=== PATIENT | female | born 1950 | race Caucasian/White ===

== ENCOUNTER 2018-01-17 11:36 | Inpatient (IN) | payer MEDICARE ==
[2018-01-17] MEDS ORDERED: PIPERACILLIN-TAZOBACTAM 3.375 GM in DEXTROSE/WATER 1 50ML.BAG IVPB STA (12:05)
[2018-01-17] MEDS ORDERED: VANCOMYCIN 1,500 MG in SODIUM CHLORIDE 0.9% 250 ML IVPB STA (12:11)
--- NOTE | 2018-01-17 12:19 | ED ---
Wound/Laceration HPI - General Chief Complaint: Wound/Laceration Stated Complaint: wound left foot and toe, sent by dr mattson Time Seen by Provider: 01/17/18 11:48 Source: patient, RN notes reviewed Mode of arrival: wheelchair Limitations: no limitations - History of Present Illness Initial Comments: Physical 59-year-old female history of diabetes who is had a wound to her left great toe for over a week she states she has been on antibiotics for this for about 9 days and has gotten worse she was seen in clinic today and found have a deep wound to the plantar aspect of the toe and sent here for evaluation. She denies much pain she does have neuropathy. She does not recall a particular trauma. No overt fevers or chills sometimes sweats. No chest pain cough abdominal pain she does state that her hemoglobin A1c hours runs high sometimes in the 12 range - Related Data Home Medications Medication Instructions Recorded Confirmed Atenolol 25 mg PO HS 08/22/16 01/17/18 Atorvastatin [Lipitor] 10 mg PO HS 08/22/16 01/17/18 Insulin Detemir [Levemir] 40 unit SQ HS 08/22/16 01/17/18 Omeprazole 20 mg PO DAILY PRN 08/22/16 01/17/18 Cephalexin [Keflex] 500 mg PO TID 01/16/18 01/17/18 Cholecalciferol [Vitamin D3] 2,000 unit PO DAILY 01/16/18 01/17/18 INSULIN LISPRO (humaLOG) [humaLOG] See Protocol SQ AC-TID PRN 01/16/18 01/17/18 Sulfamethox-Tmp 800-160Mg [Bactrim 1 tab PO Q12HR 01/16/18 01/17/18 DS 800-160 mg] Allergies Allergy/AdvReac Type Severity Reaction Status Date / Time aspirin Allergy Anaphylaxis Verified 01/17/18 12:04 ibuprofen [From Motrin] Allergy Anaphylaxis Verified 01/17/18 12:04 NSAIDS (Non-Steroidal Allergy Anaphylaxis Verified 01/17/18 12:04 Anti-Inflamma flu vac Allergy Anaphylaxis Uncoded 01/17/18 12:04 Review of Systems ROS Statement: Those systems with pertinent positive or pertinent negative responses have been documented in the HPI. ROS Other: All systems not noted in ROS Statement are negative. Past Medical History Past Medical History: Asthma, Diabetes Mellitus, GERD/Reflux, Skin Disorder Additional Past Medical History / Comment(s): "gallbladder functioning 30%", hx gout, woung left great toe, frequent UTI's History of Any Multi-Drug Resistant Organisms: None Reported Past Surgical History: Back Surgery, Ear Surgery, Hysterectomy, Tonsillectomy Additional Past Surgical History / Comment(s): pilonidial cyst, spinal fusion, renée cataracts, Past Anesthesia/Blood Transfusion Reactions: Motion Sickness Past Psychological History: No Psychological Hx Reported Smoking Status: Former smoker Past Alcohol Use History: Occasional - Past Family History Mother Family Medical History: Cancer Father Additional Family Medical History / Comment(s): blood clot in arm Brother(s) Family Medical History: Cancer General Exam - General Exam Comments Initial Comments: This is a well-developed well-nourished awake alert oriented 3 female Limitations: no limitations General appearance: alert, in no apparent distress Head exam: Present: atraumatic, normocephalic, normal inspection Eye exam: Present: normal appearance, PERRL, EOMI. Absent: scleral icterus, conjunctival injection, periorbital swelling ENT exam: Present: normal exam, mucous membranes moist Neck exam: Present: normal inspection. Absent: tenderness, meningismus, lymphadenopathy Respiratory exam: Present: normal lung sounds bilaterally. Absent: respiratory distress, wheezes, rales, rhonchi, stridor Cardiovascular Exam: Present: regular rate, normal rhythm, normal heart sounds. Absent: systolic murmur, diastolic murmur, rubs, gallop, clicks GI/Abdominal exam: Present: soft, normal bowel sounds. Absent: distended, tenderness, guarding, rebound, rigid Extremities exam: Present: full ROM, other (Examination left foot reveals an ulceration to the plantar aspect of the great toe distal phalanx it appears be going down to tendon and bone. Also there is evidence of blistering around the toe with diminished capillary refill. No increased temperature. Commands foot appears be unremarkable no lymphangitis. Pulses are maintained no lymphadenopathy proximal to this decreased sensation on exam of the foot). Absent: tenderness, pedal edema, joint swelling, calf tenderness Back exam: Present: normal inspection Neurological exam: Present: alert, oriented X3, CN II-XII intact Psychiatric exam: Present: normal affect, normal mood Skin exam: Present: warm, dry, intact, normal color. Absent: rash Course Vital Signs 01/17/18 01/17/18 11:43 12:46 Temperature 97.5 F L Pulse Rate 57 L 51 L Respiratory 18 19 Rate Blood Pressure 209/82 177/67 O2 Sat by Pulse 98 98 Oximetry Medical Decision Making - Medical Decision Making I did discuss findings with the patient she does not recall any trauma. I did discuss case with Dr. Mcconnell the patient will be admitted with consultation as noted by Dr. Marte and Dr. Cadena. - Lab Data Result diagrams: 01/17/18 12:10 01/17/18 12:10 Lab Results 01/17/18 01/17/18 01/17/18 Range/Units 12:10 12:10 12:10 WBC 17.4 H (3.8-10.6) k/uL RBC 4.28 (3.80-5.40) m/uL Hgb 12.6 (11.4-16.0) gm/dL Hct 38.2 (34.0-46.0) % MCV 89.4 (80.0-100.0) fL MCH 29.4 (25.0-35.0) pg MCHC 32.9 (31.0-37.0) g/dL RDW 13.6 (11.5-15.5) % Plt Count 551 H (150-450) k/uL Neutrophils % 66 % Lymphocytes % 24 % Monocytes % 4 % Eosinophils % 3 % Basophils % 1 % Neutrophils # 11.5 H (1.3-7.7) k/uL Lymphocytes # 4.2 (1.0-4.8) k/uL Monocytes # 0.6 (0-1.0) k/uL Eosinophils # 0.5 (0-0.7) k/uL Basophils # 0.2 (0-0.2) k/uL Sodium 139 (137-145) mmol/L Potassium 6.3 H* (3.5-5.1) mmol/L Chloride 99 (98-107) mmol/L Carbon Dioxide 29 (22-30) mmol/L Anion Gap 11 mmol/L BUN 19 H (7-17) mg/dL Creatinine 1.20 H (0.52-1.04) mg/dL Est GFR (CKD-EPI)AfAm 54 (>60 ml/min/1.73 sqM) Est GFR (CKD-EPI)NonAf 47 (>60 ml/min/1.73 sqM) Glucose 123 H (74-99) mg/dL Plasma Lactic Acid Wallace 1.2 (0.7-2.0) mmol/L Calcium 10.0 (8.4-10.2) mg/dL Magnesium 1.7 (1.6-2.3) mg/dL Total Bilirubin 0.4 (0.2-1.3) mg/dL AST 27 (14-36) U/L ALT 51 (9-52) U/L Alkaline Phosphatase 328 H (38-126) U/L Total Protein 7.1 (6.3-8.2) g/dL Albumin 3.7 (3.5-5.0) g/dL Acetone, Qual Negative (Negative) - Radiology Data Radiology results: report reviewed (I did review the imaging there is evidence a fracture-dislocation of the distal pharynx of left great toe soft tissue ulceration as well but not ruled out), image reviewed Disposition Clinical Impression: Diabetic ulcer of toe, Cellulitis of great toe of left foot, Leukocytosis, Subluxation of metatarsophalangeal joint of great toe Disposition: ADMITTED IP TO THIS [facility] Condition: Stable Referrals: Norman Jewell MD [Primary Care Provider] - 1-2 days
[2018-01-17 12:30] LABS: Basophils # (A) 0.2 k/uL (0-0.2); Basophils % (A) 1 %; Eosinophils # (A) 0.5 k/uL (0-0.7); Eosinophils % (A) 3 %; HCT 38.2 % (34.0-46.0); HGB 12.6 gm/dL (11.4-16.0); Lymphocytes # (A) 4.2 k/uL (1.0-4.8); Lymphocytes % (A) 24 %; MCH 29.4 pg (25.0-35.0); MCHC 32.9 g/dL (31.0-37.0); MCV 89.4 fL (80.0-100.0); Mean Platelet Volume 6.8; Monocytes # (A) 0.6 k/uL (0-1.0); Monocytes % (A) 4 %; Neutrophils # (A) 11.5 k/uL (1.3-7.7); Neutrophils % (A) 66 %; Platelet Count 551 k/uL (150-450); RBC 4.28 m/uL (3.80-5.40); RDW 13.6 % (11.5-15.5); WBC 17.4 k/uL (3.8-10.6)
[2018-01-17 12:36] LABS: ALT 51 U/L (9-52); AST 27 U/L (14-36); Albumin 3.7 g/dL (3.5-5.0); Alkaline Phosphatase 328 U/L (38-126); Anion Gap 11 mmol/L; Blood Urea Nitrogen 19 mg/dL (7-17); Carbon Dioxide 29 mmol/L (22-30); Chloride 99 mmol/L (98-107); Glucose 123 mg/dL (74-99); Magnesium 1.7 mg/dL (1.6-2.3); Sodium 139 mmol/L (137-145); Total Bilirubin 0.4 mg/dL (0.2-1.3); Total Protein 7.1 g/dL (6.3-8.2)
[2018-01-17 12:37] LABS: Potassium 6.3 mmol/L (3.5-5.1)
--- NOTE | 2018-01-17 13:01 | XR ---
EXAMINATION TYPE: XR foot complete LT DATE OF EXAM: 01/17/2018 CLINICAL HISTORY: pain TECHNIQUE: Frontal, lateral and oblique images of the left foot are obtained. COMPARISON: None. FINDINGS: There is fracture or dislocation noted involving the distal phalanx at its base. Soft tissu e ulceration is noted. There is lucency at the base of the distal phalanx of the great toe underlying osteomyelitis is not excluded. IMPRESSION: 1. Fracture dislocation involving the distal phalanx of the left great toe. 2. Soft tissue ulceration as well as a lucency at the base of the distal phalanx. Underlying osteomye litis is difficult to exclude. Correlate clinically.
[2018-01-17] MEDS ORDERED: MORPHINE SULFATE/PF 10MG/10ML VL IV PRN (13:32)
[2018-01-17] MEDS ORDERED: NALOXONE 0.4 MG/ML 1 ML VIAL IV PRN ×2 (13:32→22:04)
[2018-01-17] MEDS ORDERED: PANTOPRAZOLE 40 MG TABLET PO PRN (13:35)
[2018-01-17] MEDS ORDERED: VANCOMYCIN IV PER PHARMACY 1 EACH MISC MISCELLANE PRN ×2 (13:39→21:56)
[2018-01-17] MEDS ORDERED: SODIUM POLYSTYRENE SULFONATE 15 GM/60 ML BOTTLE PO ONE (13:48)
[2018-01-17] MEDS ORDERED: METOPROLOL TARTRATE 5 MG/5 ML VIAL IVP STA (14:31)
[2018-01-17] MEDS: SODIUM CHLORIDE 0.9% 1,000 ML IV SCH (14:40)
[2018-01-17] MEDS ORDERED: SODIUM CHLORIDE 0.9% 500 ML IV STA (15:17)
[2018-01-17] MEDS ORDERED: HEPARIN SODIUM,PORCINE 5,000 UNIT/ML 1 ML VIAL SQ SCH (16:00)
[2018-01-17] MEDS ORDERED: hydrALAZINE HCL 20 MG/ML 1 ML VIAL IVP STA (16:09)
[2018-01-17 17:07] LABS: Glucose,Whole Blood 125 mg/dL (75-99)
[2018-01-17] MEDS: ACETAMINOPHEN TAB 325 MG TAB PO PRN (17:50)
[2018-01-17 20:37] LABS: Glucose,Whole Blood 269 mg/dL (75-99)
[2018-01-17] MEDS ORDERED: INSULIN DETEMIR 100 UNIT/ML 10 ML VIAL SQ SCH (21:00)
[2018-01-17] MEDS ORDERED: ATENOLOL 25 MG TAB PO SCH (21:00)
[2018-01-17] MEDS ORDERED: ONDANSETRON 4 MG/2 ML VIAL IVP PRN (22:04)
[2018-01-17] MEDS ORDERED: MAGNESIUM HYDROXIDE 2,400 MG/10 ML CUP PO PRN (22:04)
[2018-01-17] MEDS ORDERED: LORazepam 0.5 MG TAB PO PRN (22:04)
[2018-01-17] MEDS ORDERED: LACTULOSE 20 GM/30 ML CUP PO PRN (22:04)
[2018-01-17] MEDS ORDERED: MELATONIN 3 MG TABLET PO PRN (22:04)
[2018-01-17] MEDS ORDERED: CALCIUM CARBONATE 500 MG CHEWABLE PO PRN (22:04)
[2018-01-17] MEDS: PIPERACILLIN-TAZOBACTAM 3.375 GM in DEXTROSE/WATER 1 50ML.BAG IVPB SCH (22:05)
[2018-01-17] MEDS: ATORVASTATIN 10 MG TAB PO SCH (22:06)
--- NOTE | 2018-01-17 22:49 | HP ---
HISTORY AND PHYSICAL DATE OF ADMISSION: January 17, 2018. PRESENT COMPLAINT: Left big toe infection. HISTORY OF PRESENTING COMPLAINT: This is a 67-year-old patient of Dr. Jewell. Chronic stable medical conditions include asthma, GERD, peripheral neuropathy. The patient is insulin-requiring diabetic peripheral neuropathy. About 2 weeks ago she noticed some blue discoloration to the left toe and went down to see Dr. Jewell. The patient went through a course of antibiotics including Bactrim, then Keflex and also received IM ceftriaxone. The patient did have some fever, chills. Because of neuropathy, does not have much pain in the foot. She was sent down to the wound center and saw Dr. Tommy Scruggs where he sent the patient down to the ER. X-ray did show some lucency in the distal phalanx and evidence of fracture. The patient admitted to rule out possible osteomyelitis. The patient did receive Kayexalate in the ER for elevated potassium. The patient does not remember injuring her foot. REVIEW OF SYSTEMS: Constitutional: Fever, chills, sweating. HEENT none. Respiratory none. Cardiovascular none. Gastrointestinal: Occasional heartburn. Genitourinary: None. Musculoskeletal none. Dermatological as above. Lymphatics none. Psychiatry none. Neurological: Numbness and tingling peripherally. Decreased sensation. PAST MEDICAL HISTORY: Of asthma, diabetes, GERD, gout, peripheral neuropathy, frequent UTIs. PAST SURGICAL HISTORY: Back surgery, ear surgery, hysterectomy, tonsillectomy, , spinal fusion, back surgery, remove spurs, bilateral cataracts, shots in the eye for retinal detachment. SOCIAL HISTORY: The patient smoked for about 40 years 1 pack a day, stopped in 2005. . FAMILY HISTORY: Blood clot in the arm, cancer type unknown. HOME MEDICATIONS: 1. Bactrim DS 1 tab p.o. q.12. 2. Omeprazole 20 mg daily p.r.n. 3. Levemir 40 units subcu q.h.s. 4. Humalog per scale t.i.d. 5. Vitamin D3 2000 units p.o. daily. 6. Keflex 100 mg t.i.d. 7. Lipitor 10 mg q.h.s. 8. Zoloft 25 mg q.h.s. ALLERGIES: TO ASPIRIN, BACTRIM, FLU VAC. PHYSICAL EXAMINATION: Vital signs on presentation: Temperature 98.7, pulse 57, respiration 18, blood pressure 187/80, pulse ox 98% on room air. GENERAL APPEARANCE: General appearance well built, BMI 35, lying in bed comfortable. Eyes: Pupils equal. Conjunctivae normal. HEENT external appearance of nose and ears normal. Oral cavity normal. Neck JVD not raised. Mass not palpable. Respiratory effort lungs are clear. Cardiovascular 1st and second sounds normal. No edema. ABDOMEN: Soft, nontender. Liver and spleen not palpable. Lymphatics: No lymph nodes palpable in the neck and axilla. Psychiatry: Alert and oriented times three. Mood and affect normal. Neurological: Pupils equal. Cranial nerves grossly intact. Decreased sensation distally. Extremities not able to feel any dorsalis pedis on both the feet. The patient has got discoloration and swelling of the left big toe including on the distal aspect with a wound on the plantar aspect of the toe with some redness. ASSESSMENT: 1. Acute left big toe wound, especially on the plantar aspect with a history of fever and chills at home in a patient who has got neuropathy. X-ray showing some lucency. The patient may have underlying osteomyelitis, having failed outpatient treatment. 2. Hyperkalemia. The patient is on Bactrim for underlying possible renal failure. At this point cannot state this is acute on chronic. 3. Essential hypertension with urgency. 4. Sinus bradycardia from patient being on beta joselyn. 5. Intermittent asthma controlled. 6. Diabetes mellitus type 2, chronically on insulin. 7. Peripheral neuropathy secondary to diabetes. PLAN: At this point patient is started on IV vancomycin and Zosyn. Infectious Disease was consulted. The patient did receive Kayexalate. We will put the patient on a low- potassium diet. Workup the patient to telemetry. Repeat potassium has been ordered. We will also hydrate the patient and repeat potassium in the morning. Three-phase bone scan has been ordered. Pharmacy will adjust the vancomycin based on the renal function. Given the bradycardia we will stop patient Tenormin and start the patient on amlodipine 5 mg twice a day. Care was discussed with the patient. Questions were answered. Copy to Dr. Jewell. MMKAI / YENNIFERN: [id number] /
[2018-01-17] MEDS: amLODIPine 5 MG TAB PO SCH (22:50)
[2018-01-18] MEDS ORDERED: DIPH,PERTUS(ACELL)TETVAC-LF 0.5 ML VIAL IM ONE (00:22)
--- NOTE | 2018-01-18 00:33 | P.CONS ---
History of Present Illness - Reason for Consult Consult date: 01/17/18 - Chief Complaint Ulcer left foot - History of Present Illness 67-year-old female with a long-standing history of diabetes mellitus type 2 poorly controlled relates to a hemoglobin A1c and a somewhat recent past of 12 that has improved to the about 11 range recently. Best A1c in the last year was nine Patient relates that she noticed over the last several days that the left great toe had begun to swell and a white blistered material forming on the dorsum of the toe. It became swollen and erythematous. 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 She was unaware that there is an ulceration to the plantar surface of the first metatarsal head. Because of the change to the foot she was seen at the wound healing center today. With evidence of the active infection she was admitted to hospital in the infectious diseases consultation was requested. Patient believes that she's probably had a fever and chill but has not taken her temperature. Has not recently taken her blood sugars but expected them to be elevated. She is feeling poorly with fever symptomatically and chills. She however is denying significant headache or visual changes. No chest pains or pressures or shortness of breath. Denies abdominal pains. No nausea or emesis. Review of Systems HEENT:Denies headache or acute visual change. Denies sinus or mouth discomforts. Denies neck stiffness or pain. Denies significant oral cavity pain. Denies difficulty on swallowing. Known poor dentition Lungs: Denies significant shortness of breath, cough, sputum production, or hemoptysis. Cardiovascular: Denies significant shortness of breath, chest pain, chest wall pain, orthopnea, dyspnea on exertion, syncope Gastrointestinal:Denies nausea, vomiting, diarrhea, constipation, hematemesis, melena, hematochezia. No no significant change of bowel habit noticed. Musculoskeletal: denies significant myalgias or arthralgias. No new joint swelling. Denies new back pain. Skin: As per the HPI new-onset blister type lesion to the left great toe Neuro: Denies headache or visual change. Denies any new onset weakness or difficulty with ambulation. Denies falls or seizures. He has known peripheral neuropathy with lack of sensation to her feet Psychiatric:Denies anxiety or depression. Endocrine: Significant fatigue, poor control of her diabetes, weight gain Past Medical History Past Medical History: Asthma, Diabetes Mellitus, GERD/Reflux, Skin Disorder Additional Past Medical History / Comment(s): "gallbladder functioning 30%", hx gout, woung left great toe, frequent UTI's, pt stated she is on bp and cholesterol meds as a preventative d/t her dm. neuropthy. History of Any Multi-Drug Resistant Organisms: None Reported Past Surgical History: Back Surgery, Ear Surgery, Hysterectomy, Tonsillectomy Additional Past Surgical History / Comment(s): pilonidial cyst, spinal fusion, backsx to removed spurs.renée cataracts, shots in eyes from retinal dr. Past Anesthesia/Blood Transfusion Reactions: Motion Sickness Additional Psychological History / Comment(s): . 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 No international travel. No animal exposures. Stopped tobacco smoking several years ago and denies significant alcohol use Smoking Status: Former smoker - Past Family History Mother Family Medical History: Cancer Father Additional Family Medical History / Comment(s): blood clot in arm Brother(s) Family Medical History: Cancer Medications and Allergies Home Medications and Allergies Comment(s): Current Medications Acetaminophen (Tylenol Tab) 650 mg PO Q6HR PRN PRN Reason: Fever and/ or Mild Pain Last Admin: 01/17/18 17:50 Dose: 650 mg Amlodipine Besylate (Norvasc) 5 mg PO BID [facility] Last Admin: 01/17/18 22:50 Dose: 5 mg Atorvastatin Calcium (Lipitor) 10 mg PO HS [facility] Last Admin: 01/17/18 22:06 Dose: 10 mg Calcium Carbonate/Glycine (Tums) 1,000 mg PO Q4HR PRN PRN Reason: Dyspepsia Cholecalciferol (Vitamin D3) 2,000 unit PO DAILY@1200 PREET Enoxaparin Sodium (Lovenox) 40 mg SQ DAILY [facility] Piperacillin/Tazobactam/ (Dextrose 3.375 gm/ IV Solution) 50 mls @ 12.5 mls/hr IVPB Q8H [facility] Last Admin: 01/17/18 22:05 Dose: 12.5 mls/hr Sodium Chloride (Saline 0.9%) 1,000 mls @ 80 mls/hr IV .[id number] [facility] Last Admin: 01/17/18 14:40 Dose: 80 mls/hr Vancomycin HCl 1,500 mg/ (Sodium Chloride) 250 mls @ 125 mls/hr IVPB Q24HR@ 1200 [facility] Insulin Aspart (Novolog) 5 unit SQ AC-TID [facility] Insulin Detemir (Levemir) 40 unit SQ HS [facility] Last Admin: 01/17/18 22:06 Dose: 40 unit Lactulose (Cephulac) 20 gm PO DAILY PRN PRN Reason: Constipation Lorazepam (Ativan) 0.5 mg PO Q6HR PRN PRN Reason: Anxiety Magnesium Hydroxide (Milk Of Magnesia) 2,400 mg PO DAILY PRN PRN Reason: Constipation Melatonin (Melatonin) 3 mg PO HS PRN PRN Reason: Insomnia Morphine Sulfate (Morphine Sulfate) 4 mg IV Q4HR PRN PRN Reason: Severe Pain Naloxone HCl (Narcan) 0.2 mg IV Q2M PRN PRN Reason: Opioid Reversal Naloxone HCl (Narcan) 0.2 mg IV Q2M PRN PRN Reason: Opioid Reversal Ondansetron HCl (Zofran) 4 mg IVP Q8HR PRN PRN Reason: Nausea And Vomiting Pantoprazole Sodium (Protonix) 40 mg PO DAILY PRN PRN Reason: GERD Home Medications Medication Instructions Recorded Confirmed Type Atenolol 25 mg PO HS 08/22/16 01/17/18 History Atorvastatin [Lipitor] 10 mg PO HS 08/22/16 01/17/18 History Insulin Detemir [Levemir] 40 unit SQ HS 08/22/16 01/17/18 History Omeprazole 20 mg PO DAILY PRN 08/22/16 01/17/18 History Cephalexin [Keflex] 500 mg PO TID 01/16/18 01/17/18 History Cholecalciferol [Vitamin D3] 2,000 unit PO DAILY 01/16/18 01/17/18 History INSULIN LISPRO (humaLOG) [humaLOG] See Protocol SQ AC-TID PRN 01/16/18 01/17/18 History Sulfamethox-Tmp 800-160Mg [Bactrim 1 tab PO Q12HR 01/16/18 01/17/18 History DS 800-160 mg] Allergies Allergy/AdvReac Type Severity Reaction Status Date / Time aspirin Allergy Anaphylaxis Verified 01/17/18 12:04 ibuprofen [From Motrin] Allergy Anaphylaxis Verified 01/17/18 12:04 NSAIDS (Non-Steroidal Allergy Anaphylaxis Verified 01/17/18 12:04 Anti-Inflamma flu vac Allergy Anaphylaxis Uncoded 01/17/18 12:04 Physical Exam Vitals: Vital Signs Temp Pulse Pulse Resp BP BP Pulse Ox 01/17/18 23:00 97.6 F 61 16 141/65 96 01/17/18 16:24 56 L 19 165/72 01/17/18 16:07 55 L 16 188/77 96 01/17/18 16:00 19 01/17/18 15:53 55 L 16 195/80 99 01/17/18 15:00 191/74 01/17/18 14:37 52 L 16 187/80 98 01/17/18 14:25 98.0 F 54 L 19 220/83 98 01/17/18 12:46 51 L 19 177/67 98 01/17/18 11:43 97.5 F L 57 L 18 209/82 98 Intake and Output 01/17/18 01/17/18 01/18/18 14:59 22:59 06:59 Intake Total 280 Balance 280 Intake: Intake, IV Titration 280 Amount Sodium Chloride 0.9% 1, 280 000 ml @ 80 mls/hr IV . [id number] [facility] Rx#:[id number] Other: # Voids 1 Weight 83.915 kg 67-year-old female presents to Hospital from the [facility] where there is notation of the acute infectious process of the left great toe HEENT: Anicteric conjunctiva are pink and moist nasal mucosa grossly intact without significant lesions, there is no thrush. Neck: The neck is supple without significant lymphadenopathy or thyromegaly. Lungs: Good bilateral air entry without significant crackles or wheezing. There is no significant bronchial sounds. There is no egophony or dullness. Heart: Regular rate and rhythm with an audible S1-S2, no S3 no S4. There is no significant murmur click or rub, PMI was nondisplaced. Abdomen: Positive bowel sounds soft and nontender without palpable masses or organomegaly. There was no guarding or rebound. Extremities: The upper extremities have excellent pulses they are symmetric, no significant petechiae or telangiectasia. No splinter hemorrhages were noted. The right lower extremity has no difficulties in that there is no smoking edema , or lesions. The left lower extremity has evidence of some mild generalized swelling to the foot it is greatest at the great toe. Is evidence of a recent bulla that has drained. There is ulcerations the plantar surface of the great toe at the first metatarsal head measuring at 2 x 2 x 0.3 cm with some purulent drainage that has been sent for culture. There is surrounding erythema which distracts the lateral surface of the calf. It is not very tender. There is diminished peripheral pulses but they are palpable. Neuro: Awake alert oriented to person place and time. There are no acute new gross focal sensory motor deficits. However there is bilateral peripheral neuropathy to the feet. Results CBC & Chem 7: 01/17/18 12:10 01/17/18 22:10 Labs: Abnormal Lab Results - Last 24 Hours (Table) 01/17/18 01/17/18 01/17/18 Range/Units 12:10 12:10 17:05 WBC 17.4 H (3.8-10.6) k/uL Plt Count 551 H (150-450) k/uL Neutrophils # 11.5 H (1.3-7.7) k/uL Potassium 6.3 H* (3.5-5.1) mmol/L BUN 19 H (7-17) mg/dL Creatinine 1.20 H (0.52-1.04) mg/dL Glucose 123 H (74-99) mg/dL POC Glucose (mg/dL) 125 H (75-99) mg/dL Alkaline Phosphatase 328 H (38-126) U/L 01/17/18 01/17/18 Range/Units 20:33 22:10 WBC (3.8-10.6) k/uL Plt Count (150-450) k/uL Neutrophils # (1.3-7.7) k/uL Potassium 5.8 H (3.5-5.1) mmol/L BUN (7-17) mg/dL Creatinine (0.52-1.04) mg/dL Glucose (74-99) mg/dL POC Glucose (mg/dL) 269 H (75-99) mg/dL Alkaline Phosphatase (38-126) U/L Laboratory Results WBC 17.4 k/uL (3.8-10.6) H 01/17/18 12:10 RBC 4.28 m/uL (3.80-5.40) 01/17/18 12:10 Hgb 12.6 gm/dL (11.4-16.0) 01/17/18 12:10 Hct 38.2 % (34.0-46.0) 01/17/18 12:10 MCV 89.4 fL (80.0-100.0) 01/17/18 12:10 MCH 29.4 pg (25.0-35.0) 01/17/18 12:10 MCHC 32.9 g/dL (31.0-37.0) 01/17/18 12:10 RDW 13.6 % (11.5-15.5) 01/17/18 12:10 Plt Count 551 k/uL (150-450) H 01/17/18 12:10 Neutrophils % 66 % 01/17/18 12:10 Lymphocytes % 24 % 01/17/18 12:10 Monocytes % 4 % 01/17/18 12:10 Eosinophils % 3 % 01/17/18 12:10 Basophils % 1 % 01/17/18 12:10 Neutrophils # 11.5 k/uL (1.3-7.7) H 01/17/18 12:10 Lymphocytes # 4.2 k/uL (1.0-4.8) 01/17/18 12:10 Monocytes # 0.6 k/uL (0-1.0) 01/17/18 12:10 Eosinophils # 0.5 k/uL (0-0.7) 01/17/18 12:10 Basophils # 0.2 k/uL (0-0.2) 01/17/18 12:10 Sodium 139 mmol/L (137-145) 01/17/18 12:10 Potassium 5.8 mmol/L (3.5-5.1) H 01/17/18 22:10 Chloride 99 mmol/L (98-107) 01/17/18 12:10 Carbon Dioxide 29 mmol/L (22-30) 01/17/18 12:10 Anion Gap 11 mmol/L 01/17/18 12:10 BUN 19 mg/dL (7-17) H 01/17/18 12:10 Creatinine 1.20 mg/dL (0.52-1.04) H 01/17/18 12:10 Est GFR (CKD-EPI)AfAm 54 (>60 ml/min/1.73 sqM) 01/17/18 12:10 Est GFR (CKD-EPI)NonAf 47 (>60 ml/min/1.73 sqM) 01/17/18 12:10 Glucose 123 mg/dL (74-99) H 01/17/18 12:10 POC Glucose (mg/dL) 269 mg/dL (75-99) H 01/17/18 20:33 POC Glu Case Manager ID Yoana Starks 01/17/18 20:33 Plasma Lactic Acid Wallace 1.2 mmol/L (0.7-2.0) 01/17/18 12:10 Calcium 10.0 mg/dL (8.4-10.2) 01/17/18 12:10 Magnesium 1.7 mg/dL (1.6-2.3) 01/17/18 12:10 Total Bilirubin 0.4 mg/dL (0.2-1.3) 01/17/18 12:10 AST 27 U/L (14-36) 01/17/18 12:10 ALT 51 U/L (9-52) 01/17/18 12:10 Alkaline Phosphatase 328 U/L (38-126) H 01/17/18 12:10 Total Protein 7.1 g/dL (6.3-8.2) 01/17/18 12:10 Albumin 3.7 g/dL (3.5-5.0) 01/17/18 12:10 Acetone, Qual Negative (Negative) 01/17/18 12:10 Assessment and Plan (1) Leukocytosis Current Visit: Yes Status: Acute Code(s): D72.829 - ELEVATED WHITE BLOOD CELL COUNT, UNSPECIFIED SNOMED Code(s): 917939662 (2) Diabetic foot ulcer associated with type 2 diabetes mellitus, with fat layer exposed Narrative/Plan: 67-year-old female presents to the hospital from the wound healing Center with concerns to them extensive left diabetic foot ulceration involving the great toe. It is time information is given to the patient about the great importance of that toe and how it impacts balance and walking. It is crucial for ambulation and if the toe can be salvaged he can directly impact ambulation which then impacts quality of life. Bone scan is requested to evaluate for underlying bony infection which appears to be occurring. May need some surgical debridement. Antibiotics therapy with Zosyn and vancomycin has begun. Cultures obtained. We'll update her tetanus vaccine, ensure she has adequate protein intake, and a multivitamin. Elevate the foot at rest. Current Visit: Yes Status: Acute Code(s): E11.621 - TYPE 2 DIABETES MELLITUS WITH FOOT ULCER; L97.502 - NON-PRS CHRONIC ULCER OTH PRT UNSP FOOT W FAT LAYER EXPOSED SNOMED Code(s): 0281735753191
[2018-01-18] MEDS: PIPERACILLIN-TAZOBACTAM 3.375 GM in DEXTROSE/WATER 1 50ML.BAG IVPB SCH ×3 (05:17→21:33)
[2018-01-18 07:18] LABS: Glucose,Whole Blood 243 mg/dL (75-99)
[2018-01-18 07:42] LABS: Basophils # (A) 0.1 k/uL (0-0.2); Basophils % (A) 1 %; Eosinophils # (A) 0.4 k/uL (0-0.7); Eosinophils % (A) 3 %; HCT 33.6 % (34.0-46.0); HGB 10.4 gm/dL (11.4-16.0); Lymphocytes # (A) 4.1 k/uL (1.0-4.8); Lymphocytes % (A) 33 %; MCH 28.2 pg (25.0-35.0); MCHC 30.9 g/dL (31.0-37.0); Mean Platelet Volume 6.8; Monocytes # (A) 0.6 k/uL (0-1.0); Monocytes % (A) 5 %; Neutrophils % (A) 56 %; Platelet Count 462 k/uL (150-450); RBC 3.69 m/uL (3.80-5.40); RDW 13.7 % (11.5-15.5); WBC 12.6 k/uL (3.8-10.6)
[2018-01-18] MEDS: INSULIN ASPART 100 UNIT/ML 1 ML 10 ML VIAL SQ SCH ×3 (07:51→18:05)
[2018-01-18] MEDS: SODIUM CHLORIDE 0.9% 1,000 ML IV SCH ×2 (07:52→17:17)
[2018-01-18] MEDS: amLODIPine 5 MG TAB PO SCH ×2 (07:52→20:50)
[2018-01-18] MEDS: ENOXAPARIN 40 MG/0.4 ML SYRINGE SQ SCH (07:53)
[2018-01-18 08:07] LABS: Potassium 5.2 mmol/L (3.5-5.1)
[2018-01-18 11:47] LABS: Glucose,Whole Blood 255 mg/dL (75-99)
[2018-01-18] MEDS ORDERED: VANCOMYCIN 1,500 MG in SODIUM CHLORIDE 0.9% 250 ML IVPB SCH (12:00)
[2018-01-18] MEDS: MULTIVITAMINS, THERA 1 EACH TAB PO SCH (12:27)
[2018-01-18] MEDS: CHOLECALCIFEROL 1,000 UNIT TAB PO SCH (12:27)
--- NOTE | 2018-01-18 14:07 | NM ---
EXAMINATION TYPE: NM bone 3 phase DATE OF EXAM: 01/18/2018 COMPARISON: Left foot 01/17/2018 HISTORY: Osteomyelitis, open sore plantar surface left great toe Triple phase bone scintigraphy was performed following the injection of24.9 mCi Tc 99m MDP. Immediat e images and 5 hours post injection images acquired. FINDINGS: Increased blood flow and blood pool activity is identified at the first digit of the left foot, delay ed imaging shows more focal uptake involving the first digit of the left foot. IMPRESSION: Findings compatible with osteomyelitis.
--- NOTE | 2018-01-18 14:59 | CDI ---
Last Revision, September 2017 Documentation Clarification Form Date: 01/18/18 [id number] From: Karen Arce RN, CCDS Admit Date: 01/17/2018 1:32:00 PM Patient Name: Naman Palacios Visit Number: [id number] ATTENTION: The Clinical Documentation Specialists (CDI) and [facility] Coding Staff appreciate your assistance in clarifying documentation. Please respond to the clarification below the line at the bottom and electronically sign. The CDI & [facility] Coding staff will review the response and follow-up if needed. Please note: Queries are made part of the Legal Health Record. If you have any questions, please contact the author of this message via ITS. Dr. Bravo Mcconnell Renal failure has been documented in the H&P and requires further specificity. History/Risk Factors: DM with associated complications, HTN Patients baseline BUN/CR/GFR: no previous recent labs available Clinical Indicators: 01/17 H&P: "The patient is on Bactrim for underlying possible renal failure." Current BUN: 19/24 Cr: 1.2/1.36 GFR : 47/40 Treatment: IVF: 0.9% NS @ 80 cc/hr In order to capture the severity of condition, please clarify if the condition signifies: Acute renal failure, Please specify etiology (if known): Cortical Necrosis Medullary Necrosis Tubular Necrosis Acute kidney injury Acute on chronic renal failure CKD Stage 1 GFR >90 CKD Stage 2 GFR 60-89 CKD Stage 3 GFR 30-59 CKD Stage 4 GFR 15-29 CKD Stage 5 GFR <15 Chronic renal failure/Chronic Kidney disease (CKD) please stage if known CKD Stage 1 GFR >90 CKD Stage 2 GFR 60-89 CKD Stage 3 GFR 30-59 CKD Stage 4 GFR 15-29 CKD Stage 5 GFR <15 ESRD Other, please specify Unable to determine Please continue to document in your progress notes and discharge summary in order to capture severity of illness and risk of mortality. Include clinical findings that support your diagnosis. MTDD
[2018-01-18] MEDS ORDERED: MORPHINE ORAL SOLN 10 MG/5 ML CUP PO PRN (15:11)
--- NOTE | 2018-01-18 16:32 | PN ---
PROGRESS NOTE DATE OF SERVICE: 01/18/18. PRESENT COMPLAINT: Left big toe infection. INTERVAL HISTORY: This patient with diabetic neuropathy presented with left big toe infection. Bone scan has come back showing osteomyelitis. I did speak with Dr. Tommy Scruggs from the [facility]. He said when he debrided the wound yesterday a piece of distal bone did come out and he did send it off for culture. The patient has no pain. Getting IV antibiotics. REVIEW OF SYSTEMS: Done for constitutional, cardiovascular, GI, pulmonary; relevant findings as above. CURRENT MEDICATIONS: Reviewed that include IV Zosyn and vancomycin. PHYSICAL EXAMINATION: Afebrile, pulse 56, respiration 16, blood pressure 143/76, pulse ox 97% on room air room. GENERAL APPEARANCE: Sitting up in bed comfortable. EYES: Pupils equal. Conjunctivae normal. HEENT: External nose and ears normal. Oral cavity normal. NECK: JVD not raised. Mass not palpable. RESPIRATORY: Effort, lungs are clear. CARDIOVASCULAR: First and second sounds normal. No edema. ABDOMEN: Soft, nontender. Liver and spleen not palpable. PSYCHIATRY: Alert and oriented x3. Mood and affect are normal. EXTREMITY: Left big toe in a dressing. INVESTIGATIONS: White count 12.6, hemoglobin 10.4, potassium 5.2, BUN 24, creatinine 1.36. A bone scan possible osteomyelitis. ASSESSMENT: 1. Acute left big toe osteomyelitis. 2. Hyperkalemia secondary to renal failure. Patient on Bactrim, improving. 3. Essential hypertension with urgency. 4. Sinus bradycardia for patient being on beta joselyn. 5. Intermittent asthma, controlled. 6. Diabetes mellitus type 2, chronically on insulin, uncontrolled with hypoglycemia. 7. Peripheral neuropathy secondary to diabetes. 8. Suspect underlying chronic kidney disease. We will need further workup. PLAN: We will increase the patient's Levemir to 46 units at night and increase the Humalog to 10 units with each meal. Also send off a UA and renal ultrasound. We will also check patient's phosphorus and intact parathyroid hormone. Given renal function will be careful with patient being on vancomycin. Dr. Cadena is following the same. Follow renal function closely. MMODL / IJN: [id number] /
[2018-01-18 17:43] LABS: Glucose,Whole Blood 228 mg/dL (75-99)
--- NOTE | 2018-01-18 19:17 | US ---
EXAMINATION TYPE: US kidneys/renal and bladder DATE OF EXAM: 01/18/2018 COMPARISON: US 2013 CLINICAL HISTORY: renal failure/assess kidney. Renal failure EXAM MEASUREMENTS: Right Kidney: 10.1 x 5.6 x 4.0 cm Left Kidney: 11.0 x 6.1 x 5.0 cm Difficult and limited study due to patient body habitus Right Kidney: no hydro or masses seen Left Kidney: no hydro or masses seen Bladder: wnl Bilateral Jets seen: yes There is no evidence for hydronephrosis. No nephrolithiasis. No masses. The urinary bladder is ane choic. Bilateral ureteral jets are seen. IMPRESSION: NO ACUTE PROCESS OR FOCAL FINDINGS.
[2018-01-18] MEDS: ACETAMINOPHEN TAB 325 MG TAB PO PRN (20:05)
[2018-01-18 20:08] LABS: Glucose,Whole Blood 214 mg/dL (75-99)
--- NOTE | 2018-01-18 20:08 | CONS ---
CONSULTATION This is a 67-year-old diabetic female. She has been admitted to [facility] with acute onset of infection involving the left big toe, plantar aspect. The patient has no history of trauma. The patient has an open wound at the plantar aspect. Measurement is 2 x 2 x 0.5 cm with purulent discharge noted. Culture has been taken by the emergency room. The patient also has some blister formation on the dorsal aspect of the foot which has been opened up, and pulses are diminished and present by the Doppler. X-ray of the foot showed there is dislocation of the distal phalanx of the left great toe. Osteomyelitis cannot be ruled out. MEDICAL HISTORY: 1. History of diabetes. 2. Peripheral neuropathy. 3. Chronic kidney disease. PHYSICAL EXAMINATION: Patient was seen in her room. NECK: Supple. Trachea central. CHEST: Clear to auscultation. ABDOMEN: Soft. Femorals are 1+, posterior tibial, dorsal pedis by the Doppler. The patient has an open wound on the plantar aspect of her left foot with purulent drainage and dislocation of the distal phalanx by x-ray. PLAN: Patient is on IV antibiotic under care of Dr. Cadena. This toe is not salvageable. We will continue with IV antibiotic. She will need amputation of the left big toe. Discussed with the patient. We will follow with you. MMODL / IJN: [id number] /
[2018-01-18] MEDS: ATORVASTATIN 10 MG TAB PO SCH (20:51)
[2018-01-18] MEDS ORDERED: INSULIN DETEMIR 100 UNIT/ML 10 ML VIAL SQ SCH (21:00)
--- NOTE | 2018-01-18 23:13 | P.PN ---
Subjective Progress Note Date: 01/18/18 Principal diagnosis: Diabetic foot ulcer 67-year-old female with a long-standing history of diabetes mellitus type 2 poorly controlled relates to a hemoglobin A1c and a somewhat recent past of 12 that has improved to the about 11 range recently. Best A1c in the last year was nine Patient relates that she noticed over the last several days that the left great toe had begun to swell and a white blistered material forming on the dorsum of the toe. It became swollen and erythematous. 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 She was unaware that there is an ulceration to the plantar surface of the first metatarsal head. Because of the change to the foot she was seen at the wound healing center today. With evidence of the active infection she was admitted to hospital in the infectious diseases consultation was requested. Patient believes that she's probably had a fever and chill but has not taken her temperature. Has not recently taken her blood sugars but expected them to be elevated. She is feeling poorly with fever symptomatically and chills. She however is denying significant headache or visual changes. No chest pains or pressures or shortness of breath. Denies abdominal pains. No nausea or emesis. 01/18/2018 reveals that the patient had evaluation today. Evidence of the fracture of the distal part of the great toe. Ultrasound of kidneys have been performed. Is evaluated by vascular surgery and likely will need it distal toe amputation in the near future. Objective - Vital Signs Vital signs: Vital Signs Temp 97.6 F 01/18/18 22:17 Pulse 64 01/18/18 22:17 Resp 16 01/18/18 22:17 BP 115/72 01/18/18 22:17 Pulse Ox 96 01/18/18 22:17 Intake & Output 01/18/18 01/18/18 01/19/18 06:59 18:59 06:59 Intake Total 650 600 590 Balance 650 600 590 Intake: Intake, IV Titration 650 600 Amount Piperacillin-Tazobactam 3 50 .375 gm In Dextrose/Water 1 50ml.bag @ 12.5 mls/hr IVPB Q8H PREET Rx#: [id number] Sodium Chloride 0.9% 1, 600 600 000 ml @ 80 mls/hr IV . [id number] PREET Rx#:[id number] Oral 590 Other: Voiding Method Toilet Toilet # Voids 2 2 - Exam 67-year-old female presents to Hospital from the [facility] where there is notation of the acute infectious process of the left great toe HEENT: Anicteric conjunctiva are pink and moist nasal mucosa grossly intact without significant lesions, there is no thrush. Neck: The neck is supple without significant lymphadenopathy or thyromegaly. Lungs: Good bilateral air entry without significant crackles or wheezing. There is no significant bronchial sounds. There is no egophony or dullness. Heart: Regular rate and rhythm with an audible S1-S2, no S3 no S4. There is no significant murmur click or rub, PMI was nondisplaced. Abdomen: Positive bowel sounds soft and nontender without palpable masses or organomegaly. There was no guarding or rebound. Extremities: The upper extremities have excellent pulses they are symmetric, no significant petechiae or telangiectasia. No splinter hemorrhages were noted. The right lower extremity has no difficulties in that there is no smoking edema , or lesions. The left lower extremity has evidence of some mild generalized swelling to the foot it is greatest at the great toe. Is evidence of a recent bulla that has drained. There is ulcerations the plantar surface of the great toe at the first metatarsal head measuring at 2 x 2 x 0.3 cm with some purulent drainage that has been sent for culture. There is surrounding erythema which distracts the lateral surface of the calf. It is not very tender. There is diminished peripheral pulses but they are palpable. Neuro: Awake alert oriented to person place and time. There are no acute new gross focal sensory motor deficits. However there is bilateral peripheral neuropathy to the feet. - Labs CBC & Chem 7: 01/18/18 06:38 01/18/18 06:38 Labs: Abnormal Lab Results - Last 24 Hours (Table) 01/18/18 01/18/18 01/18/18 Range/Units 06:38 06:38 07:04 WBC 12.6 H (3.8-10.6) k/uL RBC 3.69 L (3.80-5.40) m/uL Hgb 10.4 L (11.4-16.0) gm/dL Hct 33.6 L (34.0-46.0) % MCHC 30.9 L (31.0-37.0) g/dL Plt Count 462 H (150-450) k/uL Potassium 5.2 H (3.5-5.1) mmol/L BUN 24 H (7-17) mg/dL Creatinine 1.36 H (0.52-1.04) mg/dL Glucose 226 H (74-99) mg/dL POC Glucose (mg/dL) 243 H (75-99) mg/dL 01/18/18 01/18/18 01/18/18 Range/Units 11:44 17:38 20:07 WBC (3.8-10.6) k/uL RBC (3.80-5.40) m/uL Hgb (11.4-16.0) gm/dL Hct (34.0-46.0) % MCHC (31.0-37.0) g/dL Plt Count (150-450) k/uL Potassium (3.5-5.1) mmol/L BUN (7-17) mg/dL Creatinine (0.52-1.04) mg/dL Glucose (74-99) mg/dL POC Glucose (mg/dL) 255 H 228 H 214 H (75-99) mg/dL Microbiology - Last 24 Hours (Table) 01/17/18 12:10 Blood Culture - Preliminary Blood No Growth after 24 hours 01/18/18 02:53 Gram Stain - Preliminary Toe - Left First Wound Culture - Preliminary Laboratory Results WBC 12.6 k/uL (3.8-10.6) H 01/18/18 06:38 RBC 3.69 m/uL (3.80-5.40) L 01/18/18 06:38 Hgb 10.4 gm/dL (11.4-16.0) L 01/18/18 06:38 Hct 33.6 % (34.0-46.0) L 01/18/18 06:38 MCV 91.0 fL (80.0-100.0) 01/18/18 06:38 MCH 28.2 pg (25.0-35.0) 01/18/18 06:38 MCHC 30.9 g/dL (31.0-37.0) L 01/18/18 06:38 RDW 13.7 % (11.5-15.5) 01/18/18 06:38 Plt Count 462 k/uL (150-450) H 01/18/18 06:38 Neutrophils % 56 % 01/18/18 06:38 Lymphocytes % 33 % 01/18/18 06:38 Monocytes % 5 % 01/18/18 06:38 Eosinophils % 3 % 01/18/18 06:38 Basophils % 1 % 01/18/18 06:38 Neutrophils # 7.0 k/uL (1.3-7.7) 01/18/18 06:38 Lymphocytes # 4.1 k/uL (1.0-4.8) 01/18/18 06:38 Monocytes # 0.6 k/uL (0-1.0) 01/18/18 06:38 Eosinophils # 0.4 k/uL (0-0.7) 01/18/18 06:38 Basophils # 0.1 k/uL (0-0.2) 01/18/18 06:38 Sodium 138 mmol/L (137-145) 01/18/18 06:38 Potassium 5.2 mmol/L (3.5-5.1) H 01/18/18 06:38 Chloride 103 mmol/L (98-107) 01/18/18 06:38 Carbon Dioxide 24 mmol/L (22-30) 01/18/18 06:38 Anion Gap 11 mmol/L 01/18/18 06:38 BUN 24 mg/dL (7-17) H 01/18/18 06:38 Creatinine 1.36 mg/dL (0.52-1.04) H 01/18/18 06:38 Est GFR (CKD-EPI)AfAm 46 (>60 ml/min/1.73 sqM) 01/18/18 06:38 Est GFR (CKD-EPI)NonAf 40 (>60 ml/min/1.73 sqM) 01/18/18 06:38 Glucose 226 mg/dL (74-99) H 01/18/18 06:38 POC Glucose (mg/dL) 214 mg/dL (75-99) H 01/18/18 20:07 POC Glu Shell Mold Bonder JOSIE Anabella León 01/18/18 20:07 Plasma Lactic Acid Wallace 1.2 mmol/L (0.7-2.0) 01/17/18 12:10 Calcium 9.0 mg/dL (8.4-10.2) 01/18/18 06:38 Magnesium 1.7 mg/dL (1.6-2.3) 01/17/18 12:10 Total Bilirubin 0.4 mg/dL (0.2-1.3) 01/17/18 12:10 AST 27 U/L (14-36) 01/17/18 12:10 ALT 51 U/L (9-52) 01/17/18 12:10 Alkaline Phosphatase 328 U/L (38-126) H 01/17/18 12:10 Total Protein 7.1 g/dL (6.3-8.2) 01/17/18 12:10 Albumin 3.7 g/dL (3.5-5.0) 01/17/18 12:10 Acetone, Qual Negative (Negative) 01/17/18 12:10 Microbiology 01/17/18 12:10 Blood Blood Culture - Preliminary No Growth after 24 hours 01/18/18 02:53 Toe - Left First Gram Stain - Preliminary 01/18/18 02:53 Toe - Left First Wound Culture - Preliminary Assessment and Plan (1) Leukocytosis Current Visit: Yes Status: Acute Code(s): D72.829 - ELEVATED WHITE BLOOD CELL COUNT, UNSPECIFIED SNOMED Code(s): 996564365 (2) Diabetic foot ulcer associated with type 2 diabetes mellitus, with fat layer exposed Narrative/Plan: 67-year-old female presents to the hospital from the wound healing Center with concerns to them extensive left diabetic foot ulceration involving the great toe. It is time information is given to the patient about the great importance of that toe and how it impacts balance and walking. It is crucial for ambulation and if the toe can be salvaged he can directly impact ambulation which then impacts quality of life. Bone scan is requested to evaluate for underlying bony infection which appears to be occurring. May need some surgical debridement. Antibiotics therapy with Zosyn and vancomycin has begun. Cultures obtained. We'll update her tetanus vaccine, ensure she has adequate protein intake, and a multivitamin. Elevate the foot at rest. 01/18/2018 reveals a patient of had her renal ultrasound without evidence of obstruction given the increased creatinine. Bone scan is positive for osteomyelitis of the left great toe. Has been seen by vascular surgery and likely will have in the next few days the distal toe amputation for the extensive ulceration that is present with the exposed bone. Continue the current antibiotic therapy of Zosyn and vancomycin until we have culture results. Offload the foot. Current Visit: Yes Status: Acute Code(s): E11.621 - TYPE 2 DIABETES MELLITUS WITH FOOT ULCER; L97.502 - NON-PRS CHRONIC ULCER OTH PRT UNSP FOOT W FAT LAYER EXPOSED SNOMED Code(s): 0671225768316
[2018-01-18 23:44] LABS: Appearance,Urine Clear (Clear); Bilirubin,Urine Negative (Negative); Blood,Urine Negative (Negative); Color,Urine Light Yellow; Glucose,Urine (UA) 2+ (Negative); Ketones,Urine Negative (Negative); Leukocyte Esterase,Urine Negative (Negative); Nitrite,Urine Negative (Negative); Protein,Urine Trace (Negative); Specific Gravity,Urine 1.012 (1.001-1.035); Urobilinogen,Urine <2.0 mg/dL (<2.0)
[2018-01-19 03:16] LABS: Glucose,Whole Blood 288 mg/dL (75-99)
[2018-01-19] MEDS: SODIUM CHLORIDE 0.9% 1,000 ML IV SCH ×3 (05:22→21:18)
[2018-01-19] MEDS: PIPERACILLIN-TAZOBACTAM 3.375 GM in DEXTROSE/WATER 1 50ML.BAG IVPB SCH ×3 (05:23→19:56)
[2018-01-19 06:56] LABS: Glucose,Whole Blood 224 mg/dL (75-99)
[2018-01-19 08:18] LABS: Calcium 9.3 mg/dL (8.4-10.2); Phosphorus 3.2 mg/dL (2.5-4.5); Potassium 5.5 mmol/L (3.5-5.1)
[2018-01-19] MEDS: INSULIN ASPART 100 UNIT/ML 1 ML 10 ML VIAL SQ SCH ×4 (08:23→19:54)
[2018-01-19] MEDS: ENOXAPARIN 40 MG/0.4 ML SYRINGE SQ SCH (08:27)
[2018-01-19] MEDS: amLODIPine 5 MG TAB PO SCH ×2 (08:27→20:05)
[2018-01-19 11:48] LABS: Glucose,Whole Blood 306 mg/dL (75-99)
[2018-01-19] MEDS: MULTIVITAMINS, THERA 1 EACH TAB PO SCH (12:24)
[2018-01-19] MEDS: CHOLECALCIFEROL 1,000 UNIT TAB PO SCH (12:24)
[2018-01-19 13:22] VITALS: BMI 34.9
[2018-01-19 17:00] LABS: Glucose,Whole Blood 339 mg/dL (75-99)
--- NOTE | 2018-01-19 17:45 | PN ---
PROGRESS NOTE DATE OF SERVICE: 01/19/2018 PRESENTING COMPLAINT: Left big toe osteomyelitis. INTERVAL HISTORY: This patient with diabetic neuropathy presented with left big toe osteomyelitis. Patient is on IV antibiotics. Did discuss with Dr. Turk from Vascular Surgery. Probably the toe will not be able to be salvaged given the severity, meantime patient is on IV antibiotics antibiotic. REVIEW OF SYSTEMS: Done for constitutional, cardiovascular, GI, pulmonary; relevant findings as above. Patient has no pain. CURRENT MEDICATIONS: Reviewed that include Norvasc 5 mg b.i.d., Lipitor, Levemir 46 units and NovoLog 8 units t.i.d., IV Zosyn. PHYSICAL EXAMINATION: Afebrile, pulse 54, respiratory 18, blood pressure 129/74, pulse ox 99% on room air room. GENERAL APPEARANCE: Sitting in bed, slightly anxious. EYES: Pupils equal, conjunctivae normal. HEENT: External appearance of nose and ears normal. Oral cavity normal. NECK: JVD not raised. Mass not palpable. Respiratory effort normal. Lungs are clear. CARDIOVASCULAR: First and second sounds normal, no edema. ABDOMEN: Soft, nontender. Liver and spleen not palpable. PSYCHIATRY: Alert and oriented x3. Mood and affect normal. EXTREMITIES: Left big toe in a dressing. INVESTIGATIONS: Potassium 5.5, BUN 22, creatinine 1.20. Accu-Cheks noted 224, 306, 339. ASSESSMENT: 1. Acute left big toe osteomyelitis, slow to respond. 2. Hyperkalemia, secondary to renal failure. 3. Essential hypertension with urgency, slow to respond. 4. Sinus bradycardia from patient being on beta blockers. 5. Intermittent asthma, controlled. 6. Diabetes mellitus type 2, chronically on insulin, uncontrolled with hyperglycemia. 7. Peripheral neuropathy secondary to diabetes. 8. Suspect underlying chronic kidney disease, stage IIIA from diabetic nephropathy. PLAN: Will increase patient's Levemir to 52 units at night and increase the NovoLog to 11 units with meals. Will also add hydralazine for blood pressure control. Antibiotics will be coordinated by Dr. Cadena. Will cut back a bit on IV fluids. Prognosis guarded. MMODL / IJN: [id number] /
[2018-01-19] MEDS: hydrALAZINE HCL 50 MG TAB PO SCH ×2 (19:53→20:05)
[2018-01-19] MEDS: ATORVASTATIN 10 MG TAB PO SCH (20:05)
[2018-01-19 20:33] LABS: Glucose,Whole Blood 276 mg/dL (75-99)
[2018-01-19] MEDS: INSULIN DETEMIR 100 UNIT/ML 10 ML VIAL SQ SCH (21:17)
--- NOTE | 2018-01-19 22:27 | P.PN ---
Subjective Progress Note Date: 01/19/18 Principal diagnosis: Diabetic foot ulcer 67-year-old female with a long-standing history of diabetes mellitus type 2 poorly controlled relates to a hemoglobin A1c and a somewhat recent past of 12 that has improved to the about 11 range recently. Best A1c in the last year was nine Patient relates that she noticed over the last several days that the left great toe had begun to swell and a white blistered material forming on the dorsum of the toe. It became swollen and erythematous. 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 She was unaware that there is an ulceration to the plantar surface of the first metatarsal head. Because of the change to the foot she was seen at the wound healing center today. With evidence of the active infection she was admitted to hospital in the infectious diseases consultation was requested. Patient believes that she's probably had a fever and chill but has not taken her temperature. Has not recently taken her blood sugars but expected them to be elevated. She is feeling poorly with fever symptomatically and chills. She however is denying significant headache or visual changes. No chest pains or pressures or shortness of breath. Denies abdominal pains. No nausea or emesis. 01/18/2018 reveals that the patient had evaluation today. Evidence of the fracture of the distal part of the great toe. Ultrasound of kidneys have been performed. Is evaluated by vascular surgery and likely will need it distal toe amputation in the near future. 01/19/2018 reveals the patient to be feeling a bit better today. Her mood is a bit improved now that she has had some time to understand what is occurring. Her is present and is helpful, she understands that a surgical debridement in distal toe amputation will be performed likely on Sunday. That will then help us determine the course of therapy at that time. Objective - Vital Signs Vital signs: Vital Signs Temp 98.9 F 01/19/18 22:21 Pulse 68 01/19/18 22:21 Resp 16 01/19/18 22:21 BP 179/73 01/19/18 22:21 Pulse Ox 96 01/19/18 22:21 Intake & Output 01/19/18 01/19/18 01/20/18 06:59 18:59 06:59 Intake Total 1280 200 250 Balance 1280 200 250 Weight 83.915 kg Intake: IV 250 Piperacillin-Tazobactam 3 50 .375 gm In Dextrose/Water 1 50ml.bag @ 12.5 mls/hr IVPB Q8H PREET Rx#: [id number] Sodium Chloride 0.9% 1, 200 000 ml @ 50 mls/hr IV . Q20H PREET Rx#:[id number] Intake, IV Titration 690 Amount Piperacillin-Tazobactam 3 50 .375 gm In Dextrose/Water 1 50ml.bag @ 12.5 mls/hr IVPB Q8H PREET Rx#: [id number] Sodium Chloride 0.9% 1, 640 000 ml @ 80 mls/hr IV . [id number] PREET Rx#:[id number] Oral 590 200 Other: Voiding Method Toilet Toilet # Voids 2 2 - Exam 67-year-old female presents to Hospital from [facility] where there is notation of the acute infectious process of the left great toe HEENT: Anicteric conjunctiva are pink and moist nasal mucosa grossly intact without significant lesions, there is no thrush. Neck: The neck is supple without significant lymphadenopathy or thyromegaly. Lungs: Good bilateral air entry without significant crackles or wheezing. There is no significant bronchial sounds. There is no egophony or dullness. Heart: Regular rate and rhythm with an audible S1-S2, no S3 no S4. There is no significant murmur click or rub, PMI was nondisplaced. Abdomen: Positive bowel sounds soft and nontender without palpable masses or organomegaly. There was no guarding or rebound. Extremities: The upper extremities have excellent pulses they are symmetric, no significant petechiae or telangiectasia. No splinter hemorrhages were noted. The right lower extremity has no difficulties in that there is no smoking edema , or lesions. The left lower extremity has evidence of some mild generalized swelling to the foot it is greatest at the great toe. Is evidence of a recent bulla that has drained. There is ulcerations the plantar surface of the great toe at the first metatarsal head measuring at 2 x 2 x 0.3 cm with some purulent drainage that has been sent for culture. There is surrounding erythema which distracts the lateral surface of the calf. It is not very tender. There is diminished peripheral pulses but they are palpable. Neuro: Awake alert oriented to person place and time. There are no acute new gross focal sensory motor deficits. However there is bilateral peripheral neuropathy to the feet. - Labs CBC & Chem 7: 01/18/18 06:38 01/19/18 06:57 Labs: Abnormal Lab Results - Last 24 Hours (Table) 01/18/18 01/19/18 01/19/18 Range/Units 23:15 03:14 06:55 Potassium (3.5-5.1) mmol/L Carbon Dioxide (22-30) mmol/L BUN (7-17) mg/dL Creatinine (0.52-1.04) mg/dL Glucose (74-99) mg/dL POC Glucose (mg/dL) 288 H 224 H (75-99) mg/dL Urine Protein Trace H (Negative) Urine Glucose (UA) 2+ H (Negative) 01/19/18 01/19/18 01/19/18 Range/Units 06:57 11:34 16:58 Potassium 5.5 H (3.5-5.1) mmol/L Carbon Dioxide 21 L (22-30) mmol/L BUN 22 H (7-17) mg/dL Creatinine 1.20 H (0.52-1.04) mg/dL Glucose 220 H (74-99) mg/dL POC Glucose (mg/dL) 306 H 339 H (75-99) mg/dL Urine Protein (Negative) Urine Glucose (UA) (Negative) 01/19/18 Range/Units 20:32 Potassium (3.5-5.1) mmol/L Carbon Dioxide (22-30) mmol/L BUN (7-17) mg/dL Creatinine (0.52-1.04) mg/dL Glucose (74-99) mg/dL POC Glucose (mg/dL) 276 H (75-99) mg/dL Urine Protein (Negative) Urine Glucose (UA) (Negative) Microbiology - Last 24 Hours (Table) 01/17/18 12:10 Blood Culture - Preliminary Blood No Growth after 48 hours Laboratory Results WBC 12.6 k/uL (3.8-10.6) H 01/18/18 06:38 RBC 3.69 m/uL (3.80-5.40) L 01/18/18 06:38 Hgb 10.4 gm/dL (11.4-16.0) L 01/18/18 06:38 Hct 33.6 % (34.0-46.0) L 01/18/18 06:38 MCV 91.0 fL (80.0-100.0) 01/18/18 06:38 MCH 28.2 pg (25.0-35.0) 01/18/18 06:38 MCHC 30.9 g/dL (31.0-37.0) L 01/18/18 06:38 RDW 13.7 % (11.5-15.5) 01/18/18 06:38 Plt Count 462 k/uL (150-450) H 01/18/18 06:38 Neutrophils % 56 % 01/18/18 06:38 Lymphocytes % 33 % 01/18/18 06:38 Monocytes % 5 % 01/18/18 06:38 Eosinophils % 3 % 01/18/18 06:38 Basophils % 1 % 01/18/18 06:38 Neutrophils # 7.0 k/uL (1.3-7.7) 01/18/18 06:38 Lymphocytes # 4.1 k/uL (1.0-4.8) 01/18/18 06:38 Monocytes # 0.6 k/uL (0-1.0) 01/18/18 06:38 Eosinophils # 0.4 k/uL (0-0.7) 01/18/18 06:38 Basophils # 0.1 k/uL (0-0.2) 01/18/18 06:38 Sodium 138 mmol/L (137-145) 01/19/18 06:57 Potassium 5.5 mmol/L (3.5-5.1) H 01/19/18 06:57 Chloride 105 mmol/L (98-107) 01/19/18 06:57 Carbon Dioxide 21 mmol/L (22-30) L 01/19/18 06:57 Anion Gap 12 mmol/L 01/19/18 06:57 BUN 22 mg/dL (7-17) H 01/19/18 06:57 Creatinine 1.20 mg/dL (0.52-1.04) H 01/19/18 06:57 Est GFR (CKD-EPI)AfAm 54 (>60 ml/min/1.73 sqM) 01/19/18 06:57 Est GFR (CKD-EPI)NonAf 47 (>60 ml/min/1.73 sqM) 01/19/18 06:57 Glucose 220 mg/dL (74-99) H 01/19/18 06:57 POC Glucose (mg/dL) 276 mg/dL (75-99) H 01/19/18 20:32 POC Glu Prop Sawyer ID Anabella León 01/19/18 20:32 Plasma Lactic Acid Wallace 1.2 mmol/L (0.7-2.0) 01/17/18 12:10 Calcium 9.3 mg/dL (8.4-10.2) 01/19/18 06:57 Phosphorus 3.2 mg/dL (2.5-4.5) 01/19/18 06:57 Magnesium 1.7 mg/dL (1.6-2.3) 01/17/18 12:10 Total Bilirubin 0.4 mg/dL (0.2-1.3) 01/17/18 12:10 AST 27 U/L (14-36) 01/17/18 12:10 ALT 51 U/L (9-52) 01/17/18 12:10 Alkaline Phosphatase 328 U/L (38-126) H 01/17/18 12:10 Total Protein 7.1 g/dL (6.3-8.2) 01/17/18 12:10 Albumin 3.7 g/dL (3.5-5.0) 01/17/18 12:10 Urine Color Light Yellow 01/18/18 23:15 Urine Appearance Clear (Clear) 01/18/18 23:15 Urine pH 7.0 (5.0-8.0) 01/18/18 23:15 Ur Specific Roosevelt 1.012 (1.001-1.035) 01/18/18 23:15 Urine Protein Trace (Negative) H 01/18/18 23:15 Urine Glucose (UA) 2+ (Negative) H 01/18/18 23:15 Urine Ketones Negative (Negative) 01/18/18 23:15 Urine Blood Negative (Negative) 01/18/18 23:15 Urine Nitrite Negative (Negative) 01/18/18 23:15 Urine Bilirubin Negative (Negative) 01/18/18 23:15 Urine Urobilinogen <2.0 mg/dL (<2.0) 01/18/18 23:15 Ur Leukocyte Esterase Negative (Negative) 01/18/18 23:15 Acetone, Qual Negative (Negative) 01/17/18 12:10 Microbiology 01/17/18 12:10 Blood Blood Culture - Preliminary No Growth after 48 hours 01/18/18 02:53 Toe - Left First Gram Stain - Preliminary 01/18/18 02:53 Toe - Left First Wound Culture - Preliminary Assessment and Plan (1) Leukocytosis Current Visit: Yes Status: Acute Code(s): D72.829 - ELEVATED WHITE BLOOD CELL COUNT, UNSPECIFIED SNOMED Code(s): 640828401 (2) Diabetic foot ulcer associated with type 2 diabetes mellitus, with fat layer exposed Narrative/Plan: 67-year-old female presents to the hospital from the wound healing Center with concerns to them extensive left diabetic foot ulceration involving the great toe. It is time information is given to the patient about the great importance of that toe and how it impacts balance and walking. It is crucial for ambulation and if the toe can be salvaged he can directly impact ambulation which then impacts quality of life. Bone scan is requested to evaluate for underlying bony infection which appears to be occurring. May need some surgical debridement. Antibiotics therapy with Zosyn and vancomycin has begun. Cultures obtained. We'll update her tetanus vaccine, ensure she has adequate protein intake, and a multivitamin. Elevate the foot at rest. 01/18/2018 reveals a patient of had her renal ultrasound without evidence of obstruction given the increased creatinine. Bone scan is positive for osteomyelitis of the left great toe. Has been seen by vascular surgery and likely will have in the next few days the distal toe amputation for the extensive ulceration that is present with the exposed bone. Continue the current antibiotic therapy of Zosyn and vancomycin until we have culture results. Offload the foot. 01/19/2018 reveals the patient to be stable. There is evidence of the Omer grade 4 diabetic foot infection and will have amputation of the distal aspect of the great toe, with goal for salvage as much of the metatarsal head as possible to help her with her gait. The patient understands that her blood glucose needs to be improved. If she does not have improved glucose control progressive amputation could occur. The outcome of surgery will determine the course of antibiotic therapy at discharge. Current Visit: Yes Status: Acute Code(s): E11.621 - TYPE 2 DIABETES MELLITUS WITH FOOT ULCER; L97.502 - NON-PRS CHRONIC ULCER OTH PRT UNSP FOOT W FAT LAYER EXPOSED SNOMED Code(s): 4920078021827
[2018-01-20 02:49] LABS: Glucose,Whole Blood 315 mg/dL (75-99)
[2018-01-20] MEDS: PIPERACILLIN-TAZOBACTAM 3.375 GM in DEXTROSE/WATER 1 50ML.BAG IVPB SCH ×3 (04:21→21:19)
[2018-01-20 06:55] LABS: Glucose,Whole Blood 240 mg/dL (75-99)
[2018-01-20] MEDS: hydrALAZINE HCL 50 MG TAB PO SCH ×3 (07:03→21:20)
[2018-01-20] MEDS: amLODIPine 5 MG TAB PO SCH ×2 (07:04→21:20)
[2018-01-20] MEDS: ENOXAPARIN 40 MG/0.4 ML SYRINGE SQ SCH (07:04)
[2018-01-20] MEDS: INSULIN ASPART 100 UNIT/ML 1 ML 10 ML VIAL SQ SCH ×3 (07:41→17:43)
[2018-01-20] MEDS: SODIUM CHLORIDE 0.9% 1,000 ML IV SCH (07:42)
[2018-01-20 08:05] LABS: Calcium 9.6 mg/dL (8.4-10.2); Potassium 5.4 mmol/L (3.5-5.1)
[2018-01-20 11:06] LABS: Glucose,Whole Blood 295 mg/dL (75-99)
--- NOTE | 2018-01-20 12:37 | PN ---
PROGRESS NOTE This is a 67-year-old diabetic female. We were consulted for left foot big toe plantar aspect of the infected foot wound. The patient had culture and sensitivity and under care of Infectious Disease for IV antibiotic. The patient had a x-ray which showed fracture of the distal part of the great toe. We have discussed the case with the patient and we will evaluated the wound and patient will be scheduled for toe amputation. In the meantime we will continue with IV antibiotic. MMODL / IJN: [id number] /
[2018-01-20 17:08] LABS: Glucose,Whole Blood 370 mg/dL (75-99)
[2018-01-20] MEDS: MULTIVITAMINS, THERA 1 EACH TAB PO SCH (17:38)
[2018-01-20 20:02] LABS: Glucose,Whole Blood 282 mg/dL (75-99)
[2018-01-20] MEDS: ATORVASTATIN 10 MG TAB PO SCH (21:21)
[2018-01-20] MEDS: INSULIN DETEMIR 100 UNIT/ML 10 ML VIAL SQ SCH (21:30)
[2018-01-20] MEDS ORDERED: INSULIN DETEMIR 100 UNIT/ML 10 ML VIAL SQ SCH (21:45)
[2018-01-20] MEDS: SODIUM BICARBONATE TAB 650 MG TAB PO SCH (21:52)
[2018-01-20] MEDS: ACETAMINOPHEN TAB 325 MG TAB PO PRN (22:18)
--- NOTE | 2018-01-20 23:43 | PN ---
PROGRESS NOTE DATE OF SERVICE: 01/20/2018 PRESENTING COMPLAINT: Left big toe osteomyelitis. INTERVAL HISTORY: The patient has diabetic neuropathy presented with left big toe osteomyelitis on IV antibiotics. Sugars still uncontrolled. Poor distal sensation. REVIEW OF SYSTEMS: Done for cardiovascular, GI, pulmonary; relevant findings as above. CURRENT MEDICATIONS: Reviewed that include IV Zosyn. PHYSICAL EXAMINATION: Afebrile. Pulse 74, respiratory 18, blood pressure 172/73, repeat 142/65, pulse ox 96% on room air. GENERAL APPEARANCE: Lying in bed, comfortable. EYES: Pupils equal. Conjunctivae are normal. HEENT: External appearance of nose and ears normal. Oral cavity normal. NECK: JVD not raised. Mass not palpable. Respiratory effort ____. Lungs are clear. CARDIOVASCULAR: First and second sounds, no edema. ABDOMEN: Soft, nontender. Liver and spleen not palpable. PSYCHIATRY: Alert and oriented x3. Mood and affect normal. EXTREMITIES: Left big toe wound. INVESTIGATIONS: Potassium 5.4, BUN 21, creatinine 1.10. Accu-Cheks 242, 295, 370, 282. ASSESSMENT: 1. Acute left big toe osteomyelitis, slow to respond. 2. Hyperkalemia secondary to renal failure, slow to respond. 3. Essential hypertension with urgency, slow to respond. 4. Sinus bradycardia from patient being on beta joselyn, now discontinued. 5. Intermittent asthma, controlled. 6. Diabetes mellitus type 2, currently on insulin, uncontrolled with hypoglycemia. 7. Peripheral neuropathy secondary to diabetes. 8. Chronic kidney disease stage 3A from diabetic nephropathy. PLAN: At this point we will increase the patient's Levemir to 60 units at night. The patient does state she takes up to about 18 units of Humalog with meals. We will increase the Humalog to the same dose. The patient's blood pressure medications were adjusted yesterday. We will see how that does, otherwise increase the dose further accordingly. Continue the antibiotics. Did discuss with Dr. Cadena and Dr. Turk. The patient will be going for amputation. Did talk to the patient and family at bedside. Questions were answered. MMFLIPL / YENNIFERN: [id number] /
[2018-01-21 02:00] LABS: Glucose,Whole Blood 332 mg/dL (75-99)
[2018-01-21] MEDS: PIPERACILLIN-TAZOBACTAM 3.375 GM in DEXTROSE/WATER 1 50ML.BAG IVPB SCH ×3 (04:28→19:33)
[2018-01-21 06:54] LABS: Glucose,Whole Blood 263 mg/dL (75-99)
[2018-01-21] MEDS: amLODIPine 5 MG TAB PO SCH ×2 (07:55→21:41)
[2018-01-21] MEDS: hydrALAZINE HCL 50 MG TAB PO SCH ×3 (07:55→21:41)
[2018-01-21] MEDS: ENOXAPARIN 40 MG/0.4 ML SYRINGE SQ SCH (07:55)
[2018-01-21] MEDS: INSULIN ASPART 100 UNIT/ML 1 ML 10 ML VIAL SQ SCH ×3 (07:55→17:16)
[2018-01-21] MEDS: SODIUM BICARBONATE TAB 650 MG TAB PO SCH ×3 (07:55→21:39)
[2018-01-21 08:23] LABS: Calcium 9.8 mg/dL (8.4-10.2); Potassium 4.9 mmol/L (3.5-5.1)
[2018-01-21] MEDS: SODIUM CHLORIDE 0.9% 1,000 ML IV SCH ×2 (10:46→17:12)
[2018-01-21 11:07] LABS: Glucose,Whole Blood 360 mg/dL (75-99)
[2018-01-21] MEDS: MULTIVITAMINS, THERA 1 EACH TAB PO SCH (12:44)
[2018-01-21 17:14] LABS: Glucose,Whole Blood 270 mg/dL (75-99)
[2018-01-21 20:28] LABS: Glucose,Whole Blood 271 mg/dL (75-99)
[2018-01-21] MEDS: INSULIN DETEMIR 100 UNIT/ML 10 ML VIAL SQ SCH (21:41)
[2018-01-21] MEDS: ATORVASTATIN 10 MG TAB PO SCH (21:41)
[2018-01-21] MEDS: ACETAMINOPHEN TAB 325 MG TAB PO PRN (21:47)
--- NOTE | 2018-01-21 22:26 | PN ---
PROGRESS NOTE DATE OF SERVICE: January 21, 2018. PRESENT COMPLAINT: Left big toe osteomyelitis. INTERVAL HISTORY: The patient with diabetic neuropathy presented with left big toe osteomyelitis, on IV antibiotics. Sugars have still remains uncontrolled even though insulin dose is being gradually been increased. The patient has peripheral neuropathy. Patient due for surgery tomorrow for amputation of the toe. at the bedside. REVIEW OF SYSTEMS: Done for constitutional, cardiovascular, GI, pulmonary; relevant findings as above. CURRENT MEDICATIONS: Reviewed that include IV Zosyn. PHYSICAL EXAMINATION: Temperature 97.8, pulse 69, respirations 18, blood pressure 117/ 74, pulse ox 97% on room. General appearance: Lying in bed comfortable. Eyes pupils equal. Conjunctivae normal. HEENT external appearance of nose and ears normal. Oral cavity normal. Neck JVD not raised. Mass not palpable. Respiratory effort normal. Lungs are clear. Cardiovascular 1st and 2nd sounds normal. No edema. ABDOMEN: Soft, nontender. Liver and spleen not palpable. Psychiatry: Alert and oriented times three. Mood and affect normal. Left big toe in a dressing. INVESTIGATIONS: Potassium 4.9, BUN 22, creatinine 1.04. Accu-Cheks are noted, 360, 270. ASSESSMENT: 1. Acute left big toe osteomyelitis, slow to respond. 2. Hyperkalemia secondary to renal failure, improved. 3. Essential hypertension urgency getting better. 4. Sinus bradycardia, patient on beta joselyn, now discontinued. 5. Intermittent asthma. 6. Diabetes mellitus type 2 currently on insulin, uncontrolled with hyperglycemia. 7. Peripheral neuropathy secondary to diabetes. 8. Chronic kidney disease stage IIIA from diabetic nephropathy. PLAN: We will keep the patient on the current dose of insulin as the patient going down for surgery tomorrow. Care was discussed the patient at bedside. The patient's cultures have remained negative. The patient's blood pressure is better controlled. MMODL / IJN: [id number] /
--- NOTE | 2018-01-21 23:15 | P.PN ---
Subjective Progress Note Date: 01/21/18 Principal diagnosis: Diabetic foot ulcer 67-year-old female with a long-standing history of diabetes mellitus type 2 poorly controlled relates to a hemoglobin A1c and a somewhat recent past of 12 that has improved to the about 11 range recently. Best A1c in the last year was nine Patient relates that she noticed over the last several days that the left great toe had begun to swell and a white blistered material forming on the dorsum of the toe. It became swollen and erythematous. 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 She was unaware that there is an ulceration to the plantar surface of the first metatarsal head. Because of the change to the foot she was seen at the wound healing center today. With evidence of the active infection she was admitted to hospital in the infectious diseases consultation was requested. Patient believes that she's probably had a fever and chill but has not taken her temperature. Has not recently taken her blood sugars but expected them to be elevated. She is feeling poorly with fever symptomatically and chills. She however is denying significant headache or visual changes. No chest pains or pressures or shortness of breath. Denies abdominal pains. No nausea or emesis. 01/18/2018 reveals that the patient had evaluation today. Evidence of the fracture of the distal part of the great toe. Ultrasound of kidneys have been performed. Is evaluated by vascular surgery and likely will need it distal toe amputation in the near future. 01/19/2018 reveals the patient to be feeling a bit better today. Her mood is a bit improved now that she has had some time to understand what is occurring. Her is present and is helpful, she understands that a surgical debridement in distal toe amputation will be performed likely on Sunday. That will then help us determine the course of therapy at that time. 01/21/2018 patient has some further improvement. She is in good understanding of the plan for surgery tomorrow for the distal toe amputation for the Omer grade 4 diabetic lower extremity ulceration. Blood sugars are improving. She is not feeling poorly such as fevers or chills. Objective - Vital Signs Vital signs: Vital Signs Temp 98.3 F 01/21/18 23:00 Pulse 85 01/21/18 23:00 Resp 16 01/21/18 23:00 BP 180/74 01/21/18 23:00 Pulse Ox 96 01/21/18 23:00 Intake & Output 01/21/18 01/21/18 01/22/18 06:59 18:59 06:59 Intake Total 450 Balance 450 Intake: IV 450 Piperacillin-Tazobactam 3 50 .375 gm In Dextrose/Water 1 50ml.bag @ 12.5 mls/hr IVPB Q8H PREET Rx#: [id number] Sodium Chloride 0.9% 1, 400 000 ml @ 50 mls/hr IV . Q20H PREET Rx#:[id number] Other: Voiding Method Toilet # Voids 2 - Exam 67-year-old female presents to Hospital from the wound center where there is notation of the acute infectious process of the left great toe HEENT: Anicteric conjunctiva are pink and moist nasal mucosa grossly intact without significant lesions, there is no thrush. Neck: The neck is supple without significant lymphadenopathy or thyromegaly. Lungs: Good bilateral air entry without significant crackles or wheezing. There is no significant bronchial sounds. There is no egophony or dullness. Heart: Regular rate and rhythm with an audible S1-S2, no S3 no S4. There is no significant murmur click or rub, PMI was nondisplaced. Abdomen: Positive bowel sounds soft and nontender without palpable masses or organomegaly. There was no guarding or rebound. Extremities: The upper extremities have excellent pulses they are symmetric, no significant petechiae or telangiectasia. No splinter hemorrhages were noted. The right lower extremity has no difficulties in that there is no smoking edema , or lesions. The left lower extremity has evidence of some mild generalized swelling to the foot it is greatest at the great toe. Is evidence of a recent bulla that has drained. There is ulcerations the plantar surface of the great toe at the first metatarsal head measuring at 2 x 2 x 0.3 cm with some purulent drainage that has been sent for culture. There is surrounding erythema which distracts the lateral surface of the calf. It is not very tender. There is diminished peripheral pulses but they are palpable. Neuro: Awake alert oriented to person place and time. There are no acute new gross focal sensory motor deficits. However there is bilateral peripheral neuropathy to the feet. - Labs CBC & Chem 7: 01/18/18 06:38 01/21/18 07:43 Labs: Abnormal Lab Results - Last 24 Hours (Table) 03/26/18 03/26/18 03/26/18 Range/Units 01:58 06:52 07:43 Carbon Dioxide 20 L (22-30) mmol/L BUN 22 H (7-17) mg/dL Glucose 246 H (74-99) mg/dL POC Glucose (mg/dL) 332 H 263 H (75-99) mg/dL 01/21/18 01/21/18 01/21/18 Range/Units 11:06 17:12 20:02 Carbon Dioxide (22-30) mmol/L BUN (7-17) mg/dL Glucose (74-99) mg/dL POC Glucose (mg/dL) 360 H 270 H 271 H (75-99) mg/dL Microbiology - Last 24 Hours (Table) 01/17/18 12:10 Blood Culture - Preliminary Blood No Growth after 96 hours Laboratory Results WBC 12.6 k/uL (3.8-10.6) H 01/18/18 06:38 RBC 3.69 m/uL (3.80-5.40) L 01/18/18 06:38 Hgb 10.4 gm/dL (11.4-16.0) L 01/18/18 06:38 Hct 33.6 % (34.0-46.0) L 01/18/18 06:38 MCV 91.0 fL (80.0-100.0) 01/18/18 06:38 MCH 28.2 pg (25.0-35.0) 01/18/18 06:38 MCHC 30.9 g/dL (31.0-37.0) L 01/18/18 06:38 RDW 13.7 % (11.5-15.5) 01/18/18 06:38 Plt Count 462 k/uL (150-450) H 01/18/18 06:38 Neutrophils % 56 % 01/18/18 06:38 Lymphocytes % 33 % 01/18/18 06:38 Monocytes % 5 % 01/18/18 06:38 Eosinophils % 3 % 01/18/18 06:38 Basophils % 1 % 01/18/18 06:38 Neutrophils # 7.0 k/uL (1.3-7.7) 01/18/18 06:38 Lymphocytes # 4.1 k/uL (1.0-4.8) 01/18/18 06:38 Monocytes # 0.6 k/uL (0-1.0) 01/18/18 06:38 Eosinophils # 0.4 k/uL (0-0.7) 01/18/18 06:38 Basophils # 0.1 k/uL (0-0.2) 01/18/18 06:38 Sodium 140 mmol/L (137-145) 01/21/18 07:43 Potassium 4.9 mmol/L (3.5-5.1) 01/21/18 07:43 Chloride 104 mmol/L (98-107) 01/21/18 07:43 Carbon Dioxide 20 mmol/L (22-30) L 01/21/18 07:43 Anion Gap 16 mmol/L 01/21/18 07:43 BUN 22 mg/dL (7-17) H 01/21/18 07:43 Creatinine 1.04 mg/dL (0.52-1.04) 01/21/18 07:43 Est GFR (CKD-EPI)AfAm 64 (>60 ml/min/1.73 sqM) 01/21/18 07:43 Est GFR (CKD-EPI)NonAf 56 (>60 ml/min/1.73 sqM) 01/21/18 07:43 Glucose 246 mg/dL (74-99) H 01/21/18 07:43 POC Glucose (mg/dL) 271 mg/dL (75-99) H 01/21/18 20:02 POC Glu Lumber Grader ID Yoana Starks 01/21/18 20:02 Plasma Lactic Acid Wallace 1.2 mmol/L (0.7-2.0) 01/17/18 12:10 Calcium 9.8 mg/dL (8.4-10.2) 01/21/18 07:43 Phosphorus 3.2 mg/dL (2.5-4.5) 01/19/18 06:57 Magnesium 1.7 mg/dL (1.6-2.3) 01/17/18 12:10 Total Bilirubin 0.4 mg/dL (0.2-1.3) 01/17/18 12:10 AST 27 U/L (14-36) 01/17/18 12:10 ALT 51 U/L (9-52) 01/17/18 12:10 Alkaline Phosphatase 328 U/L (38-126) H 01/17/18 12:10 Total Protein 7.1 g/dL (6.3-8.2) 01/17/18 12:10 Albumin 3.7 g/dL (3.5-5.0) 01/17/18 12:10 PTH Intact 56.6 pg/mL (14.0-72.0) 01/19/18 06:57 Urine Color Light Yellow 01/18/18 23:15 Urine Appearance Clear (Clear) 01/18/18 23:15 Urine pH 7.0 (5.0-8.0) 01/18/18 23:15 Ur Specific Seltzer 1.012 (1.001-1.035) 01/18/18 23:15 Urine Protein Trace (Negative) H 01/18/18 23:15 Urine Glucose (UA) 2+ (Negative) H 01/18/18 23:15 Urine Ketones Negative (Negative) 01/18/18 23:15 Urine Blood Negative (Negative) 01/18/18 23:15 Urine Nitrite Negative (Negative) 01/18/18 23:15 Urine Bilirubin Negative (Negative) 01/18/18 23:15 Urine Urobilinogen <2.0 mg/dL (<2.0) 01/18/18 23:15 Ur Leukocyte Esterase Negative (Negative) 01/18/18 23:15 Acetone, Qual Negative (Negative) 01/17/18 12:10 Microbiology 01/17/18 12:10 Blood Blood Culture - Preliminary No Growth after 96 hours 01/18/18 02:53 Toe - Left First Gram Stain - Final 01/18/18 02:53 Toe - Left First Wound Culture - Final Assessment and Plan (1) Leukocytosis Current Visit: Yes Status: Acute Code(s): D72.829 - ELEVATED WHITE BLOOD CELL COUNT, UNSPECIFIED SNOMED Code(s): 332393381 (2) Diabetic foot ulcer associated with type 2 diabetes mellitus, with fat layer exposed Narrative/Plan: 67-year-old female presents to the hospital from the wound healing Center with concerns to them extensive left diabetic foot ulceration involving the great toe. It is time information is given to the patient about the great importance of that toe and how it impacts balance and walking. It is crucial for ambulation and if the toe can be salvaged he can directly impact ambulation which then impacts quality of life. Bone scan is requested to evaluate for underlying bony infection which appears to be occurring. May need some surgical debridement. Antibiotics therapy with Zosyn and vancomycin has begun. Cultures obtained. We'll update her tetanus vaccine, ensure she has adequate protein intake, and a multivitamin. Elevate the foot at rest. 01/18/2018 reveals a patient of had her renal ultrasound without evidence of obstruction given the increased creatinine. Bone scan is positive for osteomyelitis of the left great toe. Has been seen by vascular surgery and likely will have in the next few days the distal toe amputation for the extensive ulceration that is present with the exposed bone. Continue the current antibiotic therapy of Zosyn and vancomycin until we have culture results. Offload the foot. 01/19/2018 reveals the patient to be stable. There is evidence of the Omer grade 4 diabetic foot infection and will have amputation of the distal aspect of the great toe, with goal for salvage as much of the metatarsal head as possible to help her with her gait. The patient understands that her blood glucose needs to be improved. If she does not have improved glucose control progressive amputation could occur. The outcome of surgery will determine the course of antibiotic therapy at discharge. 01/21/2018 the patient is doing relatively well on current antibiotic therapy of Zosyn and vancomycin. Cultures are in progress. She does have a Omer grade 4 diabetic looks really ulceration of the left great toe and will be taken to the operating room tomorrow for debridement and amputation, hopefully saving the metatarsal head to maintain her ability to ambulate. The outcome of surgery will determine the course of outpatient antibiotic therapy. The leukocytosis is showing some improvement with current antibiotic therapy and attempts for improved glucose control. Current Visit: Yes Status: Acute Code(s): E11.621 - TYPE 2 DIABETES MELLITUS WITH FOOT ULCER; L97.502 - NON-PRS CHRONIC ULCER OTH PRT UNSP FOOT W FAT LAYER EXPOSED SNOMED Code(s): 0739174394383
[2018-01-22 03:34] LABS: Glucose,Whole Blood 286 mg/dL (75-99)
[2018-01-22] MEDS: PIPERACILLIN-TAZOBACTAM 3.375 GM in DEXTROSE/WATER 1 50ML.BAG IVPB SCH ×4 (03:49→19:38)
[2018-01-22 06:48] LABS: Glucose,Whole Blood 240 mg/dL (75-99)
[2018-01-22] MEDS: ACETAMINOPHEN TAB 325 MG TAB PO PRN ×2 (07:54→21:57)
[2018-01-22] MEDS: ENOXAPARIN 40 MG/0.4 ML SYRINGE SQ SCH (07:56)
[2018-01-22] MEDS: amLODIPine 5 MG TAB PO SCH ×2 (07:57→21:58)
[2018-01-22] MEDS: SODIUM BICARBONATE TAB 650 MG TAB PO SCH ×3 (07:57→21:58)
[2018-01-22] MEDS: hydrALAZINE HCL 50 MG TAB PO SCH ×3 (07:57→21:58)
[2018-01-22] MEDS: MULTIVITAMINS, THERA 1 EACH TAB PO SCH (07:58)
[2018-01-22 08:29] LABS: Calcium 9.5 mg/dL (8.4-10.2); Potassium 4.9 mmol/L (3.5-5.1)
[2018-01-22] MEDS: INSULIN ASPART 100 UNIT/ML 1 ML 10 ML VIAL SQ SCH ×3 (08:31→17:58)
[2018-01-22 11:28] LABS: Glucose,Whole Blood 163 mg/dL (75-99)
[2018-01-22] MEDS: IV FLUID CONTINUATION 375 ML IV ONE ×3 (12:21→14:44)
[2018-01-22] MEDS ORDERED: ONDANSETRON 4 MG/2 ML VIAL IVP ONE (12:30)
[2018-01-22] MEDS: LACTATED RINGERS 1,000 ML IV ONE ×2 (13:16→14:45)
[2018-01-22] MEDS ORDERED: MIDAZOLAM 2 MG/2 ML VIAL ONE (13:19)
[2018-01-22] MEDS ORDERED: LIDOCAINE 1% INJ 10MG/ML (20 ML MDV) ONE (13:19)
[2018-01-22] MEDS ORDERED: fentaNYL (PF) 50 MCG/ML 2 ML AMP ONE (13:19)
[2018-01-22] MEDS ORDERED: PROPOFOL 10 MG/ML 20 ML VIAL IV ONE (13:19)
[2018-01-22] MEDS ORDERED: LIDOCAINE 1% INJ 10MG/ML (20 ML MDV) SQ ONE ×3 (13:30)
[2018-01-22] MEDS ORDERED: LACTATED RINGERS 1,000 ML IV ONE (13:30)
[2018-01-22] MEDS ORDERED: SODIUM CHLORIDE 0.9% 1,000 ML IV ONE (14:09)
[2018-01-22 14:52] LABS: Glucose,Whole Blood 110 mg/dL (75-99)
--- NOTE | 2018-01-22 15:16 | PN ---
PROGRESS NOTE DATE OF SERVICE: 01/22/18. PRESENT COMPLAINT: Left big toe osteomyelitis. INTERVAL HISTORY: This patient with severe diabetic nephropathy and uncontrolled diabetes, presented with left big toe osteomyelitis due for amputation today. Family at the bedside. Pain control. No new issues. REVIEW OF SYSTEMS: Done for constitutional, cardiovascular, GI, pulmonary; relevant findings as above. CURRENT MEDICATIONS: Reviewed that include IV Zosyn. PHYSICAL EXAMINATION: Temperature 97.2, pulse 67, respirations 16, blood pressure 113/63, pulse 94% on room air. GENERAL APPEARANCE: Sitting up, comfortable. EYES: Pupils equal. Conjunctivae normal. HEENT: External appearance of nose and ears normal. Oral cavity normal. NECK: JVD not raised. Mass not palpable. RESPIRATORY: Effort normal, lungs are clear. CARDIOVASCULAR: First and second sounds, no edema. ABDOMEN: Soft, nontender. Liver and spleen not palpable. PSYCHIATRY: Alert and oriented x3. Mood and affect are normal. EXTREMITIES: Left small toe in a dressing. INVESTIGATIONS: BUN 26, creatinine 1.10. Accu-Cheks noted 240, 163. ASSESSMENT: 1. Acute left big toe osteomyelitis, slow to respond. 2. Hyperkalemia secondary to renal failure, improved. 3. Essential hypertension with urgency, better controlled. 4. Sinus bradycardia from beta joselyn now discontinued. 5. Intermittent asthma. 6. Diabetes mellitus type 2, currently on insulin, uncontrolled with hyperglycemia. 7. Peripheral neuropathy secondary to diabetes. 8. Chronic kidney disease, stage IIIA from diabetic nephropathy. PLAN: Care was discussed with the patient and family at the bedside. Await amputation today. Follow. MMODL / IJN: [id number] /
[2018-01-22] MEDS: SODIUM CHLORIDE 0.9% 1,000 ML IV SCH ×2 (16:19→16:20)
--- NOTE | 2018-01-22 16:46 | OP ---
OPERATIVE REPORT PREOP DIAGNOSIS: Infected wound, left foot big toe, Omer grade 4. OPERATION: Left big toe amputation. DESCRIPTION OF PROCEDURE: Patient was brought to the operating room. This patient has a wound on his left big toe plantar aspect down to the tendons and also there was a opening between the big toe and the 2nd toe. Patient has a fracture of the phalanx. An elliptical incision was made on the dorsal aspect of the foot, went circumferentially around the big toe and on the plantar aspect. This incision was deepened and tendons were divided and until we reached the proximal phalanx and using bone cutter we divided the proximal phalanx. Head of the metatarsal were saved and there was some necrotic tissue on the plantar aspect which was also excised along the incision line. Tendons were divided. There was some bleeding points which were controlled by suture ligature. The wound was copiously irrigated with hydrogen peroxide and saline and fascia was approximated with 3-0 Vicryl and skin was closed with 3-0 nylon interrupted suture. Dressing applied. The patient tolerated the procedure well and transferred to recovery room in satisfactory condition. Thank you. JAMISON / IJN: [id number] /
[2018-01-22 17:01] LABS: Glucose,Whole Blood 210 mg/dL (75-99)
[2018-01-22 20:49] LABS: Glucose,Whole Blood 278 mg/dL (75-99)
[2018-01-22] MEDS: ATORVASTATIN 10 MG TAB PO SCH (21:58)
[2018-01-22] MEDS: INSULIN DETEMIR 100 UNIT/ML 10 ML VIAL SQ SCH (21:58)
--- NOTE | 2018-01-23 00:02 | P.PN ---
Subjective Progress Note Date: 01/22/18 Principal diagnosis: Diabetic foot ulcer 67-year-old female with a long-standing history of diabetes mellitus type 2 poorly controlled relates to a hemoglobin A1c and a somewhat recent past of 12 that has improved to the about 11 range recently. Best A1c in the last year was nine Patient relates that she noticed over the last several days that the left great toe had begun to swell and a white blistered material forming on the dorsum of the toe. It became swollen and erythematous. 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 She was unaware that there is an ulceration to the plantar surface of the first metatarsal head. Because of the change to the foot she was seen at the wound healing center today. With evidence of the active infection she was admitted to hospital in the infectious diseases consultation was requested. Patient believes that she's probably had a fever and chill but has not taken her temperature. Has not recently taken her blood sugars but expected them to be elevated. She is feeling poorly with fever symptomatically and chills. She however is denying significant headache or visual changes. No chest pains or pressures or shortness of breath. Denies abdominal pains. No nausea or emesis. 01/18/2018 reveals that the patient had evaluation today. Evidence of the fracture of the distal part of the great toe. Ultrasound of kidneys have been performed. Is evaluated by vascular surgery and likely will need it distal toe amputation in the near future. 01/19/2018 reveals the patient to be feeling a bit better today. Her mood is a bit improved now that she has had some time to understand what is occurring. Her is present and is helpful, she understands that a surgical debridement in distal toe amputation will be performed likely on Sunday. That will then help us determine the course of therapy at that time. 01/21/2018 patient has some further improvement. She is in good understanding of the plan for surgery tomorrow for the distal toe amputation for the Omer grade 4 diabetic lower extremity ulceration. Blood sugars are improving. She is not feeling poorly such as fevers or chills. 01/22/2018 patient has some further improvement. She did have the surgical amputation of the distal aspect of the left great toe with salvage of the metatarsal head. Apparently she's having no acute difficulties and surgical dressing is in place and is not to be removed today. She denies fevers or chills but sugars are improving she's anxious about the debridement and amputation that is doing well. Objective - Vital Signs Vital signs: Vital Signs Temp 97.7 F 01/22/18 23:00 Pulse 103 H 01/22/18 23:00 Resp 16 01/22/18 23:00 BP 135/66 01/22/18 23:00 Pulse Ox 96 01/22/18 23:00 Intake & Output 01/22/18 01/22/18 01/23/18 06:59 18:59 06:59 Intake Total 70 1075 50 Output Total 5 Balance 70 1070 50 Intake: IV 70 1075 50 Piperacillin-Tazobactam 3 50 .375 gm In Dextrose/Water 1 50ml.bag @ 12.5 mls/hr IVPB Q8H PREET Rx#: [id number] Sodium Chloride 0.9% 1, 70 400 000 ml @ 50 mls/hr IV . Q20H PREET Rx#:[id number] Output: Estimated Blood Loss 5 Other: Voiding Method Toilet Toilet # Voids 1 1 - Exam 67-year-old female presents to Hospital from the wound center where there is notation of the acute infectious process of the left great toe HEENT: Anicteric conjunctiva are pink and moist nasal mucosa grossly intact without significant lesions, there is no thrush. Neck: The neck is supple without significant lymphadenopathy or thyromegaly. Lungs: Good bilateral air entry without significant crackles or wheezing. There is no significant bronchial sounds. There is no egophony or dullness. Heart: Regular rate and rhythm with an audible S1-S2, no S3 no S4. There is no significant murmur click or rub, PMI was nondisplaced. Abdomen: Positive bowel sounds soft and nontender without palpable masses or organomegaly. There was no guarding or rebound. Extremities: The upper extremities have excellent pulses they are symmetric, no significant petechiae or telangiectasia. No splinter hemorrhages were noted. The right lower extremity has no difficulties in that there is no smoking edema , or lesions. The left lower extremity has evidence of some mild generalized swelling to the foot . The distal toe amputation is occurred with salvage of the metatarsal head to the left foot at this time. The swelling is improving as is the generalized erythema. Neuro: Awake alert oriented to person place and time. There are no acute new gross focal sensory motor deficits. However there is bilateral peripheral neuropathy to the feet. - Labs CBC & Chem 7: 01/18/18 06:38 01/22/18 07:40 Labs: Abnormal Lab Results - Last 24 Hours (Table) 01/22/18 01/22/18 01/22/18 Range/Units 03:13 06:46 07:40 BUN 26 H (7-17) mg/dL Creatinine 1.10 H (0.52-1.04) mg/dL Glucose 231 H (74-99) mg/dL POC Glucose (mg/dL) 286 H 240 H (75-99) mg/dL 01/22/18 01/22/18 01/22/18 Range/Units 11:07 14:50 16:59 BUN (7-17) mg/dL Creatinine (0.52-1.04) mg/dL Glucose (74-99) mg/dL POC Glucose (mg/dL) 163 H 110 H 210 H (75-99) mg/dL 01/22/18 Range/Units 20:44 BUN (7-17) mg/dL Creatinine (0.52-1.04) mg/dL Glucose (74-99) mg/dL POC Glucose (mg/dL) 278 H (75-99) mg/dL Microbiology - Last 24 Hours (Table) 01/17/18 12:10 Blood Culture - Preliminary Blood No Growth after 120 hours Laboratory Results WBC 12.6 k/uL (3.8-10.6) H 01/18/18 06:38 RBC 3.69 m/uL (3.80-5.40) L 01/18/18 06:38 Hgb 10.4 gm/dL (11.4-16.0) L 01/18/18 06:38 Hct 33.6 % (34.0-46.0) L 01/18/18 06:38 MCV 91.0 fL (80.0-100.0) 01/18/18 06:38 MCH 28.2 pg (25.0-35.0) 01/18/18 06:38 MCHC 30.9 g/dL (31.0-37.0) L 01/18/18 06:38 RDW 13.7 % (11.5-15.5) 01/18/18 06:38 Plt Count 462 k/uL (150-450) H 01/18/18 06:38 Neutrophils % 56 % 01/18/18 06:38 Lymphocytes % 33 % 01/18/18 06:38 Monocytes % 5 % 01/18/18 06:38 Eosinophils % 3 % 01/18/18 06:38 Basophils % 1 % 01/18/18 06:38 Neutrophils # 7.0 k/uL (1.3-7.7) 01/18/18 06:38 Lymphocytes # 4.1 k/uL (1.0-4.8) 01/18/18 06:38 Monocytes # 0.6 k/uL (0-1.0) 01/18/18 06:38 Eosinophils # 0.4 k/uL (0-0.7) 01/18/18 06:38 Basophils # 0.1 k/uL (0-0.2) 01/18/18 06:38 Sodium 138 mmol/L (137-145) 01/22/18 07:40 Potassium 4.9 mmol/L (3.5-5.1) 01/22/18 07:40 Chloride 104 mmol/L (98-107) 01/22/18 07:40 Carbon Dioxide 22 mmol/L (22-30) 01/22/18 07:40 Anion Gap 12 mmol/L 01/22/18 07:40 BUN 26 mg/dL (7-17) H 01/22/18 07:40 Creatinine 1.10 mg/dL (0.52-1.04) H 01/22/18 07:40 Est GFR (CKD-EPI)AfAm 60 (>60 ml/min/1.73 sqM) 01/22/18 07:40 Est GFR (CKD-EPI)NonAf 52 (>60 ml/min/1.73 sqM) 01/22/18 07:40 Glucose 231 mg/dL (74-99) H 01/22/18 07:40 POC Glucose (mg/dL) 278 mg/dL (75-99) H 01/22/18 20:44 POC Glu Cooler Worker ID Yoana Starks 01/22/18 20:44 Plasma Lactic Acid Wallace 1.2 mmol/L (0.7-2.0) 01/17/18 12:10 Calcium 9.5 mg/dL (8.4-10.2) 01/22/18 07:40 Phosphorus 3.2 mg/dL (2.5-4.5) 01/19/18 06:57 Magnesium 1.7 mg/dL (1.6-2.3) 01/17/18 12:10 Total Bilirubin 0.4 mg/dL (0.2-1.3) 01/17/18 12:10 AST 27 U/L (14-36) 01/17/18 12:10 ALT 51 U/L (9-52) 01/17/18 12:10 Alkaline Phosphatase 328 U/L (38-126) H 01/17/18 12:10 Total Protein 7.1 g/dL (6.3-8.2) 01/17/18 12:10 Albumin 3.7 g/dL (3.5-5.0) 01/17/18 12:10 PTH Intact 56.6 pg/mL (14.0-72.0) 01/19/18 06:57 Urine Color Light Yellow 01/18/18 23:15 Urine Appearance Clear (Clear) 01/18/18 23:15 Urine pH 7.0 (5.0-8.0) 01/18/18 23:15 Ur Specific [place] 1.012 (1.001-1.035) 01/18/18 23:15 Urine Protein Trace (Negative) H 01/18/18 23:15 Urine Glucose (UA) 2+ (Negative) H 01/18/18 23:15 Urine Ketones Negative (Negative) 01/18/18 23:15 Urine Blood Negative (Negative) 01/18/18 23:15 Urine Nitrite Negative (Negative) 01/18/18 23:15 Urine Bilirubin Negative (Negative) 01/18/18 23:15 Urine Urobilinogen <2.0 mg/dL (<2.0) 01/18/18 23:15 Ur Leukocyte Esterase Negative (Negative) 01/18/18 23:15 Acetone, Qual Negative (Negative) 01/17/18 12:10 Microbiology 01/17/18 12:10 Blood Blood Culture - Preliminary No Growth after 120 hours 01/18/18 02:53 Toe - Left First Gram Stain - Final 01/18/18 02:53 Toe - Left First Wound Culture - Final Assessment and Plan (1) Leukocytosis Current Visit: Yes Status: Acute Code(s): D72.829 - ELEVATED WHITE BLOOD CELL COUNT, UNSPECIFIED SNOMED Code(s): 167237470 (2) Diabetic foot ulcer associated with type 2 diabetes mellitus, with fat layer exposed Narrative/Plan: 67-year-old female presents to the hospital from the wound healing Center with concerns to them extensive left diabetic foot ulceration involving the great toe. It is time information is given to the patient about the great importance of that toe and how it impacts balance and walking. It is crucial for ambulation and if the toe can be salvaged he can directly impact ambulation which then impacts quality of life. Bone scan is requested to evaluate for underlying bony infection which appears to be occurring. May need some surgical debridement. Antibiotics therapy with Zosyn and vancomycin has begun. Cultures obtained. We'll update her tetanus vaccine, ensure she has adequate protein intake, and a multivitamin. Elevate the foot at rest. 01/18/2018 reveals a patient of had her renal ultrasound without evidence of obstruction given the increased creatinine. Bone scan is positive for osteomyelitis of the left great toe. Has been seen by vascular surgery and likely will have in the next few days the distal toe amputation for the extensive ulceration that is present with the exposed bone. Continue the current antibiotic therapy of Zosyn and vancomycin until we have culture results. Offload the foot. 01/19/2018 reveals the patient to be stable. There is evidence of the Omer grade 4 diabetic foot infection and will have amputation of the distal aspect of the great toe, with goal for salvage as much of the metatarsal head as possible to help her with her gait. The patient understands that her blood glucose needs to be improved. If she does not have improved glucose control progressive amputation could occur. The outcome of surgery will determine the course of antibiotic therapy at discharge. 01/21/2018 the patient is doing relatively well on current antibiotic therapy of Zosyn and vancomycin. Cultures are in progress. She does have a Omer grade 4 diabetic looks really ulceration of the left great toe and will be taken to the operating room tomorrow for debridement and amputation, hopefully saving the metatarsal head to maintain her ability to ambulate. The outcome of surgery will determine the course of outpatient antibiotic therapy. The leukocytosis is showing some improvement with current antibiotic therapy and attempts for improved glucose control. 01/22/2018 reveals the patient to now be postoperative the distal toe amputation of the left great toe was salvage the metatarsal head. Local wound care as per surgery at this point in time. Antibiotic therapy continues with Zosyn and vancomycin for now. The operative room findings and cultures will determine the course of antibiotic therapy at discharge whether it will be intravenous or oral Current Visit: Yes Status: Acute Code(s): E11.621 - TYPE 2 DIABETES MELLITUS WITH FOOT ULCER; L97.502 - NON-PRS CHRONIC ULCER OTH PRT UNSP FOOT W FAT LAYER EXPOSED SNOMED Code(s): 2468248688315
[2018-01-23 02:41] LABS: Glucose,Whole Blood 247 mg/dL (75-99)
[2018-01-23] MEDS: PIPERACILLIN-TAZOBACTAM 3.375 GM in DEXTROSE/WATER 1 50ML.BAG IVPB SCH ×3 (04:35→21:08)
[2018-01-23 07:04] LABS: Glucose,Whole Blood 207 mg/dL (75-99)
[2018-01-23] MEDS: INSULIN ASPART 100 UNIT/ML 1 ML 10 ML VIAL SQ SCH ×3 (08:04→17:33)
[2018-01-23] MEDS: ACETAMINOPHEN TAB 325 MG TAB PO PRN ×2 (08:05→20:54)
[2018-01-23] MEDS: ENOXAPARIN 40 MG/0.4 ML SYRINGE SQ SCH (08:10)
[2018-01-23] MEDS: amLODIPine 5 MG TAB PO SCH ×2 (08:11→20:53)
[2018-01-23] MEDS: hydrALAZINE HCL 50 MG TAB PO SCH ×3 (08:11→20:53)
[2018-01-23] MEDS: SODIUM BICARBONATE TAB 650 MG TAB PO SCH ×3 (08:11→20:53)
[2018-01-23] MEDS: MULTIVITAMINS, THERA 1 EACH TAB PO SCH (08:11)
[2018-01-23 11:38] LABS: Glucose,Whole Blood 152 mg/dL (75-99)
[2018-01-23 17:30] LABS: Glucose,Whole Blood 171 mg/dL (75-99)
--- NOTE | 2018-01-23 18:53 | PN ---
PROGRESS NOTE DATE OF SERVICE: 01/23/2018 PRESENT COMPLAINT: Left big toe amputation. INTERVAL HISTORY: This patient presented with left big toe osteomyelitis confirmed on the pathology, status post amputation. Pain is controlled. at the bedside. No nausea, vomiting, tolerating a diet. The patient also has uncontrolled diabetes and uncontrolled blood pressure. REVIEW OF SYSTEMS: Done for constitutional, cardiovascular, GI, pulmonary; relevant findings as above. CURRENT MEDICATIONS: Reviewed that include IV Zosyn. EXAMINATION: Afebrile, pulse 77, respirations 16, blood pressure 152/69, pulse ox 93% on room air. GENERAL APPEARANCE: Sitting up, comfortable. EYES: Pupils equal. Conjunctivae normal. HEENT: External nose and ears normal. Oral cavity normal. NECK: JVD not raised. Mass not palpable. RESPIRATORY: Effort normal. Lungs are clear. CARDIOVASCULAR: First and second sounds normal. No edema. ABDOMEN: Soft, nontender. Liver, spleen not palpable. PSYCHIATRY: Alert and oriented x3. Mood and affect normal. INVESTIGATIONS: The patient's cultures sent from the wound center showed Stenotrophomonas maltophilia. Accu-Cheks today are 207, 152, 171. ASSESSMENT: Acute continue current medication and treatment plan. Hopefully can get oral antibiotics. Will discuss with Dr. Cadena. MMODL / IJN: [id number] /
[2018-01-23 20:13] LABS: Glucose,Whole Blood 210 mg/dL (75-99)
[2018-01-23] MEDS: INSULIN DETEMIR 100 UNIT/ML 10 ML VIAL SQ SCH (20:52)
[2018-01-23] MEDS: ATORVASTATIN 10 MG TAB PO SCH (21:04)
--- NOTE | 2018-01-23 23:41 | P.PN ---
Subjective Progress Note Date: 01/23/18 Principal diagnosis: Diabetic foot ulcer 67-year-old female with a long-standing history of diabetes mellitus type 2 poorly controlled relates to a hemoglobin A1c and a somewhat recent past of 12 that has improved to the about 11 range recently. Best A1c in the last year was nine Patient relates that she noticed over the last several days that the left great toe had begun to swell and a white blistered material forming on the dorsum of the toe. It became swollen and erythematous. 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 She was unaware that there is an ulceration to the plantar surface of the first metatarsal head. Because of the change to the foot she was seen at the wound healing center today. With evidence of the active infection she was admitted to hospital in the infectious diseases consultation was requested. Patient believes that she's probably had a fever and chill but has not taken her temperature. Has not recently taken her blood sugars but expected them to be elevated. She is feeling poorly with fever symptomatically and chills. She however is denying significant headache or visual changes. No chest pains or pressures or shortness of breath. Denies abdominal pains. No nausea or emesis. 01/18/2018 reveals that the patient had evaluation today. Evidence of the fracture of the distal part of the great toe. Ultrasound of kidneys have been performed. Is evaluated by vascular surgery and likely will need it distal toe amputation in the near future. 01/19/2018 reveals the patient to be feeling a bit better today. Her mood is a bit improved now that she has had some time to understand what is occurring. Her is present and is helpful, she understands that a surgical debridement in distal toe amputation will be performed likely on Sunday. That will then help us determine the course of therapy at that time. 01/21/2018 patient has some further improvement. She is in good understanding of the plan for surgery tomorrow for the distal toe amputation for the Omer grade 4 diabetic lower extremity ulceration. Blood sugars are improving. She is not feeling poorly such as fevers or chills. 01/22/2018 patient has some further improvement. She did have the surgical amputation of the distal aspect of the left great toe with salvage of the metatarsal head. Apparently she's having no acute difficulties and surgical dressing is in place and is not to be removed today. She denies fevers or chills but sugars are improving she's anxious about the debridement and amputation that is doing well. 01/23/2018 reveals the patient to have further improvement. She is not having significant pain, blood sugars are improving but still slightly problematic. Objective - Vital Signs Vital signs: Vital Signs Temp 99.6 F 01/23/18 21:14 Pulse 101 H 01/23/18 21:14 Resp 20 01/23/18 21:14 BP 159/73 01/23/18 21:14 Pulse Ox 93 L 01/23/18 21:14 Intake & Output 01/23/18 01/23/18 01/24/18 06:59 18:59 06:59 Intake Total 300 1500 Balance 300 1500 Intake: IV 300 Piperacillin-Tazobactam 3 100 .375 gm In Dextrose/Water 1 50ml.bag @ 12.5 mls/hr IVPB Q8H PREET Rx#: [id number] Sodium Chloride 0.9% 1, 200 000 ml @ 50 mls/hr IV . Q20H PREET Rx#:[id number] Oral 1500 Other: Voiding Method Toilet Toilet # Voids 1 2 - Exam 67-year-old female presents to Hospital from the wound center where there is notation of the acute infectious process of the left great toe HEENT: Anicteric conjunctiva are pink and moist nasal mucosa grossly intact without significant lesions, there is no thrush. Neck: The neck is supple without significant lymphadenopathy or thyromegaly. Lungs: Good bilateral air entry without significant crackles or wheezing. There is no significant bronchial sounds. There is no egophony or dullness. Heart: Regular rate and rhythm with an audible S1-S2, no S3 no S4. There is no significant murmur click or rub, PMI was nondisplaced. Abdomen: Positive bowel sounds soft and nontender without palpable masses or organomegaly. There was no guarding or rebound. Extremities: The upper extremities have excellent pulses they are symmetric, no significant petechiae or telangiectasia. No splinter hemorrhages were noted. The right lower extremity has no difficulties in that there is no smoking edema , or lesions. The left lower extremity has evidence of some mild generalized swelling to the foot . The distal toe amputation has occurred with salvage of the metatarsal head to the left foot at this time. The swelling is improving as is the generalized erythema. Neuro: Awake alert oriented to person place and time. There are no acute new gross focal sensory motor deficits. However there is bilateral peripheral neuropathy to the feet. - Labs CBC & Chem 7: 01/18/18 06:38 01/22/18 07:40 Labs: Abnormal Lab Results - Last 24 Hours (Table) 01/23/18 01/23/18 01/23/18 Range/Units 02:38 06:59 11:36 POC Glucose (mg/dL) 247 H 207 H 152 H (75-99) mg/dL 01/23/18 01/23/18 Range/Units 17:19 20:11 POC Glucose (mg/dL) 171 H 210 H (75-99) mg/dL Microbiology - Last 24 Hours (Table) 01/17/18 12:10 Blood Culture - Final Blood No Growth after 144 hours Laboratory Results WBC 12.6 k/uL (3.8-10.6) H 01/18/18 06:38 RBC 3.69 m/uL (3.80-5.40) L 01/18/18 06:38 Hgb 10.4 gm/dL (11.4-16.0) L 01/18/18 06:38 Hct 33.6 % (34.0-46.0) L 01/18/18 06:38 MCV 91.0 fL (80.0-100.0) 01/18/18 06:38 MCH 28.2 pg (25.0-35.0) 01/18/18 06:38 MCHC 30.9 g/dL (31.0-37.0) L 01/18/18 06:38 RDW 13.7 % (11.5-15.5) 01/18/18 06:38 Plt Count 462 k/uL (150-450) H 01/18/18 06:38 Neutrophils % 56 % 01/18/18 06:38 Lymphocytes % 33 % 01/18/18 06:38 Monocytes % 5 % 01/18/18 06:38 Eosinophils % 3 % 01/18/18 06:38 Basophils % 1 % 01/18/18 06:38 Neutrophils # 7.0 k/uL (1.3-7.7) 01/18/18 06:38 Lymphocytes # 4.1 k/uL (1.0-4.8) 01/18/18 06:38 Monocytes # 0.6 k/uL (0-1.0) 01/18/18 06:38 Eosinophils # 0.4 k/uL (0-0.7) 01/18/18 06:38 Basophils # 0.1 k/uL (0-0.2) 01/18/18 06:38 Sodium 138 mmol/L (137-145) 01/22/18 07:40 Potassium 4.9 mmol/L (3.5-5.1) 01/22/18 07:40 Chloride 104 mmol/L (98-107) 01/22/18 07:40 Carbon Dioxide 22 mmol/L (22-30) 01/22/18 07:40 Anion Gap 12 mmol/L 01/22/18 07:40 BUN 26 mg/dL (7-17) H 01/22/18 07:40 Creatinine 1.10 mg/dL (0.52-1.04) H 01/22/18 07:40 Est GFR (CKD-EPI)AfAm 60 (>60 ml/min/1.73 sqM) 01/22/18 07:40 Est GFR (CKD-EPI)NonAf 52 (>60 ml/min/1.73 sqM) 01/22/18 07:40 Glucose 231 mg/dL (74-99) H 01/22/18 07:40 POC Glucose (mg/dL) 210 mg/dL (75-99) H 01/23/18 20:11 POC Glu Application Technical Designer ID Nora Bell 01/23/18 20:11 Plasma Lactic Acid [place] 1.2 mmol/L (0.7-2.0) 01/17/18 12:10 Calcium 9.5 mg/dL (8.4-10.2) 01/22/18 07:40 Phosphorus 3.2 mg/dL (2.5-4.5) 01/19/18 06:57 Magnesium 1.7 mg/dL (1.6-2.3) 01/17/18 12:10 Total Bilirubin 0.4 mg/dL (0.2-1.3) 01/17/18 12:10 AST 27 U/L (14-36) 01/17/18 12:10 ALT 51 U/L (9-52) 01/17/18 12:10 Alkaline Phosphatase 328 U/L (38-126) H 01/17/18 12:10 Total Protein 7.1 g/dL (6.3-8.2) 01/17/18 12:10 Albumin 3.7 g/dL (3.5-5.0) 01/17/18 12:10 PTH Intact 56.6 pg/mL (14.0-72.0) 01/19/18 06:57 Urine Color Light Yellow 01/18/18 23:15 Urine Appearance Clear (Clear) 01/18/18 23:15 Urine pH 7.0 (5.0-8.0) 01/18/18 23:15 Ur Specific [place] 1.012 (1.001-1.035) 01/18/18 23:15 Urine Protein Trace (Negative) H 01/18/18 23:15 Urine Glucose (UA) 2+ (Negative) H 01/18/18 23:15 Urine Ketones Negative (Negative) 01/18/18 23:15 Urine Blood Negative (Negative) 01/18/18 23:15 Urine Nitrite Negative (Negative) 01/18/18 23:15 Urine Bilirubin Negative (Negative) 01/18/18 23:15 Urine Urobilinogen <2.0 mg/dL (<2.0) 01/18/18 23:15 Ur Leukocyte Esterase Negative (Negative) 01/18/18 23:15 Acetone, Qual Negative (Negative) 01/17/18 12:10 Microbiology 01/17/18 12:10 Blood Blood Culture - Final No Growth after 144 hours 01/18/18 02:53 Toe - Left First Gram Stain - Final 01/18/18 02:53 Toe - Left First Wound Culture - Final The outpatient culture shows evidence of Stenotrophomonas maltophilia susceptible to trimethoprim sulfamethoxazole Assessment and Plan (1) Leukocytosis Current Visit: Yes Status: Acute Code(s): D72.829 - ELEVATED WHITE BLOOD CELL COUNT, UNSPECIFIED SNOMED Code(s): 040412717 (2) Diabetic foot ulcer associated with type 2 diabetes mellitus, with fat layer exposed Narrative/Plan: 67-year-old female presents to the hospital from the wound healing Center with concerns to them extensive left diabetic foot ulceration involving the great toe. It is time information is given to the patient about the great importance of that toe and how it impacts balance and walking. It is crucial for ambulation and if the toe can be salvaged he can directly impact ambulation which then impacts quality of life. Bone scan is requested to evaluate for underlying bony infection which appears to be occurring. May need some surgical debridement. Antibiotics therapy with Zosyn and vancomycin has begun. Cultures obtained. We'll update her tetanus vaccine, ensure she has adequate protein intake, and a multivitamin. Elevate the foot at rest. 01/18/2018 reveals a patient of had her renal ultrasound without evidence of obstruction given the increased creatinine. Bone scan is positive for osteomyelitis of the left great toe. Has been seen by vascular surgery and likely will have in the next few days the distal toe amputation for the extensive ulceration that is present with the exposed bone. Continue the current antibiotic therapy of Zosyn and vancomycin until we have culture results. Offload the foot. 01/19/2018 reveals the patient to be stable. There is evidence of the Omer grade 4 diabetic foot infection and will have amputation of the distal aspect of the great toe, with goal for salvage as much of the metatarsal head as possible to help her with her gait. The patient understands that her blood glucose needs to be improved. If she does not have improved glucose control progressive amputation could occur. The outcome of surgery will determine the course of antibiotic therapy at discharge. 01/21/2018 the patient is doing relatively well on current antibiotic therapy of Zosyn and vancomycin. Cultures are in progress. She does have a Omer grade 4 diabetic looks really ulceration of the left great toe and will be taken to the operating room tomorrow for debridement and amputation, hopefully saving the metatarsal head to maintain her ability to ambulate. The outcome of surgery will determine the course of outpatient antibiotic therapy. The leukocytosis is showing some improvement with current antibiotic therapy and attempts for improved glucose control. 01/22/2018 reveals the patient to now be postoperative the distal toe amputation of the left great toe was salvage the metatarsal head. Local wound care as per surgery at this point in time. Antibiotic therapy continues with Zosyn and vancomycin for now. The operative room findings and cultures will determine the course of antibiotic therapy at discharge whether it will be intravenous or oral 01/15/2018 shows the patient to be improving. She's having no new problems and is looking forward to transitioning to home in the near future. In the time of discharge it is likely she will be transitioned to oral antibiotic therapy with trimethoprim sulfamethoxazole to complete her course of therapy. She will need offloading, a Darco forefoot offloaded would be helpful. And then following the wound healing Center. Current Visit: Yes Status: Acute Code(s): E11.621 - TYPE 2 DIABETES MELLITUS WITH FOOT ULCER; L97.502 - NON-PRS CHRONIC ULCER OTH PRT UNSP FOOT W FAT LAYER EXPOSED SNOMED Code(s): 7613377267860
[2018-01-24 01:56] LABS: Glucose,Whole Blood 306 mg/dL (75-99)
[2018-01-24] MEDS: PIPERACILLIN-TAZOBACTAM 3.375 GM in DEXTROSE/WATER 1 50ML.BAG IVPB SCH ×3 (04:26→21:34)
[2018-01-24 07:07] LABS: Glucose,Whole Blood 239 mg/dL (75-99)
[2018-01-24] MEDS: amLODIPine 5 MG TAB PO SCH ×2 (08:00→21:33)
[2018-01-24] MEDS: hydrALAZINE HCL 50 MG TAB PO SCH ×3 (08:00→22:24)
[2018-01-24] MEDS: SODIUM BICARBONATE TAB 650 MG TAB PO SCH ×3 (08:01→22:23)
[2018-01-24] MEDS: INSULIN DETEMIR 100 UNIT/ML 10 ML VIAL SQ SCH ×2 (08:03→21:33)
[2018-01-24] MEDS: INSULIN ASPART 100 UNIT/ML 1 ML 10 ML VIAL SQ SCH ×3 (08:03→17:17)
[2018-01-24] MEDS: ENOXAPARIN 40 MG/0.4 ML SYRINGE SQ SCH (08:03)
[2018-01-24 08:57] LABS: Basophils # (A) 0.1 k/uL (0-0.2); Basophils % (A) 1 %; Eosinophils # (A) 0.3 k/uL (0-0.7); Eosinophils % (A) 3 %; HCT 34.6 % (34.0-46.0); HGB 11.6 gm/dL (11.4-16.0); Lymphocytes # (A) 2.9 k/uL (1.0-4.8); Lymphocytes % (A) 28 %; MCH 29.6 pg (25.0-35.0); MCHC 33.4 g/dL (31.0-37.0); MCV 88.6 fL (80.0-100.0); Mean Platelet Volume 6.7; Monocytes # (A) 0.5 k/uL (0-1.0); Monocytes % (A) 4 %; Neutrophils # (A) 6.6 k/uL (1.3-7.7); Neutrophils % (A) 63 %; Platelet Count 342 k/uL (150-450); RBC 3.91 m/uL (3.80-5.40); RDW 13.7 % (11.5-15.5); WBC 10.5 k/uL (3.8-10.6)
--- NOTE | 2018-01-24 09:36 | PN ---
PROGRESS NOTE This patient had a left big toe amputation. We have changed the dressing. Incision site is healing. Continue with IV antibiotic. We will change the dressing tomorrow and decide if the patient can go home. MMODL / IJN: [id number] /
[2018-01-24 11:27] LABS: Glucose,Whole Blood 239 mg/dL (75-99)
[2018-01-24 12:28] LABS: Potassium 4.7 mmol/L (3.5-5.1)
[2018-01-24] MEDS: MULTIVITAMINS, THERA 1 EACH TAB PO SCH (13:00)
[2018-01-24 17:01] LABS: Glucose,Whole Blood 155 mg/dL (75-99)
[2018-01-24 20:00] LABS: Glucose,Whole Blood 210 mg/dL (75-99)
--- NOTE | 2018-01-24 21:00 | P.PN ---
Subjective Progress Note Date: 01/24/18 Principal diagnosis: Diabetic foot ulcer 67-year-old female with a long-standing history of diabetes mellitus type 2 poorly controlled relates to a hemoglobin A1c and a somewhat recent past of 12 that has improved to the about 11 range recently. Best A1c in the last year was nine Patient relates that she noticed over the last several days that the left great toe had begun to swell and a white blistered material forming on the dorsum of the toe. It became swollen and erythematous. 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 She was unaware that there is an ulceration to the plantar surface of the first metatarsal head. Because of the change to the foot she was seen at the wound healing center today. With evidence of the active infection she was admitted to hospital in the infectious diseases consultation was requested. Patient believes that she's probably had a fever and chill but has not taken her temperature. Has not recently taken her blood sugars but expected them to be elevated. She is feeling poorly with fever symptomatically and chills. She however is denying significant headache or visual changes. No chest pains or pressures or shortness of breath. Denies abdominal pains. No nausea or emesis. 01/18/2018 reveals that the patient had evaluation today. Evidence of the fracture of the distal part of the great toe. Ultrasound of kidneys have been performed. Is evaluated by vascular surgery and likely will need it distal toe amputation in the near future. 01/19/2018 reveals the patient to be feeling a bit better today. Her mood is a bit improved now that she has had some time to understand what is occurring. Her is present and is helpful, she understands that a surgical debridement in distal toe amputation will be performed likely on Sunday. That will then help us determine the course of therapy at that time. 01/21/2018 patient has some further improvement. She is in good understanding of the plan for surgery tomorrow for the distal toe amputation for the Omer grade 4 diabetic lower extremity ulceration. Blood sugars are improving. She is not feeling poorly such as fevers or chills. 01/22/2018 patient has some further improvement. She did have the surgical amputation of the distal aspect of the left great toe with salvage of the metatarsal head. Apparently she's having no acute difficulties and surgical dressing is in place and is not to be removed today. She denies fevers or chills but sugars are improving she's anxious about the debridement and amputation that is doing well. 01/23/2018 reveals the patient to have further improvement. She is not having significant pain, blood sugars are improving but still slightly problematic. 01/24/2018 reveals the patient to have further improvement. Pain is not a difficulty at this time. Blood sugars are problematic but improved overall. Surgical see her again and likely discharge tomorrow. Objective - Vital Signs Vital signs: Vital Signs Temp 98.6 F 01/24/18 20:54 Pulse 86 01/24/18 20:54 Resp 18 01/24/18 20:54 BP 164/72 01/24/18 20:54 Pulse Ox 96 01/24/18 20:54 Intake & Output 01/24/18 01/24/18 01/25/18 06:59 18:59 06:59 Intake Total 500 400 Balance 500 400 Weight 83.915 kg Intake: IV 500 400 Piperacillin-Tazobactam 3 100 .375 gm In Dextrose/Water 1 50ml.bag @ 12.5 mls/hr IVPB Q8H PREET Rx#: [id number] Sodium Chloride 0.9% 1, 400 400 000 ml @ 50 mls/hr IV . Q20H PREET Rx#:[id number] Other: Voiding Method Toilet # Voids 1 1 - Exam 67-year-old female presents to Hospital from the wound center where there is notation of the acute infectious process of the left great toe HEENT: Anicteric conjunctiva are pink and moist nasal mucosa grossly intact without significant lesions, there is no thrush. Neck: The neck is supple without significant lymphadenopathy or thyromegaly. Lungs: Good bilateral air entry without significant crackles or wheezing. There is no significant bronchial sounds. There is no egophony or dullness. Heart: Regular rate and rhythm with an audible S1-S2, no S3 no S4. There is no significant murmur click or rub, PMI was nondisplaced. Abdomen: Positive bowel sounds soft and nontender without palpable masses or organomegaly. There was no guarding or rebound. Extremities: The upper extremities have excellent pulses they are symmetric, no significant petechiae or telangiectasia. No splinter hemorrhages were noted. The right lower extremity has no difficulties in that there is no smoking edema , or lesions. The left lower extremity has evidence of some mild generalized swelling to the foot . The distal toe amputation has occurred with salvage of the metatarsal head to the left foot at this time. The swelling is improving as is the generalized erythema. Neuro: Awake alert oriented to person place and time. There are no acute new gross focal sensory motor deficits. However there is bilateral peripheral neuropathy to the feet. - Labs CBC & Chem 7: 01/24/18 08:31 01/24/18 08:31 Labs: Abnormal Lab Results - Last 24 Hours (Table) 01/24/18 01/24/18 01/24/18 Range/Units 01:54 07:06 08:31 BUN 25 H (7-17) mg/dL Glucose 270 H (74-99) mg/dL POC Glucose (mg/dL) 306 H 239 H (75-99) mg/dL 01/24/18 01/24/18 01/24/18 Range/Units 11:25 16:59 19:59 BUN (7-17) mg/dL Glucose (74-99) mg/dL POC Glucose (mg/dL) 239 H 155 H 210 H (75-99) mg/dL Laboratory Results WBC 10.5 k/uL (3.8-10.6) 01/24/18 08:31 RBC 3.91 m/uL (3.80-5.40) 01/24/18 08:31 Hgb 11.6 gm/dL (11.4-16.0) 01/24/18 08:31 Hct 34.6 % (34.0-46.0) 01/24/18 08:31 MCV 88.6 fL (80.0-100.0) 01/24/18 08:31 MCH 29.6 pg (25.0-35.0) 01/24/18 08:31 MCHC 33.4 g/dL (31.0-37.0) 01/24/18 08:31 RDW 13.7 % (11.5-15.5) 01/24/18 08:31 Plt Count 342 k/uL (150-450) 01/24/18 08:31 Neutrophils % 63 % 01/24/18 08:31 Lymphocytes % 28 % 01/24/18 08:31 Monocytes % 4 % 01/24/18 08:31 Eosinophils % 3 % 01/24/18 08:31 Basophils % 1 % 01/24/18 08:31 Neutrophils # 6.6 k/uL (1.3-7.7) 01/24/18 08:31 Lymphocytes # 2.9 k/uL (1.0-4.8) 01/24/18 08:31 Monocytes # 0.5 k/uL (0-1.0) 01/24/18 08:31 Eosinophils # 0.3 k/uL (0-0.7) 01/24/18 08:31 Basophils # 0.1 k/uL (0-0.2) 01/24/18 08:31 Sodium 144 mmol/L (137-145) 01/24/18 08:31 Potassium 4.7 mmol/L (3.5-5.1) 01/24/18 08:31 Chloride 106 mmol/L (98-107) 01/24/18 08:31 Carbon Dioxide 22 mmol/L (22-30) 01/24/18 08:31 Anion Gap 16 mmol/L 01/24/18 08:31 BUN 25 mg/dL (7-17) H 01/24/18 08:31 Creatinine 1.00 mg/dL (0.52-1.04) 01/24/18 08:31 Est GFR (CKD-EPI)AfAm 67 (>60 ml/min/1.73 sqM) 01/24/18 08:31 Est GFR (CKD-EPI)NonAf 58 (>60 ml/min/1.73 sqM) 01/24/18 08:31 Glucose 270 mg/dL (74-99) H 01/24/18 08:31 POC Glucose (mg/dL) 210 mg/dL (75-99) H 01/24/18 19:59 POC Glu Bridge Opener ID Nora Bell 01/24/18 19:59 Plasma Lactic Acid Wallace 1.2 mmol/L (0.7-2.0) 01/17/18 12:10 Calcium 10.0 mg/dL (8.4-10.2) 01/24/18 08:31 Phosphorus 3.2 mg/dL (2.5-4.5) 01/19/18 06:57 Magnesium 1.7 mg/dL (1.6-2.3) 01/17/18 12:10 Total Bilirubin 0.4 mg/dL (0.2-1.3) 01/17/18 12:10 AST 27 U/L (14-36) 01/17/18 12:10 ALT 51 U/L (9-52) 01/17/18 12:10 Alkaline Phosphatase 328 U/L (38-126) H 01/17/18 12:10 Total Protein 7.1 g/dL (6.3-8.2) 01/17/18 12:10 Albumin 3.7 g/dL (3.5-5.0) 01/17/18 12:10 PTH Intact 56.6 pg/mL (14.0-72.0) 01/19/18 06:57 Urine Color Light Yellow 01/18/18 23:15 Urine Appearance Clear (Clear) 01/18/18 23:15 Urine pH 7.0 (5.0-8.0) 01/18/18 23:15 Ur Specific [place] 1.012 (1.001-1.035) 01/18/18 23:15 Urine Protein Trace (Negative) H 01/18/18 23:15 Urine Glucose (UA) 2+ (Negative) H 01/18/18 23:15 Urine Ketones Negative (Negative) 01/18/18 23:15 Urine Blood Negative (Negative) 01/18/18 23:15 Urine Nitrite Negative (Negative) 01/18/18 23:15 Urine Bilirubin Negative (Negative) 01/18/18 23:15 Urine Urobilinogen <2.0 mg/dL (<2.0) 01/18/18 23:15 Ur Leukocyte Esterase Negative (Negative) 01/18/18 23:15 Acetone, Qual Negative (Negative) 01/17/18 12:10 Microbiology 01/17/18 12:10 Blood Blood Culture - Final No Growth after 144 hours 01/18/18 02:53 Toe - Left First Gram Stain - Final 01/18/18 02:53 Toe - Left First Wound Culture - Final Assessment and Plan (1) Leukocytosis Current Visit: Yes Status: Acute Code(s): D72.829 - ELEVATED WHITE BLOOD CELL COUNT, UNSPECIFIED SNOMED Code(s): 777477400 (2) Diabetic foot ulcer associated with type 2 diabetes mellitus, with fat layer exposed Narrative/Plan: 67-year-old female presents to the hospital from the wound healing Center with concerns to them extensive left diabetic foot ulceration involving the great toe. It is time information is given to the patient about the great importance of that toe and how it impacts balance and walking. It is crucial for ambulation and if the toe can be salvaged he can directly impact ambulation which then impacts quality of life. Bone scan is requested to evaluate for underlying bony infection which appears to be occurring. May need some surgical debridement. Antibiotics therapy with Zosyn and vancomycin has begun. Cultures obtained. We'll update her tetanus vaccine, ensure she has adequate protein intake, and a multivitamin. Elevate the foot at rest. 01/18/2018 reveals a patient of had her renal ultrasound without evidence of obstruction given the increased creatinine. Bone scan is positive for osteomyelitis of the left great toe. Has been seen by vascular surgery and likely will have in the next few days the distal toe amputation for the extensive ulceration that is present with the exposed bone. Continue the current antibiotic therapy of Zosyn and vancomycin until we have culture results. Offload the foot. 01/19/2018 reveals the patient to be stable. There is evidence of the Omer grade 4 diabetic foot infection and will have amputation of the distal aspect of the great toe, with goal for salvage as much of the metatarsal head as possible to help her with her gait. The patient understands that her blood glucose needs to be improved. If she does not have improved glucose control progressive amputation could occur. The outcome of surgery will determine the course of antibiotic therapy at discharge. 01/21/2018 the patient is doing relatively well on current antibiotic therapy of Zosyn and vancomycin. Cultures are in progress. She does have a Omer grade 4 diabetic looks really ulceration of the left great toe and will be taken to the operating room tomorrow for debridement and amputation, hopefully saving the metatarsal head to maintain her ability to ambulate. The outcome of surgery will determine the course of outpatient antibiotic therapy. The leukocytosis is showing some improvement with current antibiotic therapy and attempts for improved glucose control. 01/22/2018 reveals the patient to now be postoperative the distal toe amputation of the left great toe was salvage the metatarsal head. Local wound care as per surgery at this point in time. Antibiotic therapy continues with Zosyn and vancomycin for now. The operative room findings and cultures will determine the course of antibiotic therapy at discharge whether it will be intravenous or oral 01/23/2018 shows the patient to be improving. She's having no new problems and is looking forward to transitioning to home in the near future. In the time of discharge it is likely she will be transitioned to oral antibiotic therapy with trimethoprim sulfamethoxazole to complete her course of therapy. She will need offloading, a Darco forefoot offloaded would be helpful. And then following the wound healing Center. 01/24/2018 reveals further improvement. Patient with 4 to going home soon. It is noted she's had the distal toe grade 4 ulceration removed by amputation has had closure. She'll need to offload the site. Antibiotic therapy was transitioned to Bactrim at the time of her discharge for follow-up and wound healing center. Current Visit: Yes Status: Acute Code(s): E11.621 - TYPE 2 DIABETES MELLITUS WITH FOOT ULCER; L97.502 - NON-PRS CHRONIC ULCER OTH PRT UNSP FOOT W FAT LAYER EXPOSED SNOMED Code(s): 4512798221123
[2018-01-24] MEDS: ATORVASTATIN 10 MG TAB PO SCH (21:33)
[2018-01-25 02:23] LABS: Glucose,Whole Blood 208 mg/dL (75-99)
[2018-01-25] MEDS: PIPERACILLIN-TAZOBACTAM 3.375 GM in DEXTROSE/WATER 1 50ML.BAG IVPB SCH ×2 (04:14→13:15)
--- NOTE | 2018-01-25 06:52 | PN ---
PROGRESS NOTE DATE OF SERVICE: 01/24/2018 PRESENTING COMPLAINT: Left big toe amputation. INTERVAL HISTORY: Patient is status post amputation left big toe osteomyelitis. Sugars were uncontrolled. Doing much better. No pain. Dressing was looked at by Dr. Cadena and Dr. Turk. REVIEW OF SYSTEMS: Review of systems done for constitutional, cardiovascular, GI, pulmonary; relevant findings as above. MEDICATIONS: Current medications are reviewed that include IV Zosyn. PHYSICAL EXAMINATION: On examination, temperature 98.3, pulse 82, respiration 16, blood pressure 142/66, pulse ox 93% on room air. GENERAL APPEARANCE: Lying in bed, comfortable. EYES: Pupils equal. Conjunctivae normal. HENT: External appearance of nose and ears normal. Oral cavity normal. NECK: JVD not raised. Mass not palpable. RESPIRATORY: Effort normal. Lungs are clear. CARDIOVASCULAR: First and second sounds normal. No edema. ABDOMEN: Soft, nontender. Liver and spleen not palpable. PSYCHIATRY: Alert and oriented x3. Mood and affect normal. EXTREMITIES: Left in a dressing. INVESTIGATIONS: Accu-Cheks 239,155, 210. White count 10.5. ASSESSMENT: 1. Acute left big toe osteomyelitis, status post amputation. 2. Hyperkalemia secondary to renal failure, corrected. 3. Essential hypertension urgency, improving. 4. Sinus bradycardia from beta joselyn, discontinued. 5. Intermittent asthma. 6. Diabetes mellitus type 2, currently on insulin, uncontrolled with hyperglycemia. 7. Peripheral neuropathy secondary to diabetes. 8. Chronic kidney disease, stage 3, from diabetic nephrosclerosis. PLAN: Will today increase the Lantus to units twice a day. Keep the Humalog at the same dose. The patient hopefully can be switched over to oral antibiotics by tomorrow. Care was discussed with the patient. Blood pressure is more reasonably controlled. MMODL / IJN: [id number] /
--- NOTE | 2018-01-25 06:58 | PN ---
PROGRESS NOTE ADDENDUM: DATE OF SERVICE: 01/23/2018. ASSESSMENT: 1. Acute left big toe osteomyelitis. 2. Hyperkalemia secondary to renal failure, improving. 3. Essential hypertension with urgency. 4. Sinus bradycardia from beta joselyn, now discontinued. 5. Intermittent asthma. 6. Diabetes mellitus type 2, currently on insulin, uncontrolled with hyperglycemia. 7. Peripheral neuropathy secondary to diabetes. 8. Chronic kidney disease, stage 3, from diabetic nephropathy. PLAN: Continue current medication and treatment planning. Care was discussed with the patient and at the bedside. Insulin will be adjusted based on sugars. Will follow. MMODL / IJN: [id number] /
[2018-01-25 07:28] LABS: Glucose,Whole Blood 221 mg/dL (75-99)
[2018-01-25] MEDS: INSULIN ASPART 100 UNIT/ML 1 ML 10 ML VIAL SQ SCH ×3 (07:59→17:45)
[2018-01-25] MEDS: ENOXAPARIN 40 MG/0.4 ML SYRINGE SQ SCH (08:00)
[2018-01-25] MEDS: amLODIPine 5 MG TAB PO SCH (08:02)
[2018-01-25] MEDS: SODIUM BICARBONATE TAB 650 MG TAB PO SCH ×2 (08:02→17:45)
[2018-01-25] MEDS: hydrALAZINE HCL 50 MG TAB PO SCH ×2 (08:02→17:45)
[2018-01-25 08:39] VITALS: BP 128/78; PULSE 81; RESP 16; TEMP 97.9
[2018-01-25 08:53] LABS: Calcium 9.4 mg/dL (8.4-10.2); Potassium 4.4 mmol/L (3.5-5.1)
[2018-01-25] MEDS ORDERED: INSULIN DETEMIR 100 UNIT/ML 10 ML VIAL SQ SCH (09:00)
[2018-01-25 11:50] LABS: Glucose,Whole Blood 263 mg/dL (75-99)
[2018-01-25] MEDS: MULTIVITAMINS, THERA 1 EACH TAB PO SCH (13:15)
[2018-01-25 16:54] LABS: Glucose,Whole Blood 192 mg/dL (75-99)
--- NOTE | 2018-01-25 20:22 | DS ---
DISCHARGE SUMMARY DATE OF ADMISSION: 01/17/18 DATE OF DISCHARGE: 01/25/18 FINAL DIAGNOSES: 1. Acute left big toe osteomyelitis. 2. Hyperkalemia secondary to renal failure. 3. Essential hypertension with urgency. 4. Sinus bradycardia from beta joselyn discontinued. 5. Intermittent asthma. 6. Diabetes mellitus type 2, chronically on insulin, uncontrolled with hyperglycemia. 7. Peripheral neuropathy secondary to diabetes. 8. Chronic kidney disease stage 3 from diabetic nephrosclerosis. HOSPITAL COURSE: This pleasant lady with the above problems presented with blue discoloration of the left toe. Did get outpatient antibiotics to which she failed. Did go down to the wound center to see Dr. Scruggs. Where lucency was found in the distal phalanx. Did send a bone out, cultures, did grow Stenotrophomonas maltophilia because patient's digit was severely infected and are looking good. Dr. Turk did carry out amputation. The patient's sugars are running really high. They were adjusted to bring the numbers down. May need further adjustment as an outpatient. Even the blood pressure was running high and blood pressure was more reasonable by the time of discharge. Last reading was 128/78. The patient's creatinine was 0.90 by the time of discharge. Today, I discussed at length with the patient including a blood pressure and diabetic management. She will have it further followed up in the office. CONSULTATION: Dr. Cadena, Infectious Disease, Dr. Turk from vascular surgery. The patient did have a nuclear bone scan that showed osteomyelitis. DISCHARGE MEDICATIONS: 1. Omeprazole 20 mg a day. 2. Vitamin D3 2000 p.o. daily. 3. Lipitor 20 mg daily. 4. NovoLog 20 units subcu a.c. t.i.d. 5. Levemir 36 units subcu b.i.d. 6. Sodium bicarb 325 mg p.o. t.i.d. 7. Bactrim DS 1 tablet p.o. q.12, 28 tablets. 8. Norvasc 10 mg p.o. daily. 9. Hydralazine 50 mg p.o. t.i.d. FOLLOW UP: With Dr. Jewell on January 29, 2018, Dr. Jose Turk on January 28, 2018, Dr. Cadena in 2 weeks. Labs, CBC BMP in 3 days. The patient check on the Accu-Cheks. Nonweightbearing boot offloading boot was given. EXAM: Lungs are clear. Cardiovascular 1st and 2nd sounds normal. Left toe in a dressing. Discussion and discharge planning more than [address] Jewell. JAMISON / ABEL: [id number] /
--- NOTE | 2018-01-25 22:27 | P.PN ---
Subjective Progress Note Date: 01/25/18 Principal diagnosis: Diabetic foot ulcer 67-year-old female with a long-standing history of diabetes mellitus type 2 poorly controlled relates to a hemoglobin A1c and a somewhat recent past of 12 that has improved to the about 11 range recently. Best A1c in the last year was nine Patient relates that she noticed over the last several days that the left great toe had begun to swell and a white blistered material forming on the dorsum of the toe. It became swollen and erythematous. 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 She was unaware that there is an ulceration to the plantar surface of the first metatarsal head. Because of the change to the foot she was seen at the wound healing center today. With evidence of the active infection she was admitted to hospital in the infectious diseases consultation was requested. Patient believes that she's probably had a fever and chill but has not taken her temperature. Has not recently taken her blood sugars but expected them to be elevated. She is feeling poorly with fever symptomatically and chills. She however is denying significant headache or visual changes. No chest pains or pressures or shortness of breath. Denies abdominal pains. No nausea or emesis. 01/18/2018 reveals that the patient had evaluation today. Evidence of the fracture of the distal part of the great toe. Ultrasound of kidneys have been performed. Is evaluated by vascular surgery and likely will need it distal toe amputation in the near future. 01/19/2018 reveals the patient to be feeling a bit better today. Her mood is a bit improved now that she has had some time to understand what is occurring. Her is present and is helpful, she understands that a surgical debridement in distal toe amputation will be performed likely on Sunday. That will then help us determine the course of therapy at that time. 01/21/2018 patient has some further improvement. She is in good understanding of the plan for surgery tomorrow for the distal toe amputation for the Omer grade 4 diabetic lower extremity ulceration. Blood sugars are improving. She is not feeling poorly such as fevers or chills. 01/22/2018 patient has some further improvement. She did have the surgical amputation of the distal aspect of the left great toe with salvage of the metatarsal head. Apparently she's having no acute difficulties and surgical dressing is in place and is not to be removed today. She denies fevers or chills but sugars are improving she's anxious about the debridement and amputation that is doing well. 01/23/2018 reveals the patient to have further improvement. She is not having significant pain, blood sugars are improving but still slightly problematic. 01/24/2018 reveals the patient to have further improvement. Pain is not a difficulty at this time. Blood sugars are problematic but improved overall. Surgical see her again and likely discharge tomorrow. 01/25/2018 the patient is had further improvement in looks or discharge home today. Blood sugars are a little more stable and she is feeling somewhat better. She's having no fevers or chills. Objective - Vital Signs Vital signs: Vital Signs Temp 97.9 F 01/25/18 07:00 Pulse 81 01/25/18 07:00 Resp 16 01/25/18 07:00 BP 128/78 01/25/18 07:00 Pulse Ox 95 01/25/18 07:00 Intake & Output 01/25/18 01/25/18 01/26/18 06:59 18:59 06:59 Intake Total 650 Balance 650 Weight 83.915 kg Intake: Intake, IV Titration 50 Amount Piperacillin-Tazobactam 3 50 .375 gm In Dextrose/Water 1 50ml.bag @ 12.5 mls/hr IVPB Q8H [facility] Rx#: [id number] Oral 600 Other: Voiding Method Toilet Toilet # Voids 1 - Exam 67-year-old female presents to Hospital from the wound center where there is notation of the acute infectious process of the left great toe HEENT: Anicteric conjunctiva are pink and moist nasal mucosa grossly intact without significant lesions, there is no thrush. Neck: The neck is supple without significant lymphadenopathy or thyromegaly. Lungs: Good bilateral air entry without significant crackles or wheezing. There is no significant bronchial sounds. There is no egophony or dullness. Heart: Regular rate and rhythm with an audible S1-S2, no S3 no S4. There is no significant murmur click or rub, PMI was nondisplaced. Abdomen: Positive bowel sounds soft and nontender without palpable masses or organomegaly. There was no guarding or rebound. Extremities: The upper extremities have excellent pulses they are symmetric, no significant petechiae or telangiectasia. No splinter hemorrhages were noted. The right lower extremity has no difficulties in that there is no smoking edema , or lesions. The left lower extremity has evidence of some mild generalized swelling to the foot . The distal toe amputation has occurred with salvage of the metatarsal head to the left foot at this time. The swelling is improving as is the generalized erythema. Neuro: Awake alert oriented to person place and time. There are no acute new gross focal sensory motor deficits. However there is bilateral peripheral neuropathy to the feet. - Labs CBC & Chem 7: 01/24/18 08:31 01/25/18 07:41 Labs: Abnormal Lab Results - Last 24 Hours (Table) 01/25/18 01/25/18 01/25/18 Range/Units 02:21 07:23 07:41 BUN 21 H (7-17) mg/dL Glucose 224 H (74-99) mg/dL POC Glucose (mg/dL) 208 H 221 H (75-99) mg/dL 01/25/18 01/25/18 Range/Units 11:31 16:52 BUN (7-17) mg/dL Glucose (74-99) mg/dL POC Glucose (mg/dL) 263 H 192 H (75-99) mg/dL Laboratory Results WBC 10.5 k/uL (3.8-10.6) 01/24/18 08:31 RBC 3.91 m/uL (3.80-5.40) 01/24/18 08:31 Hgb 11.6 gm/dL (11.4-16.0) 01/24/18 08:31 Hct 34.6 % (34.0-46.0) 01/24/18 08:31 MCV 88.6 fL (80.0-100.0) 01/24/18 08:31 MCH 29.6 pg (25.0-35.0) 01/24/18 08:31 MCHC 33.4 g/dL (31.0-37.0) 01/24/18 08:31 RDW 13.7 % (11.5-15.5) 01/24/18 08:31 Plt Count 342 k/uL (150-450) 01/24/18 08:31 Neutrophils % 63 % 01/24/18 08:31 Lymphocytes % 28 % 01/24/18 08:31 Monocytes % 4 % 01/24/18 08:31 Eosinophils % 3 % 01/24/18 08:31 Basophils % 1 % 01/24/18 08:31 Neutrophils # 6.6 k/uL (1.3-7.7) 01/24/18 08:31 Lymphocytes # 2.9 k/uL (1.0-4.8) 01/24/18 08:31 Monocytes # 0.5 k/uL (0-1.0) 01/24/18 08:31 Eosinophils # 0.3 k/uL (0-0.7) 01/24/18 08:31 Basophils # 0.1 k/uL (0-0.2) 01/24/18 08:31 Sodium 138 mmol/L (137-145) 01/25/18 07:41 Potassium 4.4 mmol/L (3.5-5.1) 01/25/18 07:41 Chloride 101 mmol/L (98-107) 01/25/18 07:41 Carbon Dioxide 23 mmol/L (22-30) 01/25/18 07:41 Anion Gap 14 mmol/L 01/25/18 07:41 BUN 21 mg/dL (7-17) H 01/25/18 07:41 Creatinine 0.90 mg/dL (0.52-1.04) 01/25/18 07:41 Est GFR (CKD-EPI)AfAm 76 (>60 ml/min/1.73 sqM) 01/25/18 07:41 Est GFR (CKD-EPI)NonAf 66 (>60 ml/min/1.73 sqM) 01/25/18 07:41 Glucose 224 mg/dL (74-99) H 01/25/18 07:41 POC Glucose (mg/dL) 192 mg/dL (75-99) H 01/25/18 16:52 POC Glu Scientific Affairs Manager JOSIE Deborah Conway 01/25/18 16:52 Plasma Lactic Acid Wallace 1.2 mmol/L (0.7-2.0) 01/17/18 12:10 Calcium 9.4 mg/dL (8.4-10.2) 01/25/18 07:41 Phosphorus 3.2 mg/dL (2.5-4.5) 01/19/18 06:57 Magnesium 1.7 mg/dL (1.6-2.3) 01/17/18 12:10 Total Bilirubin 0.4 mg/dL (0.2-1.3) 01/17/18 12:10 AST 27 U/L (14-36) 01/17/18 12:10 ALT 51 U/L (9-52) 01/17/18 12:10 Alkaline Phosphatase 328 U/L (38-126) H 01/17/18 12:10 Total Protein 7.1 g/dL (6.3-8.2) 01/17/18 12:10 Albumin 3.7 g/dL (3.5-5.0) 01/17/18 12:10 PTH Intact 56.6 pg/mL (14.0-72.0) 01/19/18 06:57 Urine Color Light Yellow 01/18/18 23:15 Urine Appearance Clear (Clear) 01/18/18 23:15 Urine pH 7.0 (5.0-8.0) 01/18/18 23:15 Ur Specific [place] 1.012 (1.001-1.035) 01/18/18 23:15 Urine Protein Trace (Negative) H 01/18/18 23:15 Urine Glucose (UA) 2+ (Negative) H 01/18/18 23:15 Urine Ketones Negative (Negative) 01/18/18 23:15 Urine Blood Negative (Negative) 01/18/18 23:15 Urine Nitrite Negative (Negative) 01/18/18 23:15 Urine Bilirubin Negative (Negative) 01/18/18 23:15 Urine Urobilinogen <2.0 mg/dL (<2.0) 01/18/18 23:15 Ur Leukocyte Esterase Negative (Negative) 01/18/18 23:15 Acetone, Qual Negative (Negative) 01/17/18 12:10 Microbiology 01/17/18 12:10 Blood Blood Culture - Final No Growth after 144 hours 01/18/18 02:53 Toe - Left First Gram Stain - Final 01/18/18 02:53 Toe - Left First Wound Culture - Final Assessment and Plan (1) Leukocytosis Status: Acute Code(s): D72.829 - ELEVATED WHITE BLOOD CELL COUNT, UNSPECIFIED SNOMED Code(s): 992842831 (2) Diabetic foot ulcer associated with type 2 diabetes mellitus, with fat layer exposed Narrative/Plan: 67-year-old female presents to the hospital from the wound healing Center with concerns to them extensive left diabetic foot ulceration involving the great toe. It is time information is given to the patient about the great importance of that toe and how it impacts balance and walking. It is crucial for ambulation and if the toe can be salvaged he can directly impact ambulation which then impacts quality of life. Bone scan is requested to evaluate for underlying bony infection which appears to be occurring. May need some surgical debridement. Antibiotics therapy with Zosyn and vancomycin has begun. Cultures obtained. We'll update her tetanus vaccine, ensure she has adequate protein intake, and a multivitamin. Elevate the foot at rest. 01/18/2018 reveals a patient of had her renal ultrasound without evidence of obstruction given the increased creatinine. Bone scan is positive for osteomyelitis of the left great toe. Has been seen by vascular surgery and likely will have in the next few days the distal toe amputation for the extensive ulceration that is present with the exposed bone. Continue the current antibiotic therapy of Zosyn and vancomycin until we have culture results. Offload the foot. 01/19/2018 reveals the patient to be stable. There is evidence of the Omer grade 4 diabetic foot infection and will have amputation of the distal aspect of the great toe, with goal for salvage as much of the metatarsal head as possible to help her with her gait. The patient understands that her blood glucose needs to be improved. If she does not have improved glucose control progressive amputation could occur. The outcome of surgery will determine the course of antibiotic therapy at discharge. 01/21/2018 the patient is doing relatively well on current antibiotic therapy of Zosyn and vancomycin. Cultures are in progress. She does have a Omer grade 4 diabetic looks really ulceration of the left great toe and will be taken to the operating room tomorrow for debridement and amputation, hopefully saving the metatarsal head to maintain her ability to ambulate. The outcome of surgery will determine the course of outpatient antibiotic therapy. The leukocytosis is showing some improvement with current antibiotic therapy and attempts for improved glucose control. 01/22/2018 reveals the patient to now be postoperative the distal toe amputation of the left great toe was salvage the metatarsal head. Local wound care as per surgery at this point in time. Antibiotic therapy continues with Zosyn and vancomycin for now. The operative room findings and cultures will determine the course of antibiotic therapy at discharge whether it will be intravenous or oral 01/23/2018 shows the patient to be improving. She's having no new problems and is looking forward to transitioning to home in the near future. In the time of discharge it is likely she will be transitioned to oral antibiotic therapy with trimethoprim sulfamethoxazole to complete her course of therapy. She will need offloading, a Darco forefoot offloaded would be helpful. And then following the wound healing Center. 01/24/2018 reveals further improvement. Patient with 4 to going home soon. It is noted she's had the distal toe grade 4 ulceration removed by amputation has had closure. She'll need to offload the site. Antibiotic therapy was transitioned to Bactrim at the time of her discharge for follow-up and wound healing center. 01/25/2018 patient is showing improvement even further in the last day. Blood sugars are starting to improve. She is transitioned to oral antibiotic therapy with trimethoprim sulfamethoxazole and will follow-up in Center with Dr. Turk and then myself. The amputation site is doing well and offloading boot is provided, patient no she needs to utilize walking assistance such as a walker to allow the foot to heal so she has no further debridement or amputation needs to the foot. She will be discharged home today. Status: Acute Code(s): E11.621 - TYPE 2 DIABETES MELLITUS WITH FOOT ULCER; L97.502 - NON-PRS CHRONIC ULCER OTH PRT UNSP FOOT W FAT LAYER EXPOSED SNOMED Code(s): 5243325744337
--- NOTE | 2018-02-11 14:31 | CDI ---
Last Revision, September 2017 Documentation Clarification Form Date: 02/11/18 From: Yoana Driscoll Phone: If you have a question regarding this query, please contact Judi Ramirez at [phone]. Admit Date: 01/17/2018 1:32:00 PM Patient Name: Naman Palacios Visit Number: [id number] Discharge Date: 01/25/18 ATTENTION: The Clinical Documentation Specialists (CDI) and [facility] Coding Staff appreciate your assistance in clarifying documentation. Please respond to the clarification below the line at the bottom and electronically sign. The CDI & [facility] Coding staff will review the response and follow-up if needed. Please note: Queries are made part of the Legal Health Record. If you have any questions, please contact the author of this message via ITS. Dr. Bravo Mcconnell Per documentation in the H&P, the general appearance of this patient is well built, BMI 35. Patient is documented to be obese by the staff registered nurse. The hand pleater followed this patient throughout the stay. Patient history/risk factors: Patient has a history of hypertension, hyperlipidemia, DM with hyperglycemia and wound to the left great toe. Clinical Indicators: BMI 35 In your professional opinion, can you please clarify the significance of the above findings? Obese Overweight Normal weight Other, please specify Unable to determine obesity with BMI of 35 MTDD
--- NOTE | 2018-02-11 14:53 | CDI ---
Last Revision, September 2017 Documentation Clarification Form Date: 02/11/18 From: Yoana Driscoll Phone: If you have a question regarding this query, please contact Judi Ramirez at [phone] between 8am and 5pm. Admit Date: 01/17/2018 1:32:00 PM Patient Name: Naman Palacios Visit Number: [id number] Discharge Date: 01/25/18 ATTENTION: The Clinical Documentation Specialists (CDI) and [facility] Coding Staff appreciate your assistance in clarifying documentation. Please respond to the clarification below the line at the bottom and electronically sign. The CDI & [facility] Coding staff will review the response and follow-up if needed. Please note: Queries are made part of the Legal Health Record. If you have any questions, please contact the author of this message via ITS. Dr. Bravo Mcconnell Fracture of the idstal phalanx of the left great toe is documented in the ED note, H&P and in the progress notes from 01/18 - 01/25. History/Risk Factors: Patient was admitted for diabetes with osteomyelitis of the left great toe. Patient does not recall any trauma. Clinical Indications: osteomyelitis, diabetes X-Ray Results: 01/17 x-ray: fracture dislocation involving the distal phalanx of the left great toe. Treatment: Amputation of the left great toe for osteomyelitis. In your professional opinion, please specify the following: Etiology of fracture: Traumatic Pathological (specify cause): Osteoporosis Other (please specify): Unable to determine Type of Fracture: Displaced Comminuted Greenstick Nondisplaced Oblique Spiral Transverse Other (please specify): unable to determine etiology and type of fracture MTDD
--- NOTE | 2018-02-11 15:35 | CDI ---
Last Revision, September 2017 Documentation Clarification Form Date: 02/11/18 From: Yoana Driscoll Phone: If you have a question regarding this query, please contact Judi Ramirez at [phone] between 8am and 5pm. Admit Date: 01/17/2018 1:32:00 PM Patient Name: Naman Palacios Visit Number: [id number] Discharge Date: 01/25/18 ATTENTION: The Clinical Documentation Specialists (CDI) and [facility] Coding Staff appreciate your assistance in clarifying documentation. Please respond to the clarification below the line at the bottom and electronically sign. The CDI & [facility] Coding staff will review the response and follow-up if needed. Please note: Queries are made part of the Legal Health Record. If you have any questions, please contact the author of this message via ITS. Dr. Jose Cadena Conflicting documentation has been found in the medical record. In your progress notes under assessment and plan #2 you document diabetic foot ulcer associated with type 2 diabetes mellitus, with fat exposure but down further in the narrative of diagnosis #2 you state that the patient has extensive ulceration with exposed bone. History/Risk Factors: Patient has a history of diabetes, osteomyelitis and ulceration of the big toe. Treatment: Patient had amuptation of the left big toe. In your opinion what is the most clinically appropriate diagnosis for this patient? Exposed fat layer Bone involvement without necrosis Bone involvment with necrosis Wound progressed from fat layer exposure to bone exposure while in the hospital Other explanation of clinical findings Unable to determine (no explanation for clinical findings) Not conflicting but progressive, gangrene of the toe occurred and surgeon amputated the distal gangrenous area which is gaston grade 4 with bony necrosis MTDD
--- NOTE | 2018-02-11 15:50 | CDI ---
Last Revision, September 2017 Documentation Clarification Form Date: 02/11/18 From: Yoana Driscoll Phone: If you have a question regarding this query, please contact Judi Ramirez at [phone]. Admit Date: 01/17/2018 1:32:00 PM Patient Name: Naman Palacios Visit Number: [id number] Discharge Date: 01/25/18 ATTENTION: The Clinical Documentation Specialists (CDI) and [facility] Coding Staff appreciate your assistance in clarifying documentation. Please respond to the clarification below the line at the bottom and electronically sign. The CDI & [facility] Coding staff will review the response and follow-up if needed. Please note: Queries are made part of the Legal Health Record. If you have any questions, please contact the author of this message via ITS. Dr. Bravo Mcconnell In the Op Note, Dr. Turk documented that there was some necrotic tissue on the plantar aspect of the foot which was excised along the incision line. The final diagnosis of the pathology report states: Cutaneous ulceration associated with sucrative necrosis(gangrene). Patient history/risk factors: Osteomyelitis and ulcer with diabetes of the left great toe. Clinical Indicators: Blue discoloration of the left toe. Treatment: Necrotic tissue was excised. In your professional opinion, can you please clarify the diagnosis of the necrotic tissue? Gangrene Other, please specify Unable to determine left big toe plantar aspect gangrene per pathogy , POORNIMA QUINN
--- NOTE | 2018-02-17 23:46 | PN ---
PROGRESS NOTE CORRECTION: Assessment #6 should correctly read as diabetes mellitus type 2, currently on insulin, uncontrolled with hyperglycemia. MMODL / IJN: [id number] /
--- NOTE | 2018-02-18 05:37 | PN ---
PROGRESS NOTE DATE OF SERVICE: January 23, 2018. ADDENDUM: ASSESSMENT: 1. Acute left big toe osteomyelitis. 2. Hyperkalemia secondary to renal failure, improved. 3. Essential hypertension urgency, better controlled. 4. Sinus bradycardia from beta joselyn, now discontinued. 5. Intermittent asthma. 6. Diabetes mellitus type 2, currently on insulin, uncontrolled with hypoglycemia. 7. Peripheral neuropathy secondary to diabetes. 8. Chronic kidney disease stage 3 from diabetic nephropathy. PLAN: Continue current medication and treatment plan. Hopefully patient will get oral antibiotics. Will discuss with Dr. Cadena. MMKAI / ABEL: [id number] /
== END 2018-01-25 19:20 | disposition home or self-care (01) | DRG 617 ==
LOC: EC 11:36 → 5MS5E 13:32
PROVIDERS: ADMIT Hospitalist; ATTEND Hospitalist
PROC: 3E0234Z Introduction of Serum, Toxoid and Vaccine into Muscle, Percutaneous Approach (ICD-10-PCS; 2018-01-17)
PROC: 0Y6Q0Z1 Detachment at Left 1st Toe, High, Open Approach (ICD-10-PCS; principal; 2018-01-22 13:00)
DX: E11.69 Type 2 diabetes mellitus with other specified complication (principal); M86.172 Other acute osteomyelitis, left ankle and foot; E11.22 Type 2 diabetes mellitus with diabetic chronic kidney disease; E11.52 Type 2 diabetes mellitus with diabetic peripheral angiopathy with gangrene; E11.65 Type 2 diabetes mellitus with hyperglycemia; E87.5 Hyperkalemia; D72.829 Elevated white blood cell count, unspecified; S92.422A Displaced fracture of distal phalanx of left great toe, initial encounter for closed fracture; N18.3 Chronic kidney disease, stage 3 (moderate); E11.42 Type 2 diabetes mellitus with diabetic polyneuropathy; E11.621 Type 2 diabetes mellitus with foot ulcer; J45.20 Mild intermittent asthma, uncomplicated; I12.9 Hypertensive chronic kidney disease with stage 1 through stage 4 chronic kidney disease, or unspecified chronic kidney disease; L97.524 Non-pressure chronic ulcer of other part of left foot with necrosis of bone; R00.1 Bradycardia, unspecified; T44.7X5A Adverse effect of beta-adrenoreceptor antagonists, initial encounter; K21.9 Gastro-esophageal reflux disease without esophagitis; I16.0 Hypertensive urgency; E78.5 Hyperlipidemia, unspecified; E66.9 Obesity, unspecified; F41.9 Anxiety disorder, unspecified; Z98.1 Arthrodesis status; Z90.710 Acquired absence of both cervix and uterus; Z87.891 Personal history of nicotine dependence; Z87.440 Personal history of urinary (tract) infections; Z79.4 Long term (current) use of insulin; Z79.899 Other long term (current) drug therapy; Z88.6 Allergy status to analgesic agent; Z98.42 Cataract extraction status, left eye; Z98.41 Cataract extraction status, right eye; Z96.1 Presence of intraocular lens; X58.XXXA Exposure to other specified factors, initial encounter; Y92.9 Unspecified place or not applicable; Y92.009 Unspecified place in unspecified non-institutional (private) residence as the place of occurrence of the external cause; B96.89 Other specified bacterial agents as the cause of diseases classified elsewhere; Z68.35 Body mass index [BMI] 35.0-35.9, adult; Z23 Encounter for immunization
CPT/HCPCS: 36415; 76770; 78315; 80048; 80053; 81003; 82009; 83605; 83735; 83970; 84100; 84132; 85025; 87040; 87070; 87205; 88305; 88311; 90715; 96365; 96366; 96375; 99284

== ENCOUNTER 2018-02-01 18:16 | Inpatient (IN) | payer MEDICARE ==
--- NOTE | 2018-02-01 18:30 | ED ---
Altered Mental Status HPI - General Stated Complaint: altered mental status Time Seen by Provider: 02/01/18 18:16 Source: patient, EMS, RN notes reviewed, old records reviewed Mode of arrival: EMS - History of Present Illness Initial Comments: This is a 59-year-old female was brought by EMS for evaluation of altered mental status. Apparently patient was at home and EMS was called due to decreased level of responsiveness and some confusion. She is found have a low glucose of 65 she was given 1 amp of D50 she did improve. Upon arrival she felt pretty much back to normal. She denies any fevers chills nausea vomiting sweats she was recently admitted to the hospital for amputation of the left great toe. She states that she only had a small cupcake in a bowl soup today for food MD Complaint: altered mental status, decreased responsiveness - Related Data Home Medications Medication Instructions Recorded Confirmed Omeprazole 20 mg PO BID 08/22/16 02/01/18 Cholecalciferol [Vitamin D3] 2,000 unit PO DAILY 01/16/18 02/01/18 Atenolol [Tenormin] 25 mg PO HS 02/01/18 02/01/18 Insulin Aspart [NovoLOG 18 unit SQ AC-TID 02/01/18 02/01/18 (formulary)] Insulin Detemir [Levemir] 30 unit SQ BID 02/01/18 02/01/18 hydrALAZINE HCL [Apresoline] 25 mg PO TID 02/01/18 02/01/18 Previous Rx's Medication Instructions Recorded Atorvastatin Calcium [Lipitor] 20 mg PO DAILY #30 tab 01/25/18 Sodium Bicarbonate Tab 325 mg PO TID #60 tab 01/25/18 Sulfamethox-Tmp 800-160Mg [Bactrim 1 tab PO Q12HR #28 tab 01/25/18 DS 800-160 mg] amLODIPine [Norvasc] 10 mg PO DAILY #30 tablet 01/25/18 Allergies Allergy/AdvReac Type Severity Reaction Status Date / Time aspirin Allergy Anaphylaxis Verified 02/01/18 20:10 ibuprofen [From Motrin] Allergy Anaphylaxis Verified 02/01/18 20:10 NSAIDS (Non-Steroidal Allergy Anaphylaxis Verified 02/01/18 20:10 Anti-Inflamma flu vac Allergy Anaphylaxis Uncoded 02/01/18 18:29 Review of Systems ROS Statement: Those systems with pertinent positive or pertinent negative responses have been documented in the HPI. ROS Other: All systems not noted in ROS Statement are negative. Past Medical History Past Medical History: Asthma, Diabetes Mellitus, GERD/Reflux, Skin Disorder Additional Past Medical History / Comment(s): "gallbladder functioning 30%", hx gout, woung left great toe, frequent UTI's, pt stated she is on bp and cholesterol meds as a preventative d/t her dm. neuropthy. History of Any Multi-Drug Resistant Organisms: None Reported Past Surgical History: Back Surgery, Ear Surgery, Hysterectomy, Tonsillectomy Additional Past Surgical History / Comment(s): pilonidial cyst, spinal fusion, backsx to removed spurs.renée cataracts, shots in eyes from retinal dr. Past Anesthesia/Blood Transfusion Reactions: Motion Sickness Additional Psychological History / Comment(s): . 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 No international travel. No animal exposures. Stopped tobacco smoking several years ago and denies significant alcohol use Smoking Status: Former smoker - Past Family History Mother Family Medical History: Cancer Father Additional Family Medical History / Comment(s): blood clot in arm Brother(s) Family Medical History: Cancer General Exam - General Exam Comments Initial Comments: This a well-developed well-nourished awake alert oriented 3 female General appearance: alert, in no apparent distress Head exam: Present: atraumatic, normocephalic, normal inspection Eye exam: Present: normal appearance, PERRL, EOMI. Absent: scleral icterus, conjunctival injection, periorbital swelling ENT exam: Present: mucous membranes dry Neck exam: Present: normal inspection. Absent: tenderness, meningismus, lymphadenopathy Respiratory exam: Present: decreased breath sounds. Absent: respiratory distress, wheezes, rales, rhonchi, stridor Cardiovascular Exam: Present: regular rate, normal rhythm, normal heart sounds. Absent: systolic murmur, diastolic murmur, rubs, gallop, clicks GI/Abdominal exam: Present: soft, normal bowel sounds. Absent: distended, tenderness, guarding, rebound, rigid Extremities exam: Present: full ROM, normal capillary refill, other ((4 demonstrates amputation of left great toe no evidence of any infectious process at this time). Absent: tenderness, pedal edema, joint swelling, calf tenderness Back exam: Present: normal inspection Neurological exam: Present: alert, oriented X3, CN II-XII intact Psychiatric exam: Present: normal affect, normal mood Skin exam: Present: warm, dry, intact, normal color. Absent: rash Course Vital Signs 02/01/18 02/01/18 02/01/18 18:25 19:08 20:34 Temperature 98 F Pulse Rate 50 L 54 L 53 L Respiratory 16 20 18 Rate Blood Pressure 134/93 151/70 O2 Sat by Pulse 100 96 Oximetry 02/01/18 02/01/18 20:43 21:00 Temperature Pulse Rate 58 L 79 Respiratory 18 24 Rate Blood Pressure 144/66 O2 Sat by Pulse 95 Oximetry - Reevaluation(s) Reevaluation #1: 02/01/18 20:23 Patient states she's feels that she is having difficulty breathing she does have a history of asthma and is a former smoker. Given updraft treatment examination reveals diminished breath sounds at this time no definite wheezes or crackles. Medical Decision Making - Medical Decision Making Patient still has dyspnea repeat evaluation reveals rales after the updraft. She'll be admitted for exacerbation of CHF and bronchospasm. - Lab Data Result diagrams: 02/01/18 18:27 02/01/18 18:27 Lab Results 02/01/18 02/01/18 02/01/18 Range/Units 18:24 18:27 18:27 WBC 11.0 H (3.8-10.6) k/uL RBC 3.77 L (3.80-5.40) m/uL Hgb 10.7 L (11.4-16.0) gm/dL Hct 34.3 (34.0-46.0) % MCV 90.9 (80.0-100.0) fL MCH 28.3 (25.0-35.0) pg MCHC 31.1 (31.0-37.0) g/dL RDW 14.4 (11.5-15.5) % Plt Count 469 H (150-450) k/uL Neutrophils % 67 % Lymphocytes % 24 % Monocytes % 5 % Eosinophils % 2 % Basophils % 1 % Neutrophils # 7.3 (1.3-7.7) k/uL Lymphocytes # 2.7 (1.0-4.8) k/uL Monocytes # 0.6 (0-1.0) k/uL Eosinophils # 0.2 (0-0.7) k/uL Basophils # 0.1 (0-0.2) k/uL Sodium (137-145) mmol/L Potassium (3.5-5.1) mmol/L Chloride (98-107) mmol/L Carbon Dioxide (22-30) mmol/L Anion Gap mmol/L BUN (7-17) mg/dL Creatinine (0.52-1.04) mg/dL Est GFR (CKD-EPI)AfAm (>60 ml/min/1.73 sqM) Est GFR (CKD-EPI)NonAf (>60 ml/min/1.73 sqM) Glucose (74-99) mg/dL POC Glucose (mg/dL) 114 H (75-99) mg/dL POC Glu Chemical Packager ID Calcium (8.4-10.2) mg/dL Magnesium (1.6-2.3) mg/dL Total Bilirubin (0.2-1.3) mg/dL AST (14-36) U/L ALT (9-52) U/L Alkaline Phosphatase (38-126) U/L Total Creatine Kinase 83 (30-135) U/L CK-MB (CK-2) 1.5 (0.0-2.4) ng/mL CK-MB (CK-2) Rel Index 1.8 NT-Pro-B Natriuret Pep pg/mL Total Protein (6.3-8.2) g/dL Albumin (3.5-5.0) g/dL Urine Color Urine Appearance (Clear) Urine pH (5.0-8.0) Ur Specific [place] (1.001-1.035) Urine Protein (Negative) Urine Glucose (UA) (Negative) Urine Ketones (Negative) Urine Blood (Negative) Urine Nitrite (Negative) Urine Bilirubin (Negative) Urine Urobilinogen (<2.0) mg/dL Ur Leukocyte Esterase (Negative) Urine RBC (0-5) /hpf Urine WBC (0-5) /hpf Ur Squamous Epith Cells (0-4) /hpf Uric Acid Crystals (None) /hpf Urine Bacteria (None) /hpf Hyaline Casts (0-2) /lpf Urine Mucus (None) /hpf 02/01/18 02/01/18 02/01/18 Range/Units 18:27 18:27 21:14 WBC (3.8-10.6) k/uL RBC (3.80-5.40) m/uL Hgb (11.4-16.0) gm/dL Hct (34.0-46.0) % MCV (80.0-100.0) fL MCH (25.0-35.0) pg MCHC (31.0-37.0) g/dL RDW (11.5-15.5) % Plt Count (150-450) k/uL Neutrophils % % Lymphocytes % % Monocytes % % Eosinophils % % Basophils % % Neutrophils # (1.3-7.7) k/uL Lymphocytes # (1.0-4.8) k/uL Monocytes # (0-1.0) k/uL Eosinophils # (0-0.7) k/uL Basophils # (0-0.2) k/uL Sodium 141 (137-145) mmol/L Potassium 4.3 (3.5-5.1) mmol/L Chloride 108 H (98-107) mmol/L Carbon Dioxide 17 L (22-30) mmol/L Anion Gap 16 mmol/L BUN 38 H (7-17) mg/dL Creatinine 1.19 H (0.52-1.04) mg/dL Est GFR (CKD-EPI)AfAm 54 (>60 ml/min/1.73 sqM) Est GFR (CKD-EPI)NonAf 47 (>60 ml/min/1.73 sqM) Glucose 169 H (74-99) mg/dL POC Glucose (mg/dL) (75-99) mg/dL POC Glu Chemical Packager ID Calcium 8.4 (8.4-10.2) mg/dL Magnesium 2.3 (1.6-2.3) mg/dL Total Bilirubin 0.2 (0.2-1.3) mg/dL AST 65 H (14-36) U/L ALT 94 H (9-52) U/L Alkaline Phosphatase 231 H (38-126) U/L Total Creatine Kinase (30-135) U/L CK-MB (CK-2) (0.0-2.4) ng/mL CK-MB (CK-2) Rel Index NT-Pro-B Natriuret Pep 5280 pg/mL Total Protein 6.4 (6.3-8.2) g/dL Albumin 3.5 (3.5-5.0) g/dL Urine Color Yellow Urine Appearance Turbid H (Clear) Urine pH 5.0 (5.0-8.0) Ur Specific [place] 1.015 (1.001-1.035) Urine Protein Negative (Negative) Urine Glucose (UA) Negative (Negative) Urine Ketones Negative (Negative) Urine Blood Negative (Negative) Urine Nitrite Negative (Negative) Urine Bilirubin Negative (Negative) Urine Urobilinogen <2.0 (<2.0) mg/dL Ur Leukocyte Esterase Negative (Negative) Urine RBC 1 (0-5) /hpf Urine WBC 3 (0-5) /hpf Ur Squamous Epith Cells <1 (0-4) /hpf Uric Acid Crystals Moderate H (None) /hpf Urine Bacteria Rare H (None) /hpf Hyaline Casts 3 H (0-2) /lpf Urine Mucus Rare H (None) /hpf 02/01/18 Range/Units 21:38 WBC (3.8-10.6) k/uL RBC (3.80-5.40) m/uL Hgb (11.4-16.0) gm/dL Hct (34.0-46.0) % MCV (80.0-100.0) fL MCH (25.0-35.0) pg MCHC (31.0-37.0) g/dL RDW (11.5-15.5) % Plt Count (150-450) k/uL Neutrophils % % Lymphocytes % % Monocytes % % Eosinophils % % Basophils % % Neutrophils # (1.3-7.7) k/uL Lymphocytes # (1.0-4.8) k/uL Monocytes # (0-1.0) k/uL Eosinophils # (0-0.7) k/uL Basophils # (0-0.2) k/uL Sodium (137-145) mmol/L Potassium (3.5-5.1) mmol/L Chloride (98-107) mmol/L Carbon Dioxide (22-30) mmol/L Anion Gap mmol/L BUN (7-17) mg/dL Creatinine (0.52-1.04) mg/dL Est GFR (CKD-EPI)AfAm (>60 ml/min/1.73 sqM) Est GFR (CKD-EPI)NonAf (>60 ml/min/1.73 sqM) Glucose (74-99) mg/dL POC Glucose (mg/dL) 127 H (75-99) mg/dL POC Glu Chemical Packager ID Adela Paniagua Calcium (8.4-10.2) mg/dL Magnesium (1.6-2.3) mg/dL Total Bilirubin (0.2-1.3) mg/dL AST (14-36) U/L ALT (9-52) U/L Alkaline Phosphatase (38-126) U/L Total Creatine Kinase (30-135) U/L CK-MB (CK-2) (0.0-2.4) ng/mL CK-MB (CK-2) Rel Index NT-Pro-B Natriuret Pep pg/mL Total Protein (6.3-8.2) g/dL Albumin (3.5-5.0) g/dL Urine Color Urine Appearance (Clear) Urine pH (5.0-8.0) Ur Specific [place] (1.001-1.035) Urine Protein (Negative) Urine Glucose (UA) (Negative) Urine Ketones (Negative) Urine Blood (Negative) Urine Nitrite (Negative) Urine Bilirubin (Negative) Urine Urobilinogen (<2.0) mg/dL Ur Leukocyte Esterase (Negative) Urine RBC (0-5) /hpf Urine WBC (0-5) /hpf Ur Squamous Epith Cells (0-4) /hpf Uric Acid Crystals (None) /hpf Urine Bacteria (None) /hpf Hyaline Casts (0-2) /lpf Urine Mucus (None) /hpf - EKG Data -: EKG Interpreted by Pr EKG shows normal: sinus rhythm (Sinus cardia rate of 52 SD interval 204 QRS 88 QT since QTC of 522/45 nonspecific inferior changes.) - Radiology Data Radiology results: report reviewed (Imaging was reviewed there is some suspected interstitial pulmonary edema with a smaller pleural effusion), image reviewed Critical Care Time Critical Care Time: Yes Critical Care Time: 31 minutes of critical care time which includes initial presentation with history physical labs x-rays discussed with paramedics regarding the initial presentation and findings as well as monitoring the EMS run several reevaluation the patient discussed with the patient family regarding findings discussed with the main physician admission orders and documentation of the above Disposition Clinical Impression: Altered mental status, Hypoglycemia, Congestive heart failure (CHF), Bronchospasm Disposition: ADMITTED IP TO THIS HOSP Condition: Stable Referrals: Norman Jewell MD [Primary Care Provider] - 1-2 days
[2018-02-01 18:36] LABS: Glucose,Whole Blood 114 mg/dL (75-99)
[2018-02-01 18:40] LABS: Basophils # (A) 0.1 k/uL (0-0.2); Basophils % (A) 1 %; Eosinophils # (A) 0.2 k/uL (0-0.7); Eosinophils % (A) 2 %; HCT 34.3 % (34.0-46.0); HGB 10.7 gm/dL (11.4-16.0); Lymphocytes # (A) 2.7 k/uL (1.0-4.8); Lymphocytes % (A) 24 %; MCH 28.3 pg (25.0-35.0); MCHC 31.1 g/dL (31.0-37.0); MCV 90.9 fL (80.0-100.0); Monocytes # (A) 0.6 k/uL (0-1.0); Monocytes % (A) 5 %; Neutrophils # (A) 7.3 k/uL (1.3-7.7); Neutrophils % (A) 67 %; Platelet Count 469 k/uL (150-450); RBC 3.77 m/uL (3.80-5.40); RDW 14.4 % (11.5-15.5)
[2018-02-01 18:51] LABS: Albumin 3.5 g/dL (3.5-5.0); Calcium 8.4 mg/dL (8.4-10.2); Magnesium 2.3 mg/dL (1.6-2.3); Potassium 4.3 mmol/L (3.5-5.1); Total Bilirubin 0.2 mg/dL (0.2-1.3); Total Protein 6.4 g/dL (6.3-8.2)
[2018-02-01 19:04] LABS: Creatine Kinase MB 1.5 ng/mL (0.0-2.4)
--- NOTE | 2018-02-01 19:07 | XR ---
EXAMINATION: XR chest 2V DATE AND TIME: 02/01/2018 6:49 PM ORDERING PROVIDER: Santos Rodríguez MD CLINICAL INDICATION: cough TECHNIQUE: PA and lateral COMPARISON: 09/09/2013 DESCRIPTION: The overlying soft tissues are prominent. Notwithstanding that factor, and given the relatively low lung inflation at the moment of x-ray expos ure, the lungs still appear to contain a fine interstitial pattern of pulmonary edema and there is a small right pleural effusion present, best seen posteriorly on the lateral radiograph. There are no pulmonary consolidations. The pleural spaces are otherwise negative. The cardiac silhouette is not enlarged. The mediastinal and pleural silhouettes are unremarkable. The skeletal structures are intact without focal findings. IMPRESSION: SUSPECT MILD INTERSTITIAL PHASE PULMONARY EDEMA WITH A SMALLER PLEURAL EFFUSION.
[2018-02-01] MEDS ORDERED: IPRATROPIUM-ALBUTEROL 3 ML NEB INHALATION STA (20:23)
[2018-02-01] MEDS ORDERED: ACETAMINOPHEN TAB 500 MG TAB PO STA (21:18)
[2018-02-01 21:30] LABS: Appearance,Urine Turbid (Clear); Bacteria,Urine Rare /hpf; Bilirubin,Urine Negative (Negative); Blood,Urine Negative (Negative); Color,Urine Yellow; Glucose,Urine (UA) Negative (Negative); Hyaline Casts,Urine 3 /lpf (0-2); Ketones,Urine Negative (Negative); Leukocyte Esterase,Urine Negative (Negative); Mucus,Urine Rare /hpf; Nitrite,Urine Negative (Negative); Protein,Urine Negative (Negative); RBC,Urine 1 /hpf (0-5); Specific Gravity,Urine 1.015 (1.001-1.035); Squamous Epithelial Cell,Urine <1 /hpf (0-4); Uric Acid Crystals,Urine Moderate /hpf; Urobilinogen,Urine <2.0 mg/dL (<2.0); WBC,Urine 3 /hpf (0-5)
[2018-02-01 21:39] LABS: Glucose,Whole Blood 127 mg/dL (75-99)
[2018-02-01] MEDS ORDERED: FUROSEMIDE 10 MG/ML 4 ML VIAL IV STA (21:42)
[2018-02-01 23:08] VITALS: BMI 36.1
[2018-02-01] MEDS: SODIUM BICARBONATE TAB 650 MG TAB PO SCH (23:28)
[2018-02-01] MEDS: hydrALAZINE HCL 25 MG TAB PO SCH (23:28)
[2018-02-01] MEDS ORDERED: ACETAMINOPHEN TAB 325 MG TAB PO PRN (23:36)
[2018-02-01] MEDS: IPRATROPIUM-ALBUTEROL 3 ML NEB INHALATION SCH (23:43)
[2018-02-02] MEDS: IPRATROPIUM-ALBUTEROL 3 ML NEB INHALATION SCH ×5 (03:10→20:36)
[2018-02-02 06:30] LABS: Glucose,Whole Blood 136 mg/dL (75-99)
[2018-02-02] MEDS: INSULIN ASPART 100 UNIT/ML 1 ML 10 ML VIAL SQ SCH ×3 (07:04→16:56)
[2018-02-02] MEDS: FUROSEMIDE 10 MG/ML 4 ML VIAL IV SCH ×3 (07:55→22:25)
[2018-02-02] MEDS: PANTOPRAZOLE 40 MG TABLET PO SCH ×2 (07:55→16:59)
[2018-02-02] MEDS: hydrALAZINE HCL 25 MG TAB PO SCH ×3 (08:01→20:11)
[2018-02-02] MEDS: amLODIPine 10 MG TAB PO SCH (08:01)
[2018-02-02] MEDS: ATORVASTATIN 20 MG TAB PO SCH (08:01)
[2018-02-02] MEDS: CHOLECALCIFEROL 1,000 UNIT TAB PO SCH (08:01)
[2018-02-02] MEDS: SODIUM BICARBONATE TAB 650 MG TAB PO SCH ×3 (08:02→21:00)
[2018-02-02] MEDS: SULFAMETHOX-TMP 800-160MG 1 EACH TAB PO SCH ×2 (08:02→21:00)
[2018-02-02] MEDS ORDERED: INSULIN DETEMIR 100 UNIT/ML 10 ML VIAL SQ SCH (09:00)
[2018-02-02 09:20] LABS: Glucose,Whole Blood 227 mg/dL (75-99)
[2018-02-02 12:19] LABS: Glucose,Whole Blood 235 mg/dL (75-99)
[2018-02-02] MEDS ORDERED: CALCIUM CARBONATE 500 MG CHEWABLE PO PRN (12:28)
--- NOTE | 2018-02-02 13:45 | HP ---
HISTORY AND PHYSICAL DATE OF ADMISSION: February 01, 2018. PRESENTING COMPLAINT: Short of breath, confused. HISTORY OF PRESENTING COMPLAINT: This is a very pleasant 61-year-old patient who was just discharged from the hospital on 01/25/18. The patient at that time was admitted with acute left big toe osteomyelitis and underwent amputation of the same by Dr. Turk. Cultures did grow and the patient was discharged on Bactrim DS by Dr. Cadena. The patient patient's blood pressures were uncontrolled and so was her diabetes and insulin was adjusted accordingly. The patient's other chronic stable medical conditions include chronic kidney disease, peripheral neuropathy, intermittent asthma, and essential hypertension. The patient's came home yesterday, found the patient to be confused on the floor, short of breath. Sugars were found to be down in the 50s. The patient in the ER, found to be in congestive heart failure, was put on IV Lasix. The patient did follow up with Dr. Jewell. Blood pressure is running a bit on the lower side, hence the dose of hydralazine was cut back. The patient does feel a bit weak and tired this morning. Denies any fever. The patient did see Dr. Turk in the office and her toe incision wound was healing well. REVIEW OF SYSTEMS: Constitutional: Tired. HEENT none. Respiratory: Short of breath. Cardiovascular: No chest pain. Gastrointestinal: Occasional heartburn. none. Musculoskeletal none. Dermatological: Left big toe wound healing well. Psychiatry as above. Neurological: Numbness and tingling in the feet. PAST MEDICAL HISTORY: Past medical history of left big toe osteomyelitis, status post amputation, essential hypertension, intermittent asthma, diabetes mellitus type 2, peripheral neuropathy secondary to diabetes, chronic kidney stage III, frequent UTIs. PAST SURGICAL HISTORY: Back surgery, ear surgery, hysterectomy, tonsillectomy, spinal fusion, back surgery, spurs were removed, bilateral cataract surgery, shortened eye for retinal detachment, left big toe amputation. SOCIAL HISTORY: Patient smoked for about 40 years 1 pack a day, stopped in 2005. . FAMILY HISTORY: Blood clot in the arm, cancer type unknown. HOME MEDICATIONS: 1. Hydralazine 25 mg p.o. t.i.d. 2. Norvasc 10 mg a day. 3. Bactrim DS 1 tab p.o. q.12h. 4. Sodium bicarb 325 p.o. t.i.d. 5. Omeprazole 20 mg b.i.d. 6. Levemir 30 units subcu b.i.d. 7. NovoLog 18 units subcu t.i.d. 8. Vitamin D3 2000 units p.o. daily. 9. Lipitor 20 mg p.o. daily. 10.Tenormin 25 p.o. q.h.s. ALLERGIES: TO ASPIRIN, NSAIDS, FLOMAX. PHYSICAL EXAMINATION: Vital signs on presentation, temperature 98, pulse 50, respirations 16, blood pressure 134/93, pulse ox 100% on 2 L. GENERAL APPEARANCE: Well built. BMI 36.1. Lying in bed, tired appearing. Eyes: Pupils are equal. Conjunctivae normal. HEENT: External appearance of nose and ears normal, oral cavity normal. Neck JVD not raised. Mass not palpable. Respiratory effort was lungs decreased breath sounds, cardiovascular 1st and 2nd sounds normal. Minimal edema. ABDOMEN: Soft, nontender. Liver and spleen not palpable. Lymphatic: No lymph nodes palpable in the neck and axilla. PSYCHIATRY: Alert and oriented times three. Mood and affect normal. Neurological: Pupils equal. Cranial nerves grossly intact. Power and sensation slightly decreased distally. Musculoskeletal: Left big toe dressing in place. INVESTIGATIONS: White count 11, hemoglobin 10.7, potassium 4.3, BUN 38, creatinine 1.19, glucose 169. ProBNP 520. Chest x-ray shows evidence of pulmonary edema. ASSESSMENT: 1. Acute congestive heart failure, ejection fraction not known. 2. Recent left big toe osteomyelitis, growing Stenotrophomonas maltophilia on Bactrim DS. 3. Essential hypertension. 4. Intermittent asthma. 5. Diabetes mellitus type 2, chronically on insulin. 6. Episode of hypoglycemia at home. 7. Peripheral neuropathy from diabetes type 2. 8. Chronic kidney stage 3 from diabetic nephrosclerosis. PLAN: Patient is put on IV Lasix. 2D echo will be done. At the present time we will cut back the dose of Levemir to 25 units twice a day at night and give the Humalog, drop it down to 14 units 3 times a day with meals. Keep a close eye on patient's heart rate because patient destined to become bradycardic. Cardiology will be consulted for the same. We will do a 2-D echocardiogram. Care was discussed with the patient and . Questions were answered. Copy to Dr. Jewell. JAMISON / YENNIFERN: [id number] /
[2018-02-02 16:25] LABS: Glucose,Whole Blood 74 mg/dL (75-99)
[2018-02-02 20:42] LABS: Glucose,Whole Blood 182 mg/dL (75-99)
[2018-02-02] MEDS: INSULIN DETEMIR 100 UNIT/ML 10 ML VIAL SQ SCH (20:59)
[2018-02-02] MEDS ORDERED: ATENOLOL 25 MG TAB PO SCH (21:00)
[2018-02-03 06:12] LABS: Glucose,Whole Blood 79 mg/dL (75-99)
[2018-02-03] MEDS: INSULIN ASPART 100 UNIT/ML 1 ML 10 ML VIAL SQ SCH ×3 (06:23→17:34)
[2018-02-03 07:00] LABS: Calcium 9.6 mg/dL (8.4-10.2); Potassium 4.8 mmol/L (3.5-5.1)
[2018-02-03] MEDS: PANTOPRAZOLE 40 MG TABLET PO SCH ×2 (07:42→17:34)
[2018-02-03] MEDS: FUROSEMIDE 10 MG/ML 4 ML VIAL IV SCH ×3 (07:42→23:22)
[2018-02-03] MEDS: IPRATROPIUM-ALBUTEROL 3 ML NEB INHALATION SCH ×5 (08:33→20:04)
[2018-02-03] MEDS: amLODIPine 10 MG TAB PO SCH (08:44)
[2018-02-03] MEDS: hydrALAZINE HCL 25 MG TAB PO SCH (08:44)
[2018-02-03] MEDS: CHOLECALCIFEROL 1,000 UNIT TAB PO SCH (08:44)
[2018-02-03] MEDS: SULFAMETHOX-TMP 800-160MG 1 EACH TAB PO SCH (08:44)
[2018-02-03] MEDS: ATORVASTATIN 20 MG TAB PO SCH (08:44)
[2018-02-03] MEDS: SODIUM BICARBONATE TAB 650 MG TAB PO SCH ×3 (08:44→20:43)
[2018-02-03 09:24] LABS: Glucose,Whole Blood 199 mg/dL (75-99)
[2018-02-03] MEDS: INSULIN DETEMIR 100 UNIT/ML 10 ML VIAL SQ SCH ×2 (09:36→21:23)
--- NOTE | 2018-02-03 11:04 | P.CRDCN ---
History of Present Illness Consult date: 02/03/18 Requesting physician: Bravo Mcconnell Consult reason: congestive heart failure Chief complaint: Mental status changes, mild shortness of breath History of present illness: This is a pleasant 67-year-old female with history of hypertension, diabetes, hyperlipidemia, who was just recently discharged from the hospital, after being admitted with left toe osteomyelitis, she underwent amputation of the toe by Dr. Turk. During that hospitalization, patient was noted to have significantly elevated blood pressures, primary care physician had initiated her blood pressure medications. Patient does have history of smoking in the past , she stopped smoking in 2005, has history also of a chronic kidney disease and mild asthma. Patient presents to the hospital on this occasion with mental status changes, she states that this occurred on Sunday evening, her blood sugar was checked at that time and came back to be significantly low. According to the patient, she also states that for the past few days she has felt herself to be short of breath. This is the first time cardiology is seeing the patient, she denies any history of myocardial infarction in the past. Denies ever being told to have congestive cardiac failure. EKG on admission here showed a sinus bradycardia with a heart rate in the 50s. Chest x -ray showed mild interstitial pulmonary edema with pleural effusion. White blood cell count 11.0, hemoglobin 10.7, sodium 141, potassium 4.3, BUN 38, creatinine 1.1, this morning BUN is 47 and creatinine 1.8. AST 65, ALT 94, alk phos 231, BNP level 5280. Blood pressure on admission here 134/90, heart rate in the 50s, 100% on 2 L of oxygen. Patient states that she was started on Apresoline during this most recent admission, she did not take it at home because it made her feel extremely shaky. Past Medical History Past Medical History: Asthma, Diabetes Mellitus, GERD/Reflux, Skin Disorder Additional Past Medical History / Comment(s): "gallbladder functioning 30%", hx gout, woung left great toe, frequent UTI's, pt stated she is on bp and cholesterol meds as a preventative d/t her dm. neuropthy. History of Any Multi-Drug Resistant Organisms: None Reported Past Surgical History: Back Surgery, Ear Surgery, Hysterectomy, Tonsillectomy Additional Past Surgical History / Comment(s): pilonidial cyst, spinal fusion, backsx to removed spurs.renée cataracts, shots in eyes from retinal dr. Past Anesthesia/Blood Transfusion Reactions: Motion Sickness Past Psychological History: No Psychological Hx Reported Additional Psychological History / Comment(s): . 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 No international travel. No animal exposures. Stopped tobacco smoking several years ago and denies significant alcohol use Smoking Status: Former smoker Past Alcohol Use History: Occasional Additional Past Alcohol Use History / Comment(s): started smoking age 15, 1 ppd , quit 2005 Past Drug Use History: None Reported - Past Family History Mother Family Medical History: Cancer Father Additional Family Medical History / Comment(s): blood clot in arm Brother(s) Family Medical History: Cancer Medications and Allergies Home Medications Medication Instructions Recorded Confirmed Type Omeprazole 20 mg PO BID 08/22/16 02/01/18 History Cholecalciferol [Vitamin D3] 2,000 unit PO DAILY 01/16/18 02/01/18 History Atorvastatin Calcium [Lipitor] 20 mg PO DAILY #30 tab 01/25/18 02/01/18 Rx Sodium Bicarbonate Tab 325 mg PO TID #60 tab 01/25/18 02/01/18 Rx Sulfamethox-Tmp 800-160Mg [Bactrim 1 tab PO Q12HR #28 tab 01/25/18 02/01/18 Rx DS 800-160 mg] amLODIPine [Norvasc] 10 mg PO DAILY #30 tablet 01/25/18 02/01/18 Rx Atenolol [Tenormin] 25 mg PO HS 02/01/18 02/01/18 History Insulin Aspart [NovoLOG 18 unit SQ AC-TID 02/01/18 02/01/18 History (formulary)] Insulin Detemir [Levemir] 30 unit SQ BID 02/01/18 02/01/18 History hydrALAZINE HCL [Apresoline] 25 mg PO TID 02/01/18 02/01/18 History Allergies Allergy/AdvReac Type Severity Reaction Status Date / Time aspirin Allergy Anaphylaxis Verified 02/01/18 20:10 ibuprofen [From Motrin] Allergy Anaphylaxis Verified 02/01/18 20:10 NSAIDS (Non-Steroidal Allergy Anaphylaxis Verified 02/01/18 20:10 Anti-Inflamma flu vac Allergy Anaphylaxis Uncoded 02/01/18 18:29 Physical Exam Vitals: Vital Signs Temp Pulse Pulse Resp BP Pulse Ox 02/03/18 08:45 82 16 02/03/18 08:34 85 14 95 02/03/18 04:00 97.7 F 70 16 114/52 97 02/03/18 00:00 97.6 F 70 16 116/67 95 02/02/18 20:50 70 02/02/18 20:36 68 95 02/02/18 20:00 97.3 F L 77 16 128/70 94 L 02/02/18 16:00 98 F 75 18 119/57 95 02/02/18 15:53 68 02/02/18 15:42 68 02/02/18 12:00 97.9 F 64 65 18 129/59 93 L 02/02/18 11:51 64 Intake and Output 02/02/18 02/03/18 02/03/18 22:59 06:59 14:59 Intake Total 0 240 Output Total 300 Balance -300 240 Intake: Oral 0 240 Output: Urine 300 Other: Voiding Method Toilet Toilet # Voids 1 1 # Bowel Movements 2 Weight 83.915 kg 83.6 kg PHYSICAL EXAMINATION: HEENT: Head is atraumatic, normocephalic. Pupils equal, round. Neck is supple. There is elevated jugular venous pressure. Bilateral carotid bruits are audible HEART EXAMINATION: Heart S1 S2 1 systolic murmur is heard CHEST EXAMINATION: Lungs are clear with diminished air entry to the bases. ABDOMEN: Soft, nontender. Bowel sounds are heard. No organomegaly noted. EXTREMITIES: 2+ peripheral pulses with no evidence of peripheral edema and no calf tenderness noted. Status post left great toe amputation NEUROLOGIC patient is awake, alert and oriented -3. . Results 02/01/18 18:27 02/03/18 06:23 Comprehensive Metabolic Panel 02/03/18 Range/Units 06:23 Sodium 142 (137-145) mmol/L Potassium 4.8 (3.5-5.1) mmol/L Chloride 102 (98-107) mmol/L Carbon Dioxide 28 (22-30) mmol/L BUN 47 H (7-17) mg/dL Creatinine 1.80 H (0.52-1.04) mg/dL Glucose 69 L (74-99) mg/dL Calcium 9.6 (8.4-10.2) mg/dL Current Medications Generic Name Dose Route Start Last Admin Trade Name Freq PRN Reason Stop Dose Admin Acetaminophen 650 mg 02/01/18 23:36 Tylenol Tab PO Q6HR PRN Fever and/ or Pain Albuterol/Ipratropium 3 ml 02/03/18 08:00 02/03/18 08:34 Duoneb 0.5 Mg-3 Mg/3 Ml Soln INHALATION 3 ml RT-QID PREET Administration Amlodipine Besylate 10 mg 02/02/18 09:00 02/03/18 08:44 Norvasc PO 10 mg DAILY PREET Administration Atorvastatin Calcium 20 mg 02/02/18 09:00 02/03/18 08:44 Lipitor PO 20 mg DAILY [facility] Administration Calcium Carbonate/Glycine 500 mg 02/02/18 12:28 02/02/18 12:47 Tums PO 500 mg TID PRN Administration Heartburn Cholecalciferol 2,000 unit 02/02/18 09:00 02/03/18 08:44 Vitamin D3 PO 2,000 unit DAILY [facility] Administration Furosemide 40 mg 02/02/18 08:00 02/03/18 07:42 Lasix IV 40 mg Q8H [facility] Administration Hydralazine HCl 25 mg 02/01/18 22:00 02/03/18 08:44 Apresoline PO Not Given TID [facility] Insulin Aspart 14 unit 02/02/18 17:30 02/03/18 06:23 Novolog SQ Not Given AC-TID [facility] Insulin Detemir 25 unit 02/02/18 21:00 02/03/18 09:36 Levemir SQ 25 unit Q12HR [facility] Administration Pantoprazole Sodium 40 mg 02/02/18 07:30 02/03/18 07:42 Protonix PO 40 mg AC-BID [facility] Administration Sodium Bicarbonate 325 mg 02/01/18 22:00 02/03/18 08:44 Sodium Bicarbonate Tab PO 325 mg TID [facility] Administration Trimethoprim/Sulfamethoxazole 1 each 02/02/18 09:00 02/03/18 08:44 Bactrim Ds PO 1 each Q12HR [facility] Administration Intake and Output 02/02/18 02/03/18 02/03/18 22:59 06:59 14:59 Intake Total 0 240 Output Total 300 Balance -300 240 Intake: Oral 0 240 Output: Urine 300 Other: Voiding Method Toilet Toilet # Voids 1 1 # Bowel Movements 2 Weight 83.915 kg 83.6 kg 02/01/18 18:27 02/03/18 06:23 EKG Interpretations (text) EKG shows a sinus bradycardia with inferior Q waves. Assessment and Plan Plan: Assessment and plan #1 mental status changes, likely secondary to hypoglycemia #2 congestive cardiac failure, LV function unknown #3 hypertension #4 diabetes #5 hyperlipidemia #6 peripheral neuropathy #7 recent left great toe amputation with osteomyelitis, growing stenotrophomonas maltophia, on antibiotics #8 chronic kidney disease Plan We will obtain an echocardiogram with Doppler study. Patient has been resumed here on Apresoline, which she refuses to take because she feels very shaky on it. We will discontinue that at this time. Monitor renal function closely, it is up to 1.8 today her creatinine, she is on IV Lasix. Patient would benefit from being on an SCAR inhibitor with her diabetes, however her creatinine is 1.8 today and potassium. Atenolol was held because of bradycardia, her heart rate this morning is in the 80s, we will check a free T4 and TSH level as the patient does have history of hypothyroidism in the past and used to take Synthroid. She is currently on Norvasc for hypertension, view the echocardiogram with Doppler study to assess the patient's LV function. Patient' s will then be made. DNP note has been reviewed, I agree with a documented findings and plan of care. Patient was seen and examined.
[2018-02-03 11:22] LABS: Glucose,Whole Blood 220 mg/dL (75-99)
--- NOTE | 2018-02-03 13:58 | PN ---
PROGRESS NOTE DATE OF SERVICE: February 03, 2018. PRESENTING COMPLAINT: Short of breath. INTERVAL HISTORY: This patient was just discharged from the hospital following left big toe osteomyelitis amputation. On Bactrim for the same. Presented with CHF. Breathing is getting a bit better. IV Lasix. The patient's sugar this morning was 69. REVIEW OF SYSTEMS: Done for constitutional, cardiovascular, GI, pulmonary and relevant findings as above. CURRENT MEDICATIONS: Include IV Lasix, Bactrim DS. PHYSICAL EXAMINATION: Temperature 98, pulse 65, respiratory 18, blood pressure 120/60, pulse ox 94% on room air. General appearance: Lying in bed, tired-appearing. Eyes pupils equal. Conjunctivae normal. HEENT: External appearance of nose and ears normal. Oral cavity normal. Neck JVD unable to assess. Mass not palpable. Respiratory effort normal. Lungs slightly decreased breath sounds. Cardiovascular: 1st and 2nd sounds normal. Minimal edema. ABDOMEN: Soft, nontender. Liver and spleen not palpable. Psychiatry: Alert and oriented x3. Mood and affect normal. INVESTIGATIONS: Potassium 4.8, BUN 47, creatinine 1.80. Accu-Cheks 79, 199, 120. ASSESSMENT: 1. Acute congestive heart failure ejection fraction not known with clinical improvement. 2. Recent left big toe osteomyelitis, growing Stenotrophomonas maltophilia on Bactrim DS. 3. Essential hypertension. 4. Intermittent asthma. 5. Diabetes mellitus type 2, chronically on insulin. 6. Episode of hypoglycemia at home. 7. Peripheral neuropathy from diabetes type 2. 8. 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 9. Acute renal failure from patient being on diuretics and also patient is on Bactrim. PLAN: We will get a nephrology opinion. We will cut back on the Levemir to 22 units with twice a day and also scale back on the NovoLog. Keep a close eye on the electrolytes. We will also change patient Bactrim DS to Levaquin. will change. MMODL / IJN: [id number] /
--- NOTE | 2018-02-03 14:26 | ECHOF ---
Referral Reason:chf MEASUREMENTS -------- HEIGHT: 152.4 cm WEIGHT: 83.9 kg BP: 133/60 RVIDd: 3.1 cm (< 3.3) IVSd: 1.9 cm (0.6 - 1.1) LVIDd: 3.9 cm (3.9 - 5.3) LVPWd: 1.2 cm (0.6 - 1.1) IVSs: 1.9 cm LVIDs: 1.8 cm LVPWs: 2.0 cm Ao Diam: 3.0 cm (2.0 - 3.7) AV Cusp: 1.8 cm (1.5 - 2.6) LA Diam: 3.4 cm (2.7 - 3.8) MV EXCURSION: 5.900 mm (> 18.000) MV EF SLOPE: 109 mm/s (70 - 150) EPSS: 0.5 cm MV E Dakota: 1.10 m/s MV DecT: 259 ms MV A [place]: 0.68 m/s MV E/A Ratio: 1.61 RAP: 5.00 mmHg RVSP: 30.57 mmHg FINDINGS -------- Sinus rhythm. This was a technically difficult study with suboptimal views. The left ventricular size is normal. There is moderate concentric left ventricular hypertrophy. O verall left ventricular systolic function is normal with, an EF between 55 - 60 %. The right ventricle is normal in size and function. The left atrium is normal in size. The right atrium is normal in size. Lumason used Aortic valve is trileaflet and is mildly thickened. The mitral valve leaflets are mildly thickened. Mild mitral regurgitation is present. Trace tricuspid regurgitation present. The right ventricular systolic pressure, as measured by Dopp ler, is 30.57mmHg. Pulmonic valve appears structurally normal. The aortic root size is normal. The pericardium is normal. CONCLUSIONS -------- 1. Sinus rhythm. 2. This was a technically difficult study with suboptimal views. 3. The left ventricular size is normal. 4. There is moderate concentric left ventricular hypertrophy. 5. Overall left ventricular systolic function is normal with, an EF between 55 - 60 %. 6. The right ventricle is normal in size and function. 7. The left atrium is normal in size. 8. The right atrium is normal in size. 9. Lumason used 10. Aortic valve is trileaflet and is mildly thickened. 11. The mitral valve leaflets are mildly thickened. 12. Mild mitral regurgitation is present. 13. Trace tricuspid regurgitation present. 14. The right ventricular systolic pressure, as measured by Doppler, is 30.57mmHg. 15. Pulmonic valve appears structurally normal. 16. The aortic root size is normal. 17. The pericardium is normal. INDUSTRIAL HYGENIST: Marizol Hager RDCS
[2018-02-03 16:24] LABS: Glucose,Whole Blood 237 mg/dL (75-99)
[2018-02-03 19:06] VITALS: RESP 18
[2018-02-03] MEDS: LEVOFLOXACIN 250 MG TAB PO SCH (20:42)
[2018-02-03 21:09] LABS: Glucose,Whole Blood 199 mg/dL (75-99)
[2018-02-04 06:02] LABS: Glucose,Whole Blood 122 mg/dL (75-99)
[2018-02-04 06:56] LABS: Calcium 9.7 mg/dL (8.4-10.2); Potassium 5.1 mmol/L (3.5-5.1)
[2018-02-04] MEDS: INSULIN ASPART 100 UNIT/ML 1 ML 10 ML VIAL SQ SCH ×3 (06:59→17:03)
[2018-02-04] MEDS: FUROSEMIDE 10 MG/ML 4 ML VIAL IV SCH ×3 (08:04→22:38)
[2018-02-04] MEDS: ATORVASTATIN 20 MG TAB PO SCH (08:04)
[2018-02-04] MEDS: CHOLECALCIFEROL 1,000 UNIT TAB PO SCH (08:05)
[2018-02-04] MEDS: PANTOPRAZOLE 40 MG TABLET PO SCH ×2 (08:05→17:03)
[2018-02-04] MEDS: SODIUM BICARBONATE TAB 650 MG TAB PO SCH ×3 (08:05→20:51)
[2018-02-04] MEDS: amLODIPine 10 MG TAB PO SCH (08:05)
[2018-02-04] MEDS: INSULIN DETEMIR 100 UNIT/ML 10 ML VIAL SQ SCH ×2 (08:05→21:10)
[2018-02-04] MEDS: IPRATROPIUM-ALBUTEROL 3 ML NEB INHALATION SCH ×4 (08:47→21:08)
[2018-02-04 11:42] LABS: Glucose,Whole Blood 113 mg/dL (75-99)
--- NOTE | 2018-02-04 11:44 | P.PN ---
Subjective Progress Note Date: 02/04/18 This is a pleasant 67-year-old female with known history of hypertension, diabetes, hyperlipidemia, who recently presented to the hospital after recent admission with osteomyelitis, at which time she underwent a toe amputation by Dr. Turk. She presented to the hospital on this occasion with symptoms of mental status changes, her blood sugars were checked prior to coming to the hospital, cardiology got involved in the care of this patient because of symptoms of progressively worsening shortness of breath, patient was also noted to be bradycardic on admission. She was initiated on IV Lasix, diuresed well on IV Lasix, however the weight does not reflect that this morning. Sodium 141, potassium 5.1, BUN 40, creatinine 1.6. Echocardiogram with Doppler study was performed which revealed an ejection fraction of 55-60%. Blood Pressure this morning 118/60, heart rate in the 70s, 94% on room air. Objective - Vital Signs Vital signs: Vital Signs Temp 97 F L 02/04/18 08:04 Pulse 86 02/04/18 09:00 Resp 18 02/04/18 08:04 BP 137/63 02/04/18 08:04 Pulse Ox 97 02/04/18 04:00 Intake & Output 02/03/18 02/04/18 02/04/18 18:59 06:59 18:59 Intake Total 720 240 Output Total 1100 600 Balance -380 -600 240 Weight 88.2 kg Intake: Oral 720 240 Output: Urine 1100 600 Other: Voiding Method Toilet Toilet # Voids 1 - Exam PHYSICAL EXAMINATION: HEENT: Head is atraumatic, normocephalic. Pupils equal, round. Neck is supple. There is no elevated jugular venous pressure. HEART EXAMINATION: Heart S1 and S2 systolic murmur is heard. CHEST EXAMINATION: Lungs are clear to auscultation and precussion. No chest wall tenderness is noted on palpation or with deep breathing. ABDOMEN: Soft, nontender. Bowel sounds are heard. No organomegaly noted. EXTREMITIES: 2+ peripheral pulses with no evidence of peripheral edema and no calf tenderness noted. Status post left great toe amputation. NEUROLOGIC patient is awake, alert and oriented -3. . - Labs CBC & Chem 7: 02/01/18 18:27 02/04/18 06:05 Labs: Abnormal Lab Results - Last 24 Hours (Table) 02/03/18 02/03/18 02/04/18 Range/Units 16:13 21:07 06:01 BUN (7-17) mg/dL Creatinine (0.52-1.04) mg/dL Glucose (74-99) mg/dL POC Glucose (mg/dL) 237 H 199 H 122 H (75-99) mg/dL 02/04/18 Range/Units 06:05 BUN 40 H (7-17) mg/dL Creatinine 1.62 H (0.52-1.04) mg/dL Glucose 108 H (74-99) mg/dL POC Glucose (mg/dL) (75-99) mg/dL Assessment and Plan Plan: Assessment and plan #1 mental status changes, likely secondary to hypoglycemia #2 congestive cardiac failure, diastolic, acute on chronic #3 hypertension #4 diabetes #5 hyperlipidemia #6 peripheral neuropathy #7 recent left great toe amputation with osteomyelitis, growing stenotrophomonas maltophia, on antibiotics #8 chronic kidney disease Plan Echocardiogram with Doppler study was performed which revealed a normal left ventricular systolic function. We'll also check a TSH which came back to be normal. We will continue IV Lasix for 24 hours, check lytes BUN and creatinine in the morning. DNP note has been reviewed, I agree with a documented findings and plan of care. Patient was seen and examined.
--- NOTE | 2018-02-04 13:21 | CONS ---
CONSULTATION REASON FOR CONSULT: Renal failure. HISTORY OF PRESENT ILLNESS: Patient is a 67-year-old female who was admitted to the hospital with complaints of increased shortness of breath. The patient recently had left big toe amputation. She was hospitalized with osteomyelitis prior to that and was discharged from the hospital on 01/25/2018. The patient was discharged on Bactrim. On this admission, patient was also confused and her blood sugar was low, it was down in the 50s. She was volume overloaded and has been diuresed. Serum creatinine was 1.19 on 02/01/2018, and it went up to 1.8 yesterday and today it is at 1.6. Prior creatinine was 0.9 on 01/25/2018. Lasix is currently at 40 mg q.8 hours IV. The Bactrim is now discontinued. Her creatinine is down to 1.6 today. The patient has been voiding well and she is not hypotensive. PAST MEDICAL HISTORY: Significant for peripheral vascular disease, type 2 diabetes, hypertension, recent left big toe osteomyelitis, status post amputation, hypercholesteremia, neuropathy, gastroesophageal reflux disease. PAST SURGICAL HISTORY: Surgery for pilonidal cyst, spinal fusion, back surgery, cataracts, hysterectomy, tonsillectomy, recent left big toe amputation. SMOKING: Patient is a former smoker. No history of drug abuse or alcohol abuse. MEDICATIONS: Medications at home prior to admission include Lipitor, vitamin D3, omeprazole, sodium bicarb, Bactrim, Norvasc, Tenormin, insulin, hydralazine. ALLERGIES: Allergies include MOTRIN, OTHER NSAIDS, FLU VACCINE and ASPIRIN. REVIEW OF SYSTEMS: As per HPI, other systems negative. PHYSICAL EXAMINATION: On examination, patient is comfortable, awake, alert, oriented x3. She is not in any acute distress. Blood pressure is 118/55, heart rate 73 per minute. She is afebrile. EXAMINATION OF THE HEART: S1 and S2. EXAMINATION OF THE LUNGS: Bilateral breath sounds are heard. Abdomen is soft, nontender. Examination of lower extremities shows edema 1+ bilaterally. AUDIOVISUAL TECH exam is grossly intact. LABS: Labs show sodium 141, potassium 5.1, chloride 99, BUN 40, serum creatinine 1.6. UA shows protein trace, bacteria rare, WBCs 3, Hyaline casts 3. ASSESSMENT: 1. Acute kidney injury secondary to congestive heart failure and cardiorenal state and also exacerbated with use of Bactrim, currently improving. The patient is off of Bactrim. Continue with the current dose of Lasix. We can decrease it to q.12 hours from tomorrow. 2. Recent left big toe amputation for left toe osteomyelitis. 3. Gastroesophageal reflux disease maintained on Protonix. 4. UA is quite benign. Therefore, there is no suggestion of underlying interstitial nephritis. 5. Congestive heart failure, acute on top of chronic, mainly diastolic ejection fraction 55% to 60% on echocardiogram on 02/02/2018. PLAN: Continue current dose of Lasix, decrease to q.12 hours starting tomorrow. Continue off of Bactrim and repeat labs in a.m. Thank you for this consultation. We will continue to follow the patient with you during her hospitalization. MMODL / IJN: [id number] /
--- NOTE | 2018-02-04 14:26 | P.PN ---
Subjective Patient was admitted for chronic diastolic dysfunction with acute exacerbation patient has chronic diastolic dysfunction patient underwent amputation possible colitis of the left great toe. Patient was on Bactrim patient is poor renal function with creatinine of 1.6 because of which patient was switched to levofloxacin patient related patient had ostial mellitus with Stenotrophomonas maltophilia which is sensitive to fluoroquinolones. Patient will continue on IV Lasix was switched to oral Lasix patient did have improvement in his creatinine yesterday after Lasix Objective - Vital Signs Vital signs: Vital Signs Temp 98.2 F 02/04/18 11:35 Pulse 85 02/04/18 13:19 Resp 18 02/04/18 11:35 BP 118/55 02/04/18 11:35 Pulse Ox 94 L 02/04/18 11:35 Intake & Output 02/03/18 02/04/18 02/04/18 18:59 06:59 18:59 Intake Total 720 480 Output Total 1100 600 Balance -380 -600 480 Weight 88.2 kg Intake: Oral 720 480 Output: Urine 1100 600 Other: Voiding Method Toilet Toilet # Voids 1 1 - Exam PHYSICAL EXAMINATION: GENERAL: The patient is alert and oriented x3, not in any acute distress. Well developed, well nourished. HEENT: Pupils are round and equally reacting to light. EOMI. No scleral icterus. No conjunctival pallor. Normocephalic, atraumatic. No pharyngeal erythema. No thyromegaly. CARDIOVASCULAR: S1 and S2 present. No murmurs, rubs, or gallops. PULMONARY: Chest is clear to auscultation, no wheezing or crackles. ABDOMEN: Soft, nontender, nondistended, normoactive bowel sounds. No palpable organomegaly. MUSCULOSKELETAL: No joint swelling or deformity. EXTREMITIES: No cyanosis, clubbing, or pedal edema. Left foot great toe post amputation clean sutures in place NEUROLOGICAL: Gross neurological examination did not reveal any focal deficits. SKIN: No rashes. - Labs CBC & Chem 7: 02/01/18 18:27 02/04/18 06:05 Labs: Abnormal Lab Results - Last 24 Hours (Table) 02/03/18 02/03/18 02/04/18 Range/Units 16:13 21:07 06:01 BUN (7-17) mg/dL Creatinine (0.52-1.04) mg/dL Glucose (74-99) mg/dL POC Glucose (mg/dL) 237 H 199 H 122 H (75-99) mg/dL 02/04/18 02/04/18 Range/Units 06:05 11:40 BUN 40 H (7-17) mg/dL Creatinine 1.62 H (0.52-1.04) mg/dL Glucose 108 H (74-99) mg/dL POC Glucose (mg/dL) 113 H (75-99) mg/dL Assessment and Plan Plan: -Congestive heart failure chronic diastolic dysfunction with acute examination: Continue with IV Lasix basic metabolic profile tomorrow -Ostium mellitus status post amputation of the left great toe about 10 days ago. Patient is on levofloxacin for Stenotrophomonas maltophilia. hypertension Type 2 diabetes hyperlipidemia -Diabetic peripheral neuropathy recent left great toe amputation with osteomyelitis, growing stenotrophomonas maltophia, on antibiotics chronic kidney disease
[2018-02-04 16:49] LABS: Glucose,Whole Blood 285 mg/dL (75-99)
[2018-02-04] MEDS: LEVOFLOXACIN 250 MG TAB PO SCH (20:51)
[2018-02-04 20:57] LABS: Glucose,Whole Blood 224 mg/dL (75-99)
[2018-02-05 06:11] LABS: Glucose,Whole Blood 268 mg/dL (75-99)
[2018-02-05 06:36] LABS: HCT 33.2 % (34.0-46.0); HGB 10.4 gm/dL (11.4-16.0); MCH 28.3 pg (25.0-35.0); MCHC 31.2 g/dL (31.0-37.0); MCV 90.7 fL (80.0-100.0); Mean Platelet Volume 7.1; Platelet Count 368 k/uL (150-450); RBC 3.66 m/uL (3.80-5.40); RDW 14.5 % (11.5-15.5); WBC 10.8 k/uL (3.8-10.6)
[2018-02-05 06:44] LABS: Potassium 4.8 mmol/L (3.5-5.1)
[2018-02-05] MEDS: PANTOPRAZOLE 40 MG TABLET PO SCH (06:50)
[2018-02-05] MEDS: INSULIN ASPART 100 UNIT/ML 1 ML 10 ML VIAL SQ SCH ×2 (06:50→12:15)
[2018-02-05] MEDS: FUROSEMIDE 10 MG/ML 4 ML VIAL IV SCH (08:13)
[2018-02-05] MEDS: amLODIPine 10 MG TAB PO SCH (08:14)
[2018-02-05] MEDS: SODIUM BICARBONATE TAB 650 MG TAB PO SCH (08:14)
[2018-02-05] MEDS: CHOLECALCIFEROL 1,000 UNIT TAB PO SCH (08:14)
[2018-02-05] MEDS: ATORVASTATIN 20 MG TAB PO SCH (08:14)
[2018-02-05] MEDS: IPRATROPIUM-ALBUTEROL 3 ML NEB INHALATION SCH ×3 (08:21→15:45)
[2018-02-05] MEDS: INSULIN DETEMIR 100 UNIT/ML 10 ML VIAL SQ SCH (08:40)
[2018-02-05 11:17] VITALS: BP 151/72; TEMP 98.2
[2018-02-05 11:23] VITALS: PULSE 84
[2018-02-05 12:04] LABS: Glucose,Whole Blood 213 mg/dL (75-99)
--- NOTE | 2018-02-05 12:11 | P.PN ---
Subjective Progress Note Date: 02/05/18 This is a pleasant 67-year-old female with known history of hypertension, diabetes, hyperlipidemia, who recently presented to the hospital after recent admission with osteomyelitis, at which time she underwent a toe amputation by Dr. Turk. She presented to the hospital on this occasion with symptoms of mental status changes, her blood sugars were checked prior to coming to the hospital, cardiology got involved in the care of this patient because of symptoms of progressively worsening shortness of breath, patient was also noted to be bradycardic on admission. She was initiated on IV Lasix, diuresed well on IV Lasix, however the weight does not reflect that this morning. Sodium 141, potassium 5.1, BUN 40, creatinine 1.6. Echocardiogram with Doppler study was performed which revealed an ejection fraction of 55-60%. Blood Pressure this morning 118/60, heart rate in the 70s, 94% on room air. 02/05/2018 Patient seen and examined this morning, overall feeling significantly better today. Continues to be on Lasix every 8 hourly. Her weight is down 3 kg today. White blood cell count 10.8, hemoglobin 10.4, platelet count 368. Sodium 140, potassium 4.8, BUN 37, creatinine 1.6. Objective - Vital Signs Vital signs: Vital Signs Temp 98.2 F 02/05/18 11:16 Pulse 84 02/05/18 11:31 Resp 18 02/05/18 11:16 BP 151/72 02/05/18 11:16 Pulse Ox 95 02/05/18 11:16 Intake & Output 02/04/18 02/05/18 02/05/18 18:59 06:59 18:59 Intake Total 600 120 Output Total 1300 1000 Balance 600 -1300 -880 Weight 85.4 kg Intake: Oral 600 120 Output: Urine 1300 1000 Other: Voiding Method Toilet Toilet Toilet # Voids 1 1 - Exam PHYSICAL EXAMINATION: HEENT: Head is atraumatic, normocephalic. Pupils equal, round. Neck is supple. There is no elevated jugular venous pressure. HEART EXAMINATION: Heart S1 and S2 systolic murmur is heard. CHEST EXAMINATION: Lungs are clear to auscultation and precussion. No chest wall tenderness is noted on palpation or with deep breathing. ABDOMEN: Soft, nontender. Bowel sounds are heard. No organomegaly noted. EXTREMITIES: 2+ peripheral pulses with no evidence of peripheral edema and no calf tenderness noted. Status post left great toe amputation. NEUROLOGIC patient is awake, alert and oriented -3. . - Labs CBC & Chem 7: 02/05/18 06:10 02/05/18 06:10 Labs: Abnormal Lab Results - Last 24 Hours (Table) 02/04/18 02/04/18 02/05/18 Range/Units 16:44 20:55 06:09 WBC (3.8-10.6) k/uL RBC (3.80-5.40) m/uL Hgb (11.4-16.0) gm/dL Hct (34.0-46.0) % Chloride (98-107) mmol/L Carbon Dioxide (22-30) mmol/L BUN (7-17) mg/dL Creatinine (0.52-1.04) mg/dL Glucose (74-99) mg/dL POC Glucose (mg/dL) 285 H 224 H 268 H (75-99) mg/dL 02/05/18 02/05/18 02/05/18 Range/Units 06:10 06:10 11:42 WBC 10.8 H (3.8-10.6) k/uL RBC 3.66 L (3.80-5.40) m/uL Hgb 10.4 L (11.4-16.0) gm/dL Hct 33.2 L (34.0-46.0) % Chloride 94 L (98-107) mmol/L Carbon Dioxide 32 H (22-30) mmol/L BUN 37 H (7-17) mg/dL Creatinine 1.66 H (0.52-1.04) mg/dL Glucose 244 H (74-99) mg/dL POC Glucose (mg/dL) 213 H (75-99) mg/dL Assessment and Plan Plan: Assessment and plan #1 mental status changes, likely secondary to hypoglycemia #2 congestive cardiac failure, diastolic, acute on chronic #3 hypertension #4 diabetes #5 hyperlipidemia #6 peripheral neuropathy #7 recent left great toe amputation with osteomyelitis, growing stenotrophomonas maltophia, on antibiotics #8 chronic kidney disease Plan Echocardiogram with Doppler study was performed which revealed a normal left ventricular systolic function. Decrease IV Lasix to twice a day dose, plan for possible discharge home in 24 hours if stable. DNP note has been reviewed, I agree with a documented findings and plan of care. Patient was seen and examined.
--- NOTE | 2018-02-05 14:13 | P.DS ---
Providers Date of admission: 02/01/18 21:50 Attending physician: Bravo Mcconnell Consults: 02/02/18 13:12 Consult Physician Routine Consulting Provider: Reed Griffith Consult Reason/Comments: chf Do you want consulting provider notified?: Yes 02/03/18 12:05 Consult Physician Routine Consulting Provider: Stephani Kilgore Consult Reason/Comments: renal failure Do you want consulting provider notified?: Yes Primary care physician[facility] Course: Patient was admitted for chronic diastolic dysfunction with acute exacerbation patient has chronic diastolic dysfunction patient underwent amputation possible colitis of the left great toe. Patient was on Bactrim patient is poor renal function with creatinine of 1.6 because of which patient was switched to levofloxacin patient related patient had ostial mellitus with Stenotrophomonas maltophilia which is sensitive to fluoroquinolones. Patient will continue on IV Lasix was switched to oral Lasix patient did have improvement in his creatinine yesterday after Lasix 02/05/2018 Patient is cleared by cardiology and and nephrology patient is clinically doing well. Patient will be discharged today and 60 oral twice a day of Lasix patient need to closely follow up with the cardiology, nephrology, PCP infectious disease and vascular surgery. Patient was switched to levofloxacin because of poor renal function PHYSICAL EXAMINATION: GENERAL: The patient is alert and oriented x3, not in any acute distress. Well developed, well nourished. HEENT: Pupils are round and equally reacting to light. EOMI. No scleral icterus. No conjunctival pallor. Normocephalic, atraumatic. No pharyngeal erythema. No thyromegaly. CARDIOVASCULAR: S1 and S2 present. No murmurs, rubs, or gallops. PULMONARY: Chest is clear to auscultation, no wheezing or crackles. ABDOMEN: Soft, nontender, nondistended, normoactive bowel sounds. No palpable organomegaly. MUSCULOSKELETAL: No joint swelling or deformity. EXTREMITIES: No cyanosis, clubbing, or pedal edema. Left foot great toe post amputation clean sutures in place NEUROLOGICAL: Gross neurological examination did not reveal any focal deficits. SKIN: No rashes. Assessment and Plan Plan: -Congestive heart failure chronic diastolic dysfunction with acute exacerbation -Osteomyelitis status post amputation of the left great toe Patient is on levofloxacin for Stenotrophomonas maltophilia. hypertension Type 2 diabetes hyperlipidemia -Diabetic peripheral neuropathy recent left great toe amputation with osteomyelitis, growing stenotrophomonas maltophia, on antibiotics chronic kidney disease Patient Condition at Discharge: Stable Plan - Discharge Summary New Discharge Prescriptions: New Levofloxacin [Levaquin] 500 mg PO HS #10 tab Furosemide [Lasix] 60 mg PO BID #60 tab Continue Omeprazole 20 mg PO BID Cholecalciferol [Vitamin D3] 2,000 unit PO DAILY amLODIPine [Norvasc] 10 mg PO DAILY #30 tablet Atorvastatin Calcium [Lipitor] 20 mg PO DAILY #30 tab Sodium Bicarbonate Tab 325 mg PO TID #60 tab Atenolol [Tenormin] 25 mg PO HS Changed Insulin Aspart [NovoLOG (formulary)] 15 unit SQ AC-TID #0 Insulin Detemir [Levemir] 25 unit SQ BID #0 Discontinued Sulfamethox-Tmp 800-160Mg [Bactrim DS 800-160 mg] 1 tab PO Q12HR #28 tab hydrALAZINE HCL [Apresoline] 25 mg PO TID Discharge Medication List Omeprazole 20 mg PO BID 08/22/16 [History] Cholecalciferol [Vitamin D3] 2,000 unit PO DAILY 01/16/18 [History] Atorvastatin Calcium [Lipitor] 20 mg PO DAILY #30 tab 01/25/18 [Rx] Sodium Bicarbonate Tab 325 mg PO TID #60 tab 01/25/18 [Rx] amLODIPine [Norvasc] 10 mg PO DAILY #30 tablet 01/25/18 [Rx] Atenolol [Tenormin] 25 mg PO HS 02/01/18 [History] Furosemide [Lasix] 60 mg PO BID #60 tab 02/05/18 [Rx] Insulin Aspart [NovoLOG (formulary)] 15 unit SQ AC-TID #0 02/05/18 [Rx] Insulin Detemir [Levemir] 25 unit SQ BID #0 02/05/18 [Rx] Levofloxacin [Levaquin] 500 mg PO HS #10 tab 02/05/18 [Rx] Follow up Appointment(s)/Referral(s): Stephani Kilgore MD [STAFF PHYSICIAN] - 1 Week (Office to call with follow up appointment.) Reed Griffith MD [STAFF PHYSICIAN] - 02/18/18 4:30 pm (Sunday.) Jose Cadena MD [STAFF PHYSICIAN] - As Needed (Please check with Dr. Turk if follow up with Dr. Cadena is needed.) Norman Jewell MD [Primary Care Provider] - 02/12/18 4:45 pm (Sunday.) Jose Turk MD [STAFF PHYSICIAN] - 02/06/18 (Please keep previous appointment.) Ambulatory/Diagnostic Orders: Basic Metabolic Panel [LAB.AMB] Time Frame: 3 Days, Location: Determined By Patient Patient Instructions/Handouts: Heart Failure (DC), Basic Carbohydrate Counting (DC), Meal Planning with Diabetes Exchanges (DC), Wound Healing and Your Diet ( DC) Discharge Disposition: HOME WITH HOME HEALTH SERVICES
--- NOTE | 2018-02-05 20:28 | PN ---
PROGRESS NOTE Patient is seen for followup for acute kidney injury. Renal function is about the same with creatinine at 1.6. Initial creatinine was 1.19 and previously it was at 0.9 mg/dL. The patient is on IV Lasix 40 mg every 12 hours which was decreased from every 8 hours yesterday. She states she feels well and wants to go home. Patient has had good urine output. EXAMINATION: This morning, blood pressure was 151/72, heart rate 78 per minute. She is afebrile. Examination of the heart S1, S2. Examination lungs bilateral breath sounds are heard. Abdomen is soft, nontender. Examination of lower extremity shows trace edema bilaterally. [employer] exam is grossly intact. LABS: Sodium 140, potassium 4.8, BUN 37, serum creatinine 1.6, hemoglobin 10.4 g/dL. ASSESSMENT: 1. Acute kidney injury secondary to congestive heart failure cardiorenal syndrome, currently stable. Patient also been on Bactrim, which is now discontinued. She could be discharged and will need close followup as outpatient in about 1 week's time. We will repeat blood work as outpatient. The patient can continue Lasix 40 mg p.o. b.i.d. 2. Status post left great toe amputation. The patient can continue with the Levaquin. 3. Congestive heart failure, acute on top of chronic, mainly diastolic. Can continue oral Lasix. PLAN: Patient is stable for discharge. Switch to oral Lasix. Follow up as outpatient in about 1 week's time. The patient is advised to continue to avoid nephrotoxic agents including NSAIDs. MMODL / IJN: [id number] /
[2018-02-05] MEDS ORDERED: FUROSEMIDE 10 MG/ML 4 ML VIAL IV SCH (21:00)
== END 2018-02-05 16:05 | disposition home health service (06) | DRG 291 ==
LOC: EC 18:16 → 6SEL 21:50
PROVIDERS: ADMIT Hospitalist; ATTEND Hospitalist
DX: I13.0 Hypertensive heart and chronic kidney disease with heart failure and stage 1 through stage 4 chronic kidney disease, or unspecified chronic kidney disease (principal); I50.33 Acute on chronic diastolic (congestive) heart failure; N17.9 Acute kidney failure, unspecified; E11.22 Type 2 diabetes mellitus with diabetic chronic kidney disease; E11.42 Type 2 diabetes mellitus with diabetic polyneuropathy; M86.9 Osteomyelitis, unspecified; E11.649 Type 2 diabetes mellitus with hypoglycemia without coma; E11.51 Type 2 diabetes mellitus with diabetic peripheral angiopathy without gangrene; E78.00 Pure hypercholesterolemia, unspecified; E78.5 Hyperlipidemia, unspecified; B96.89 Other specified bacterial agents as the cause of diseases classified elsewhere; T36.8X5A Adverse effect of other systemic antibiotics, initial encounter; T50.1X5A Adverse effect of loop [high-ceiling] diuretics, initial encounter; J45.20 Mild intermittent asthma, uncomplicated; N18.3 Chronic kidney disease, stage 3 (moderate); K21.9 Gastro-esophageal reflux disease without esophagitis; E11.69 Type 2 diabetes mellitus with other specified complication; Z89.412 Acquired absence of left great toe; Z87.440 Personal history of urinary (tract) infections; Z98.1 Arthrodesis status; Z98.42 Cataract extraction status, left eye; Z98.41 Cataract extraction status, right eye; Z79.2 Long term (current) use of antibiotics; Z79.4 Long term (current) use of insulin; Z79.899 Other long term (current) drug therapy; Z88.6 Allergy status to analgesic agent; Z88.8 Allergy status to other drugs, medicaments and biological substances; Z88.7 Allergy status to serum and vaccine; Z87.891 Personal history of nicotine dependence
CPT/HCPCS: 36415; 71046; 80048; 80053; 81001; 82550; 82553; 83036; 83735; 83880; 84443; 85025; 85027; 93005; 93306; 94640; 94760; 96374; 99291

== ENCOUNTER → 2018-02-11 | Outpatient (CLI) | payer MEDICARE ==
[2018-02-11 08:31] LABS: Calcium 9.9 mg/dL (8.4-10.2); Potassium 3.9 mmol/L (3.5-5.1)
== END | disposition home or self-care (01) ==
LOC: LABWHC1 07:21
PROVIDERS: ATTEND Internal Medicine
DX: Z51.81 Encounter for therapeutic drug level monitoring (principal); Z79.899 Other long term (current) drug therapy
CPT/HCPCS: 36415; 80048

== ENCOUNTER → 2018-03-05 | Outpatient (CLI) | payer MEDICARE ==
[2018-03-05 09:26] LABS: Calcium 9.9 mg/dL (8.4-10.2); Potassium 4.3 mmol/L (3.5-5.1)
== END | disposition home or self-care (01) ==
LOC: LABWHC1 08:24
PROVIDERS: ATTEND Internal Medicine Nephrology
DX: N17.9 Acute kidney failure, unspecified (principal)
CPT/HCPCS: 36415; 80048

== ENCOUNTER → 2018-03-12 | Outpatient (CLI) | payer MEDICARE ==
[2018-03-12 10:48] LABS: Basophils # (A) 0.1 k/uL (0-0.2); Basophils % (A) 1 %; Eosinophils # (A) 0.5 k/uL (0-0.7); Eosinophils % (A) 4 %; HCT 38.9 % (34.0-46.0); HGB 12.6 gm/dL (11.4-16.0); Lymphocytes # (A) 3.7 k/uL (1.0-4.8); Lymphocytes % (A) 30 %; MCH 29.2 pg (25.0-35.0); MCHC 32.5 g/dL (31.0-37.0); MCV 89.8 fL (80.0-100.0); Mean Platelet Volume 6.7; Monocytes # (A) 0.5 k/uL (0-1.0); Monocytes % (A) 4 %; Neutrophils # (A) 7.5 k/uL (1.3-7.7); Neutrophils % (A) 60 %; Platelet Count 297 k/uL (150-450); RBC 4.33 m/uL (3.80-5.40); RDW 14.4 % (11.5-15.5); WBC 12.5 k/uL (3.8-10.6)
[2018-03-12 11:00] LABS: Appearance,Urine Clear (Clear); Bilirubin,Urine Negative (Negative); Blood,Urine Negative (Negative); Color,Urine Light Yellow; Glucose,Urine (UA) 4+ (Negative); Ketones,Urine Negative (Negative); Leukocyte Esterase,Urine Negative (Negative); Nitrite,Urine Negative (Negative); PH, Urine 6.5 (5.0-8.0); Protein,Urine Trace (Negative); Specific Gravity,Urine 1.012 (1.001-1.035); Urobilinogen,Urine <2.0 mg/dL (<2.0)
[2018-03-12 11:12] LABS: Calcium 10.2 mg/dL (8.4-10.2); Magnesium 1.9 mg/dL (1.6-2.3); Phosphorus 3.7 mg/dL (2.5-4.5); Potassium 4.9 mmol/L (3.5-5.1)
[2018-03-12 16:08] LABS: Parathyroid Hormone Intact 53.5 pg/mL (14.0-72.0)
[2018-03-12 16:34] LABS: Iron Saturation 22.86 (12.00-45.00)
== END ==
LOC: LABWHC1 10:09
PROVIDERS: ATTEND Nurse Practitioner Adult Health
DX: E78.5 Hyperlipidemia, unspecified (principal); N17.9 Acute kidney failure, unspecified; D64.9 Anemia, unspecified; E55.9 Vitamin D deficiency, unspecified; E21.3 Hyperparathyroidism, unspecified; M10.9 Gout, unspecified; N39.0 Urinary tract infection, site not specified
CPT/HCPCS: 36415; 80048; 80061; 81003; 82728; 83540; 83550; 83735; 83970; 84100; 84550; 85025

== ENCOUNTER → 2018-08-30 | Outpatient (CLI) | payer MEDICARE ==
[2018-08-30 13:31] LABS: Basophils # (A) 0.1 k/uL (0-0.2); Basophils % (A) 1 %; Eosinophils # (A) 0.6 k/uL (0-0.7); Eosinophils % (A) 4 %; HCT 40.6 % (34.0-46.0); Lymphocytes # (A) 4.3 k/uL (1.0-4.8); Lymphocytes % (A) 32 %; MCH 29.8 pg (25.0-35.0); MCV 93.2 fL (80.0-100.0); Mean Platelet Volume 7.2; Monocytes # (A) 0.6 k/uL (0-1.0); Monocytes % (A) 4 %; Neutrophils % (A) 58 %; Platelet Count 304 k/uL (150-450); RBC 4.35 m/uL (3.80-5.40); RDW 13.8 % (11.5-15.5); WBC 13.7 k/uL (3.8-10.6)
[2018-08-30 13:34] LABS: Appearance,Urine Clear (Clear); Bilirubin,Urine Negative (Negative); Blood,Urine Negative (Negative); Color,Urine Light Yellow; Glucose,Urine (UA) 2+ (Negative); Hyaline Casts,Urine 3 /lpf (0-2); Ketones,Urine Negative (Negative); Leukocyte Esterase,Urine Small (Negative); Mucus,Urine Rare /hpf; Nitrite,Urine Negative (Negative); Protein,Urine Negative (Negative); Specific Gravity,Urine 1.009 (1.001-1.035); Squamous Epithelial Cell,Urine <1 /hpf (0-4); Urobilinogen,Urine <2.0 mg/dL (<2.0); WBC,Urine 8 /hpf (0-5)
[2018-08-30 18:39] LABS: Iron Saturation 16.84 (12.00-45.00)
[2018-08-30 18:46] LABS: Albumin 4.6 g/dL (3.80-4.90); Anion Gap 10.5 mmol/L (4.00-12.00); Calcium 9.8 mg/dL (8.7-10.3); Carbon Dioxide 27.5 mmol/L (21.6-31.8); Magnesium 1.8 mg/dL (1.5-2.4); Phosphorus 3.7 mg/dL (2.4-5.1); Potassium 4.6 mmol/L (3.5-5.5); Uric Acid 9.3 mg/dL (2.9-7.7)
[2018-08-30 18:47] LABS: Vitamin D 25 Hydroxy 22.5 ng/mL (30.0-100.0)
[2018-08-30 18:50] LABS: Parathyroid Hormone Intact 107.6 pg/mL (14.0-72.0)
== END ==
LOC: LABWHC1 12:04
PROVIDERS: ATTEND Internal Medicine Nephrology
DX: N18.4 Chronic kidney disease, stage 4 (severe) (principal); D63.1 Anemia in chronic kidney disease; E55.9 Vitamin D deficiency, unspecified; M10.9 Gout, unspecified; N39.0 Urinary tract infection, site not specified
CPT/HCPCS: 36415; 80048; 81001; 82040; 82306; 82728; 83540; 83550; 83735; 83970; 84100; 84550; 85025

== ENCOUNTER → 2019-01-22 | Outpatient (CLI) | payer MEDICARE ==
[2019-01-22 22:54] LABS: Anion Gap 14.5 mmol/L (4.00-12.00); Calcium 10.3 mg/dL (8.7-10.3); Carbon Dioxide 28.5 mmol/L (21.6-31.8); Potassium 4.4 mmol/L (3.5-5.5)
== END ==
LOC: LABWHC1 15:46
PROVIDERS: ATTEND Anesthesiology
DX: Z01.812 Encounter for preprocedural laboratory examination (principal)
CPT/HCPCS: 36415; 80048

== ENCOUNTER 2020-03-22 01:30 | Inpatient (IN) | payer MEDICARE ==
[2020-03-22 01:42] LABS: Glucose,Whole Blood 53 mg/dL (75-99)
[2020-03-22] MEDS ORDERED: DEXTROSE 50% SYRINGE 50 ML IVP STA ×2 (01:42→03:27)
--- NOTE | 2020-03-22 01:42 | ED ---
Recheck HPI - General Chief Complaint: Recheck/Abnormal Lab/Rx Stated Complaint: Chest pain Time Seen by Provider: 03/22/20 01:35 Source: patient, EMS, RN notes reviewed, old records reviewed Mode of arrival: EMS Limitations: no limitations - History of Present Illness Initial Comments: This is a 69-year-old year-old female who presents today for evaluation regards to not feeling well. Patient states she currently does not feel well she has had diabetes presents as EMS was called house as family had noticed patient was unresponsive. They did try to give patient, is her high sugar snack, blood sugar EMS arrived, blood sugar in the 20s. Patient states she has felt fine here in the emergency department no chest pain or shortness of breath EMS does not state the patient of any other symptoms. Patient does have history of diabetes MD Complaint: abnormal lab (low blood sugar) -: minutes(s) Returns Today for: Called Because of Abnormal Lab/Test (EMS called for unrespon siveness) Symptoms Since Prior Visit: no new symptoms Associated Symptoms: malaise Treatments Prior to Arrival: IV/IO (dextrose) - Related Data Home Medications Medication Instructions Recorded Confirmed Omeprazole 20 mg PO BID 08/22/16 02/01/18 Cholecalciferol [Vitamin D3 (25 2,000 unit PO DAILY 01/16/18 02/01/18 Mcg = 1000 Iu)] Atenolol [Tenormin] 25 mg PO HS 02/01/18 02/01/18 Previous Rx's Medication Instructions Recorded Atorvastatin Calcium [Lipitor] 20 mg PO DAILY #30 tab 01/25/18 Sodium Bicarbonate Tab 325 mg PO TID #60 tab 01/25/18 amLODIPine [Norvasc] 10 mg PO DAILY #30 tablet 01/25/18 Furosemide [Lasix] 60 mg PO BID #60 tab 02/05/18 INSULIN ASPART (NovoLOG) [NovoLOG 15 unit SQ AC-TID #0 02/05/18 (formulary)] Insulin Detemir (Levemir) [Levemir] 25 unit SQ BID #0 02/05/18 Levofloxacin [Levaquin] 500 mg PO HS #10 tab 02/05/18 Allergies Allergy/AdvReac Type Severity Reaction Status Date / Time aspirin Allergy Anaphylaxis Verified 03/22/20 01:38 ibuprofen [From Motrin] Allergy Anaphylaxis Verified 03/22/20 01:38 NSAIDS (Non-Steroidal Allergy Anaphylaxis Verified 03/22/20 01:38 Anti-Inflamma flu vac Allergy Anaphylaxis Uncoded 03/22/20 01:38 Review of Systems ROS Statement: Those systems with pertinent positive or pertinent negative responses have been documented in the HPI. ROS Other: All systems not noted in ROS Statement are negative. Past Medical History Past Medical History: Asthma, Diabetes Mellitus, GERD/Reflux, Skin Disorder Additional Past Medical History / Comment(s): "gallbladder functioning 30%", hx gout, woung left great toe, frequent UTI's, pt stated she is on bp and cholesterol meds as a preventative d/t her dm. neuropthy. History of Any Multi-Drug Resistant Organisms: None Reported Past Surgical History: Back Surgery, Ear Surgery, Hysterectomy, Tonsillectomy Additional Past Surgical History / Comment(s): pilonidial cyst, spinal fusion, backsx to removed spurs.renée cataracts, shots in eyes from retinal dr. Past Anesthesia/Blood Transfusion Reactions: Motion Sickness Past Psychological History: No Psychological Hx Reported Smoking Status: Former smoker Past Alcohol Use History: Occasional Past Drug Use History: None Reported - Past Family History Mother Family Medical History: Cancer Father Additional Family Medical History / Comment(s): blood clot in arm Brother(s) Family Medical History: Cancer General Exam Limitations: no limitations General appearance: alert, in no apparent distress Head exam: Present: atraumatic, normocephalic, normal inspection Eye exam: Present: normal appearance, PERRL, EOMI. Absent: scleral icterus, conjunctival injection, periorbital swelling ENT exam: Present: normal exam, mucous membranes moist Neck exam: Present: normal inspection. Absent: tenderness, meningismus, lymphadenopathy Respiratory exam: Present: normal lung sounds bilaterally. Absent: respiratory distress, wheezes, rales, rhonchi, stridor Cardiovascular Exam: Present: regular rate, normal rhythm, normal heart sounds. Absent: systolic murmur, diastolic murmur, rubs, gallop, clicks GI/Abdominal exam: Present: soft, normal bowel sounds. Absent: distended, tenderness, guarding, rebound, rigid Extremities exam: Present: normal inspection, full ROM, normal capillary refill. Absent: tenderness, pedal edema, joint swelling, calf tenderness Back exam: Present: normal inspection Neurological exam: Present: alert, oriented X3, CN II-XII intact Psychiatric exam: Present: normal affect, normal mood Skin exam: Present: warm, dry, intact, normal color. Absent: rash Course Vital Signs 03/22/20 01:33 Temperature 97.7 F Pulse Rate 89 Respiratory 20 Rate Blood Pressure 184/77 O2 Sat by Pulse 97 Oximetry - Reevaluation(s) Reevaluation #1: 03/22/20 02:45 Medical record is reviewed EMS notes are reviewed patient was found hypoglycemia home blood sugar in the 20s Medical Decision Making - Medical Decision Making 69 female DF for evaluation patient with unresponsive episode at home. Patient was found to have low hemoglobin no chest pain with patient's troponin is mildly elevated here in the ER will admit for trending of troponin and monitoring of glucose - Lab Data Result diagrams: 03/22/20 01:48 03/22/20 01:48 Lab Results 03/22/20 03/22/20 03/22/20 Range/Units 01:40 01:48 01:48 WBC 15.3 H (3.8-10.6) k/uL RBC 4.21 (3.80-5.40) m/uL Hgb 12.5 (11.4-16.0) gm/dL Hct 38.5 (34.0-46.0) % MCV 91.5 (80.0-100.0) fL MCH 29.8 (25.0-35.0) pg MCHC 32.5 (31.0-37.0) g/dL RDW 13.8 (11.5-15.5) % Plt Count 259 (150-450) k/uL Neutrophils % 66 % Lymphocytes % 24 % Monocytes % 5 % Eosinophils % 4 % Basophils % 1 % Neutrophils # 10.1 H (1.3-7.7) k/uL Lymphocytes # 3.6 (1.0-4.8) k/uL Monocytes # 0.8 (0-1.0) k/uL Eosinophils # 0.6 (0-0.7) k/uL Basophils # 0.1 (0-0.2) k/uL Manual Slide Review Performed Sodium 138 (137-145) mmol/L Potassium 3.4 L (3.5-5.1) mmol/L Chloride 103 (98-107) mmol/L Carbon Dioxide 28 (22-30) mmol/L Anion Gap 7 mmol/L BUN 28 H (7-17) mg/dL Creatinine 1.22 H (0.52-1.04) mg/dL Est GFR (CKD-EPI)AfAm 52 (>60 ml/min/1.73 sqM) Est GFR (CKD-EPI)NonAf 45 (>60 ml/min/1.73 sqM) Glucose 208 H (74-99) mg/dL POC Glucose (mg/dL) 53 L (75-99) mg/dL POC Glu Job Molder Melina Mosley Plasma Lactic Acid Wallace (0.7-2.0) mmol/L Calcium 9.6 (8.4-10.2) mg/dL Phosphorus 3.3 (2.5-4.5) mg/dL Magnesium 1.7 (1.6-2.3) mg/dL Total Bilirubin 0.3 (0.2-1.3) mg/dL AST 22 (14-36) U/L ALT 14 (4-34) U/L Alkaline Phosphatase 79 (38-126) U/L Creatine Kinase 139 H (30-135) U/L CK-MB (CK-2) (0.0-2.4) ng/mL Troponin I (0.000-0.034) ng/mL Total Protein 6.8 (6.3-8.2) g/dL Albumin 3.8 (3.5-5.0) g/dL 03/22/20 03/22/20 03/22/20 Range/Units 01:48 01:48 02:19 WBC (3.8-10.6) k/uL RBC (3.80-5.40) m/uL Hgb (11.4-16.0) gm/dL Hct (34.0-46.0) % MCV (80.0-100.0) fL MCH (25.0-35.0) pg MCHC (31.0-37.0) g/dL RDW (11.5-15.5) % Plt Count (150-450) k/uL Neutrophils % % Lymphocytes % % Monocytes % % Eosinophils % % Basophils % % Neutrophils # (1.3-7.7) k/uL Lymphocytes # (1.0-4.8) k/uL Monocytes # (0-1.0) k/uL Eosinophils # (0-0.7) k/uL Basophils # (0-0.2) k/uL Manual Slide Review Sodium (137-145) mmol/L Potassium (3.5-5.1) mmol/L Chloride (98-107) mmol/L Carbon Dioxide (22-30) mmol/L Anion Gap mmol/L BUN (7-17) mg/dL Creatinine (0.52-1.04) mg/dL Est GFR (CKD-EPI)AfAm (>60 ml/min/1.73 sqM) Est GFR (CKD-EPI)NonAf (>60 ml/min/1.73 sqM) Glucose (74-99) mg/dL POC Glucose (mg/dL) 97 (75-99) mg/dL POC Glu Job Molder Melina Mosley Plasma Lactic Acid Wallace 2.1 H* (0.7-2.0) mmol/L Calcium (8.4-10.2) mg/dL Phosphorus (2.5-4.5) mg/dL Magnesium (1.6-2.3) mg/dL Total Bilirubin (0.2-1.3) mg/dL AST (14-36) U/L ALT (4-34) U/L Alkaline Phosphatase (38-126) U/L Creatine Kinase (30-135) U/L CK-MB (CK-2) 1.8 (0.0-2.4) ng/mL Troponin I 0.036 H* (0.000-0.034) ng/mL Total Protein (6.3-8.2) g/dL Albumin (3.5-5.0) g/dL - EKG Data -: EKG Interpreted by Me (EKG shows sinus rhythm, PR170, QRS 100 , [id number]) - Radiology Data Radiology results: report reviewed (CXR is negative for acute dz), image reviewed Critical Care Time Critical Care Time: Yes Total Critical Care Time: 31 Disposition Clinical Impression: Hypoglycemia, Elevated troponin, Weakness Narrative: resolved Disposition: HOME SELF-CARE Condition: Fair Is patient prescribed a controlled substance at d/c from ED?: No Referrals: Norman Jewell MD [Primary Care Provider] - 1-2 days
--- NOTE | 2020-03-22 02:01 | XR ---
EXAMINATION TYPE: XR chest 2V DATE OF EXAM: 03/22/2020 COMPARISON: 02/01/2018 HISTORY: Weakness TECHNIQUE: FINDINGS: Heart and mediastinum are within normal limits. Lungs are clear. There is no heart failure. Costophrenic angles are clear. Bony thorax is intact. IMPRESSION: No active cardiopulmonary disease. There is clearing of the pulmonary congestion and pleu ral fluid compared to old exam.
[2020-03-22 02:05] LABS: Basophils # (A) 0.1 k/uL (0-0.2); Basophils % (A) 1 %; Eosinophils # (A) 0.6 k/uL (0-0.7); Eosinophils % (A) 4 %; HCT 38.5 % (34.0-46.0); HGB 12.5 gm/dL (11.4-16.0); Lymphocytes # (A) 3.6 k/uL (1.0-4.8); Lymphocytes % (A) 24 %; MCH 29.8 pg (25.0-35.0); MCHC 32.5 g/dL (31.0-37.0); MCV 91.5 fL (80.0-100.0); Mean Platelet Volume 9.2; Monocytes # (A) 0.8 k/uL (0-1.0); Monocytes % (A) 5 %; Neutrophils # (A) 10.1 k/uL (1.3-7.7); Neutrophils % (A) 66 %; Platelet Count 259 k/uL (150-450); RBC 4.21 m/uL (3.80-5.40); RDW 13.8 % (11.5-15.5); WBC 15.3 k/uL (3.8-10.6)
[2020-03-22 02:07] LABS: Albumin 3.8 g/dL (3.5-5.0); Calcium 9.6 mg/dL (8.4-10.2); Magnesium 1.7 mg/dL (1.6-2.3); Phosphorus 3.3 mg/dL (2.5-4.5); Potassium 3.4 mmol/L (3.5-5.1); Total Bilirubin 0.3 mg/dL (0.2-1.3); Total Protein 6.8 g/dL (6.3-8.2)
[2020-03-22 02:21] LABS: Glucose,Whole Blood 97 mg/dL (75-99)
[2020-03-22 02:31] LABS: Creatine Kinase MB 1.8 ng/mL (0.0-2.4)
[2020-03-22 02:38] LABS: Troponin I 0.036 ng/mL (0.000-0.034)
[2020-03-22] MEDS ORDERED: NITROGLYCERIN SL TABS 0.4 MG TAB SUBLINGUAL PRN (02:41)
[2020-03-22 02:45] LABS: Partial Thromboplastin Time 22.2 sec (22.0-30.0); Prothrombin Time 10.3 sec (9.0-12.0)
[2020-03-22 02:52] LABS: Glucose,Whole Blood 58 mg/dL (75-99)
[2020-03-22] MEDS ORDERED: DEXTROSE 5%-0.45% NACL 1,000 ML IV STA ×2 (02:56→03:37)
[2020-03-22 03:27] LABS: Glucose,Whole Blood 38 mg/dL (75-99)
[2020-03-22] MEDS ORDERED: DEXTROSE 10% IN WATER 1,000 ML IV ONE (03:50)
--- NOTE | 2020-03-22 03:59 | P.HPIM ---
History of Present Illness H&P Date: 03/22/20 Chief Complaint: hypoglycemia 6-year-old female with diabetes mellitus Patient was at her baseline status of health she took her nighttime dose of insulin which is 70 units in addition to the insulin sliding scale during the day she went to bed however after midnight for noticed that she was shaking tried to wake her up and found mumbling he recognized that she was sweating and suspected hypoglycemia so he brought her some hard candies and dummies she started to wake up more however he ordered to have notified EMS to come and evaluate the patient. He reports that this has happened about 1 or 2 years ago due to unknown reasons. At time of arrival of EMS of blood sugar was still 29 however she was more awake, she otherwise denies any fevers or chills denies any chest pain or trouble breathing denies any nausea vomiting denies any dizziness lightheadednes s. She was taking into the ambulance was given some popsicles and was brought into the hospital her blood sugar here was found to be in the 50s she was started on D5 with half-normal saline however her blood sugar continues to drop she was later found to have a blood sugar of 38 patient was feeling that her blood sugar is dropping. Otherwise denies any associated symptoms except for some shakiness and feeling tired. She denies any coughing shortness of breath or chest pain denies any nausea vomiting abdominal pain denies any GI bleeding. She denies any changes in her insulin dosing she reports that she's been fighting with some bad foot infection that is healing right now pre-well. She r eports that he just started some classes for diabetes education and she is eating healthier now. She uses violent insulin syringe but reports that as far as she knows she took only 70 units tonight Patient was admitted to monitor her blood glucose closely, and to trend troponins which was found to be slightly elevated Review of Systems Pertinent positives as noted in HPI. All other systems were reviewed and are negative Past Medical History Past Medical History: Asthma, Diabetes Mellitus, GERD/Reflux, Skin Disorder Additional Past Medical History / Comment(s): "gallbladder functioning 30%", hx gout, woung left great toe, frequent UTI's, pt stated she is on bp and cholesterol meds as a preventative d/t her dm. neuropthy. History of Any Multi-Drug Resistant Organisms: None Reported Past Surgical History: Back Surgery, Ear Surgery, Hysterectomy, Tonsillectomy Additional Past Surgical History / Comment(s): pilonidial cyst, spinal fusion, backsx to removed spurs.renée cataracts, shots in eyes from retinal dr. Past Anesthesia/Blood Transfusion Reactions: Motion Sickness Past Psychological History: No Psychological Hx Reported Smoking Status: Former smoker Past Alcohol Use History: Occasional Past Drug Use History: None Reported - Past Family History Mother Family Medical History: Cancer Father Additional Family Medical History / Comment(s): blood clot in arm Brother(s) Family Medical History: Cancer Medications and Allergies Home Medications Medication Instructions Recorded Confirmed Type Omeprazole 20 mg PO BID 08/22/16 02/01/18 History Cholecalciferol [Vitamin D3 (25 2,000 unit PO DAILY 01/16/18 02/01/18 History Mcg = 1000 Iu)] Atorvastatin Calcium [Lipitor] 20 mg PO DAILY #30 tab 01/25/18 02/01/18 Rx Sodium Bicarbonate Tab 325 mg PO TID #60 tab 01/25/18 02/01/18 Rx amLODIPine [Norvasc] 10 mg PO DAILY #30 tablet 01/25/18 02/01/18 Rx Atenolol [Tenormin] 25 mg PO HS 02/01/18 02/01/18 History Furosemide [Lasix] 60 mg PO BID #60 tab 02/05/18 Rx INSULIN ASPART (NovoLOG) [NovoLOG 15 unit SQ AC-TID #0 02/05/18 02/01/18 Rx (formulary)] Insulin Detemir (Levemir) [Levemir] 25 unit SQ BID #0 02/05/18 02/01/18 Rx Levofloxacin [Levaquin] 500 mg PO HS #10 tab 02/05/18 Rx Allergies Allergy/AdvReac Type Severity Reaction Status Date / Time aspirin Allergy Anaphylaxis Verified 03/22/20 01:38 ibuprofen [From Motrin] Allergy Anaphylaxis Verified 03/22/20 01:38 NSAIDS (Non-Steroidal Allergy Anaphylaxis Verified 03/22/20 01:38 Anti-Inflamma flu vac Allergy Anaphylaxis Uncoded 03/22/20 01:38 Physical Exam Vitals: Vital Signs Temp Pulse Resp BP Pulse Ox 03/22/20 01:33 97.7 F 89 20 184/77 97 Intake and Output 03/21/20 03/21/20 03/22/20 14:59 22:59 06:59 Other: Weight 83.915 kg Constitutional: No acute distress, conversant, pleasant Eyes: Anicteric sclerae, moist conjunctiva, no lid-lag Pupils equal round reactive to light ENMT: NC/AT Oropharynx clear, no erythema, exudates Neck: Supple, FROM, no masses, or JVD No carotid bruits No thyromegaly Lungs: Clear to auscultation Clear to percussion Normal respiratory effort, no accessory muscle use Cardiovascular: Heart regular in rate and rhythm, No murmurs, gallops, or rubs No peripheral edema Abdominal: Soft Nontender, no guarding, rebound or rigidity Abdomen moving with respiration Normoactive bowel sounds No hepatomegaly, No splenomegaly No palpable mass No abdominal wall hernia noted Skin: Normal temperature, tone, texture, turgor No induration No subcutaneous nodules No rash, lesions No ulcers Extremities: 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, she has healing wound over the left Achilles tendon No digital cyanosis No clubbing Pedal pulses weak and symmetrical, capillary refill is immediate Radial pulses intact and symmetrical No calf tenderness Psychiatric: Alert and oriented to person, place and time Appropriate affect fair judgement Neuro Muscles Strength 5/5 in all 4 extremities Sensation to light touch grossly present throughout Cranial nerves II-XII grossly intact No focal sensory deficits Lymphatics: no palpable cervical or supraclavicular , or inguinal lymph nodes Results CBC & Chem 7: 03/22/20 01:48 03/22/20 01:48 Labs: Abnormal Lab Results - Last 24 Hours (Table) 03/22/20 03/22/20 03/22/20 Range/Units 01:40 01:48 01:48 WBC 15.3 H (3.8-10.6) k/uL Neutrophils # 10.1 H (1.3-7.7) k/uL Potassium 3.4 L (3.5-5.1) mmol/L BUN 28 H (7-17) mg/dL Creatinine 1.22 H (0.52-1.04) mg/dL Glucose 208 H (74-99) mg/dL POC Glucose (mg/dL) 53 L (75-99) mg/dL Plasma Lactic Acid Wallace (0.7-2.0) mmol/L Creatine Kinase 139 H (30-135) U/L Troponin I (0.000-0.034) ng/mL 03/22/20 03/22/20 Range/Units 01:48 01:48 WBC (3.8-10.6) k/uL Neutrophils # (1.3-7.7) k/uL Potassium (3.5-5.1) mmol/L BUN (7-17) mg/dL Creatinine (0.52-1.04) mg/dL Glucose (74-99) mg/dL POC Glucose (mg/dL) (75-99) mg/dL Plasma Lactic Acid Wallace 2.1 H* (0.7-2.0) mmol/L Creatine Kinase (30-135) U/L Troponin I 0.036 H* (0.000-0.034) ng/mL Assessment and Plan Assessment: 69-year-old female with diabetes mellitus on insulin sliding scale during the day and long-acting insulin at night no recent changes in her insulin dosing however she started eating healthier and she had some wounds in her right leg that is healing. She had an episode of hypoglycemia and unresponsiveness today and was brought into the hospital for evaluation anticipated length of stay less than two midnight Acute metabolic encephalopathy secondary to hypoglycemia Diabetes mellitus with acute hypoglycemia Hold insulin Close monitoring of blood sugar Switched to D10 as patient continues to drop her blood sugar Encourage by mouth intake Slightly elevated troponins continue to trend cardiac enzymes, most likely secondary to CK D CK D stage III Continue to monitor renal function Avoid nephrotoxic meds Mild hypokalemia replace and monitor levels Mild lactic acidosis, patient given IV fluids Follow-up lactic acid level CODE STATUS: Full code DVT prophylaxis: Heparin subcu 3 times a day Discussed with: Patient, ER, RN Anticipated length of stay less than [address]: Home A total of 75 minutes was spent on the care of this complex patient more than 50% of the time was spent in counseling and care coordination.
[2020-03-22 04:05] LABS: Glucose,Whole Blood 109 mg/dL (75-99)
[2020-03-22] MEDS ORDERED: POTASSIUM CHLORIDE ER 20 MEQ TAB.ER PO STA (04:09)
[2020-03-22] MEDS ORDERED: DEXTROSE 5%-0.45% NACL 1,000 ML IV SCH (04:15)
[2020-03-22 05:01] LABS: Glucose,Whole Blood 108 mg/dL (75-99)
[2020-03-22 06:18] LABS: Glucose,Whole Blood 156 mg/dL (75-99)
[2020-03-22 07:51] LABS: Glucose,Whole Blood 154 mg/dL (75-99)
[2020-03-22 08:31] LABS: Glucose,Whole Blood 191 mg/dL (75-99)
[2020-03-22 08:31] LABS: HCT 39.9 % (34.0-46.0); HGB 12.5 gm/dL (11.4-16.0); MCH 28.9 pg (25.0-35.0); MCHC 31.3 g/dL (31.0-37.0); MCV 92.1 fL (80.0-100.0); Mean Platelet Volume 7.8; Platelet Count 292 k/uL (150-450); RBC 4.33 m/uL (3.80-5.40); RDW 13.9 % (11.5-15.5); WBC 17.3 k/uL (3.8-10.6)
[2020-03-22 08:39] LABS: Calcium 9.8 mg/dL (8.4-10.2); Potassium 4.2 mmol/L (3.5-5.1)
[2020-03-22] MEDS: HEPARIN SODIUM,PORCINE 5,000 UNIT/ML 1 ML VIAL SQ SCH ×2 (08:59→15:24)
[2020-03-22 09:29] LABS: Glucose,Whole Blood 187 mg/dL (75-99)
[2020-03-22] MEDS ORDERED: LISINOPRIL 10 MG TAB PO STA (09:34)
[2020-03-22 10:31] LABS: Glucose,Whole Blood 196 mg/dL (75-99)
[2020-03-22 11:29] LABS: Glucose,Whole Blood 168 mg/dL (75-99)
--- NOTE | 2020-03-22 12:14 | P.PN ---
Subjective Progress Note Date: 03/22/20 Principal diagnosis: Altered mentation Patient is a 69-year-old female past medical history of diabetes mellitus type 2 insulin-dependent, neuropathy, and chronic lower extremity wound who presented to the ER via EMS secondary to hypoglycemia. In the middle of her night her awoke and noticed she was not acting normally. He started feeding her sugar as he felt that she was hypoglycemic. When EMS arrived her blood sugar was still 29 which was more awake. In the ER she was found to have a blood sugar of 38. She ultimately required multiple doses of D50 and was started on a D5 half normal saline drip. Laboratory analysis demonstrated mildly elevated troponin 0.036, white blood cell count of 15, lactic acid 2.1, and a creatinine of 1.22. She is admitted for further monitoring of her hypoglycemia. Early in the morning on 03/22 she was noted to have continued low blood sugars despite D5 half-normal drip and was changes into a D10 drip. Her blood sugar then improved and she was transitioned back to D5 half-normal drip. Patient seen and examined at bedside. She is feeling well this morning. She is feeling somewhat tired still. She states she is unsure what happened last night. She's been in her normal state of health has not had any recent changes in her medication. She is insistent that she took only her 70 units of long-act ing insulin. She could not of confused this with her short acting as her short acting is in a pen and long-acting insulin is in a vial. She denies recent cough, cold, fever, flu. She is not having any chest pain or shortness of breath last night. 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 At that point in time she had a nuclear stress test at [facility]. She has not seen a truss puller helper since that time and has been managed by her primary physician Dr. Jewell. She reports that she has been on 2 different blood pressure medications in the past but has not taken them in years. She states that her blood pressures typically well-controlled at Dr. Jewell's office. <147 16 units 148-199 17 units Objective - Vital Signs Vital signs: Vital Signs Temp 97.2 F L 03/22/20 08:00 Pulse 72 03/22/20 08:00 Resp 16 05/25/20 08:00 BP 198/90 03/22/20 08:00 Pulse Ox 100 03/22/20 08:00 Intake & Output 03/21/20 03/22/20 03/22/20 18:59 06:59 18:59 Weight 87.5 kg Other: # Voids 0 1 - Exam General: non toxic, no distress, appears at stated age obese Derm: Scarring over right Achilles warm, dry Head: atraumatic, normocephalic, symmetric Eyes: EOMI, no lid lag, anicteric sclera Mouth: no lip lesion, mucus membranes moist Cardiovascular: S1S2 reg, no murmur, positive posterior tibial pulse bilateral, Lungs: CTA bilateral, no rhonchi, no rales , no accessory muscle use Abdominal: soft, nontender to palpation, no guarding, no appreciable organomegaly Ext: no gross muscle atrophy, trace edema bilateral lower extremities, no contractures Neuro: CN II-XI grossly intact, no focal neuro deficits Psych: Alert, oriented, appropriate affect - Labs CBC & Chem 7: 03/22/20 07:30 03/22/20 07:30 Labs: Abnormal Lab Results - Last 24 Hours (Table) 03/22/20 03/22/20 03/22/20 Range/Units 01:40 01:48 01:48 WBC 15.3 H (3.8-10.6) k/uL Neutrophils # 10.1 H (1.3-7.7) k/uL Potassium 3.4 L (3.5-5.1) mmol/L BUN 28 H (7-17) mg/dL Creatinine 1.22 H (0.52-1.04) mg/dL Glucose 208 H (74-99) mg/dL POC Glucose (mg/dL) 53 L (75-99) mg/dL Plasma Lactic Acid Wallace (0.7-2.0) mmol/L Creatine Kinase 139 H (30-135) U/L Troponin I (0.000-0.034) ng/mL 03/22/20 03/22/20 03/22/20 Range/Units 01:48 01:48 02:50 WBC (3.8-10.6) k/uL Neutrophils # (1.3-7.7) k/uL Potassium (3.5-5.1) mmol/L BUN (7-17) mg/dL Creatinine (0.52-1.04) mg/dL Glucose (74-99) mg/dL POC Glucose (mg/dL) 58 L (75-99) mg/dL Plasma Lactic Acid Wallace 2.1 H* (0.7-2.0) mmol/L Creatine Kinase (30-135) U/L Troponin I 0.036 H* (0.000-0.034) ng/mL 03/22/20 03/22/20 03/22/20 Range/Units 03:25 04:03 04:59 WBC (3.8-10.6) k/uL Neutrophils # (1.3-7.7) k/uL Potassium (3.5-5.1) mmol/L BUN (7-17) mg/dL Creatinine (0.52-1.04) mg/dL Glucose (74-99) mg/dL POC Glucose (mg/dL) 38 L 109 H 108 H (75-99) mg/dL Plasma Lactic Acid Wallace (0.7-2.0) mmol/L Creatine Kinase (30-135) U/L Troponin I (0.000-0.034) ng/mL 03/22/20 03/22/20 03/22/20 Range/Units 05:40 06:16 07:30 WBC (3.8-10.6) k/uL Neutrophils # (1.3-7.7) k/uL Potassium (3.5-5.1) mmol/L BUN (7-17) mg/dL Creatinine (0.52-1.04) mg/dL Glucose (74-99) mg/dL POC Glucose (mg/dL) 156 H (75-99) mg/dL Plasma Lactic Acid Wallace 2.2 H* (0.7-2.0) mmol/L Creatine Kinase (30-135) U/L Troponin I 0.902 H* (0.000-0.034) ng/mL 03/22/20 03/22/20 03/22/20 Range/Units 07:30 07:30 07:49 WBC 17.3 H (3.8-10.6) k/uL Neutrophils # (1.3-7.7) k/uL Potassium (3.5-5.1) mmol/L BUN 25 H (7-17) mg/dL Creatinine 1.10 H (0.52-1.04) mg/dL Glucose 167 H (74-99) mg/dL POC Glucose (mg/dL) 154 H (75-99) mg/dL Plasma Lactic Acid Wallace (0.7-2.0) mmol/L Creatine Kinase (30-135) U/L Troponin I (0.000-0.034) ng/mL 03/22/20 03/22/20 03/22/20 Range/Units 08:23 09:12 09:28 WBC (3.8-10.6) k/uL Neutrophils # (1.3-7.7) k/uL Potassium (3.5-5.1) mmol/L BUN (7-17) mg/dL Creatinine (0.52-1.04) mg/dL Glucose (74-99) mg/dL POC Glucose (mg/dL) 191 H 187 H (75-99) mg/dL Plasma Lactic Acid Wallace 2.6 H* (0.7-2.0) mmol/L Creatine Kinase (30-135) U/L Troponin I (0.000-0.034) ng/mL Assessment and Plan Assessment: Hypoglycemia, drug induced due to Insulin with diabetes mellitus type 2 and neuropathy - D5 0.45 gtt was initially decreased this morning and has not taken off - Resume sliding scale insulin plus NovoLog fixws dose. Patient normally takes 16-20 units of NovoLog depending on blood sugars. - hold long acting insulin - check A1C - Follow BS Elevated troponin -Patient has anaphylactic reaction to aspirin will not be started at this point in time -Patient does not have ongoing chest pain -Consult cardiology -Start statin -Optimize blood pressure -Likely stress-induced secondary to severe hypoglycemia however Concern is for possible silent OR overnight last night. -Telemetry Hypertensive urgency -No history of hypertension per patient -Start lisinopril -Follow blood pressures Obesity with BMI 35.3 -Structured outpatient weight loss Lactic acidosis, improved -IV fluids stopped Psychosis -Suspect stress-induced -Repeat CBC in a.m. Toxic metabolic encephalopathy, resolved Hypokalemia, resolved Chronic: CKD stage III, creatinine at baseline DVT prophylaxis: Heparin gtt Discussed with: patient, nursing Anticipated discharge: in AM Anticipated discharge place: home A total of 35 minutes was spent on the care of this complex patient more than 50% of the time was spent in counseling and care coordination.
[2020-03-22] MEDS: INSULIN ASPART (NovoLOG) 100 UNIT/ML VIAL SQ SCH ×5 (12:22→20:44)
[2020-03-22 14:26] LABS: Appearance,Urine Cloudy (Clear); Bacteria,Urine Many /hpf; Bilirubin,Urine Negative (Negative); Blood,Urine Moderate (Negative); Color,Urine Light Yellow; Glucose,Urine (UA) Trace (Negative); Ketones,Urine Negative (Negative); Leukocyte Esterase,Urine Large (Negative); Mucus,Urine Rare /hpf; Nitrite,Urine Negative (Negative); PH, Urine 5.5 (5.0-8.0); Protein,Urine Trace (Negative); RBC,Urine 16 /hpf (0-5); Urobilinogen,Urine <2.0 mg/dL (<2.0); WBC,Urine 136 /hpf (0-5)
[2020-03-22 16:53] LABS: Glucose,Whole Blood 318 mg/dL (75-99)
[2020-03-22] MEDS ORDERED: HEPARIN SODIUM,PORCINE 5,000 UNIT/ML 1 ML VIAL IV ONE (19:41)
[2020-03-22 20:08] LABS: Basophils # (A) 0.1 k/uL (0-0.2); Basophils % (A) 1 %; Eosinophils # (A) 0.4 k/uL (0-0.7); Eosinophils % (A) 2 %; HGB 11.1 gm/dL (11.4-16.0); Hypochromasia Slight; Lymphocytes # (A) 4.7 k/uL (1.0-4.8); Lymphocytes % (A) 31 %; MCH 28.7 pg (25.0-35.0); MCHC 30.9 g/dL (31.0-37.0); MCV 92.9 fL (80.0-100.0); Monocytes # (A) 0.8 k/uL (0-1.0); Monocytes % (A) 5 %; Neutrophils # (A) 9.1 k/uL (1.3-7.7); Neutrophils % (A) 60 %; Platelet Count 261 k/uL (150-450); RBC 3.88 m/uL (3.80-5.40); RDW 13.9 % (11.5-15.5); WBC 15.2 k/uL (3.8-10.6)
[2020-03-22 20:17] LABS: Glucose,Whole Blood 217 mg/dL (75-99)
[2020-03-22 20:24] LABS: INR 0.9 (<1.2)
[2020-03-22 20:25] LABS: Partial Thromboplastin Time 24.5 sec (22.0-30.0); Prothrombin Time 9.9 sec (9.0-12.0)
[2020-03-22] MEDS: ATORVASTATIN 10 MG TAB PO SCH (20:44)
[2020-03-22] MEDS: HEPARIN SOD,PORK IN 0.45% NACL 25,000 UNIT in 0.45% NACL 1 250ML.BAG IV SCH (20:47)
[2020-03-22] MEDS ORDERED: INSULIN DETEMIR (LEVEMIR) 100 UNIT/ML SYR SQ SCH (21:00)
[2020-03-23 02:34] LABS: Glucose,Whole Blood 224 mg/dL (75-99)
[2020-03-23 03:53] LABS: Basophils # (A) 0.1 k/uL (0-0.2); Basophils % (A) 1 %; Eosinophils # (A) 0.5 k/uL (0-0.7); Eosinophils % (A) 3 %; HCT 36.6 % (34.0-46.0); HGB 11.4 gm/dL (11.4-16.0); Lymphocytes # (A) 5.7 k/uL (1.0-4.8); MCH 28.6 pg (25.0-35.0); MCV 92.4 fL (80.0-100.0); Monocytes # (A) 0.7 k/uL (0-1.0); Monocytes % (A) 5 %; Neutrophils # (A) 7.5 k/uL (1.3-7.7); Neutrophils % (A) 51 %; Platelet Count 246 k/uL (150-450); RBC 3.96 m/uL (3.80-5.40); RDW 13.9 % (11.5-15.5); WBC 14.6 k/uL (3.8-10.6)
[2020-03-23 04:07] LABS: Lymphocytes % (A) 39 %
[2020-03-23 04:10] LABS: Calcium 8.5 mg/dL (8.4-10.2); Potassium 4.3 mmol/L (3.5-5.1)
[2020-03-23 06:03] LABS: Glucose,Whole Blood 194 mg/dL (75-99)
[2020-03-23] MEDS: INSULIN ASPART (NovoLOG) 100 UNIT/ML VIAL SQ SCH ×7 (06:24→20:58)
[2020-03-23] MEDS: METOPROLOL TARTRATE 12.5 MG TAB PO SCH ×2 (08:52→20:57)
[2020-03-23] MEDS: HEPARIN SODIUM,PORCINE 5,000 UNIT/ML 1 ML VIAL IV PRN ×2 (10:15→17:44)
--- NOTE | 2020-03-23 10:49 | ECHOF ---
Referral Reason:elevTrop MEASUREMENTS -------- HEIGHT: 157.5 cm WEIGHT: 61.2 kg BP: 137/65 IVSd: 1.7 cm (0.6 - 1.1) LVIDd: 3.7 cm (3.9 - 5.3) LVPWd: 1.7 cm (0.6 - 1.1) IVSs: 1.7 cm LVIDs: 2.7 cm LVPWs: 2.1 cm RVIDd: 4.0 cm (< 3.3) LAESV Index (A-L): 35.00 ml/m Ao Diam: 3.4 cm (2.0 - 3.7) AV Cusp: 1.8 cm (1.5 - 2.6) EPSS: 0.9 cm MV E Dakota: 0.56 m/s MV DecT: 244 ms MV A Dakota: 1.02 m/s MV E/A Ratio: 0.54 RAP: 5.00 mmHg RVSP: 24.92 mmHg MV EF SLOPE: 63.65 mm/s (70 - 150) MV EXCURSION: 12.49 mm (> 18.000) FINDINGS -------- Sinus rhythm. This was a technically difficult study with suboptimal apical views. There is moderate concentric left ventricular hypertrophy. Overall left ventricular systolic functi on is normal with, an EF between 55 - 60 %. The diastolic filling pattern is normal for the age of the patient 9.55. The right ventricle is moderately enlarged. LA is moderately dilated 34-39 ml/m2 The right atrium is mildly enlarged. Lumason used Interatrial and interventricular septum intact. The aortic valve is trileaflet and appears structurally normal. There is no evidence of aortic regu rgitation. There is no evidence of aortic stenosis. Rnsn-td-nymehmka mitral regurgitation is present. Mild tricuspid regurgitation present. There is no evidence of pulmonary hypertension. The right v entricular systolic pressure, as measured by Doppler, is 24.92mmHg. There is no pulmonic regurgitation present. The aortic root size is normal. Normal inferior vena cava with normal inspiratory collapse consistent with estimated right atrial pre ssure of 5 mmHg. There is no pericardial effusion. CONCLUSIONS -------- 1. Sinus rhythm. 2. This was a technically difficult study with suboptimal apical views. 3. There is moderate concentric left ventricular hypertrophy. 4. Overall left ventricular systolic function is normal with, an EF between 55 - 60 %. 5. The diastolic filling pattern is normal for the age of the patient 9.55 6. The right ventricle is moderately enlarged. 7. LA is moderately dilated 34-39 ml/m2 8. The right atrium is mildly enlarged. 9. Lumason used 10. Interatrial and interventricular septum intact. 11. The aortic valve is trileaflet and appears structurally normal. 12. There is no evidence of aortic regurgitation. 13. There is no evidence of aortic stenosis. 14. Myvy-xt-fzcnalkn mitral regurgitation is present. 15. Mild tricuspid regurgitation present. 16. There is no evidence of pulmonary hypertension. 17. The right ventricular systolic pressure, as measured by Doppler, is 24.92mmHg. 18. There is no pulmonic regurgitation present. 19. The aortic root size is normal. 20. Normal inferior vena cava with normal inspiratory collapse consistent with estimated right atrial pressure of 5 mmHg. 21. There is no pericardial effusion. [employer]OSS: Leonor Goetz RDCS
[2020-03-23 11:17] LABS: Hemoglobin A1C 7.6 % (4.0-6.0)
[2020-03-23 11:34] LABS: Glucose,Whole Blood 162 mg/dL (75-99)
[2020-03-23] MEDS: CEFDINIR 300 MG CAP PO SCH ×2 (12:20→20:57)
--- NOTE | 2020-03-23 12:46 | P.CRDCN ---
History of Present Illness Consult date: 03/23/20 Reason for Consult (text): Abnormal troponin Chief complaint: Mental status changes History of present illness: This is a pleasant 69-year-old female with history of hypertension, diabetes, hyperlipidemia, GERD, asthma, history of osteomyelitis of the left toe for which she underwent an amputation in 2018, chronic kidney disease. She also had an echo cardiac gram with Doppler study performed in 2018 which revealed a normal left ventricular systolic function. She presented to the hospital on this occasion after her found her to be unresponsive and having significant mental status changes. Her blood sugar was documented at that time to be around 29. She had a very similar presentation to the hospital in 2018. Blood pressure 148/68, heart rate in the 60s, 99% on room air. White blood cell count 14.6, hemoglobin 11.4, platelet count 246. Sodium 139, potassium 4.3, BUN 33, creatinine 1.3. Troponins 0.03, 0.9, 1.1, 0.9. An echocardiogram with Doppler study was also performed here, which remains pending at this time. Patient denies having any chest discomfort in her breathing overall has been stable. Cardiology consultation was requested because of the abnormality in troponin. Past Medical History Past Medical History: Asthma, Diabetes Mellitus, GERD/Reflux, Skin Disorder Additional Past Medical History / Comment(s): "gallbladder functioning 30%", hx gout, woung left great toe, frequent UTI's, pt stated she is on bp and cholesterol meds as a preventative d/t her dm. neuropthy. History of Any Multi-Drug Resistant Organisms: None Reported Past Surgical History: Back Surgery, Ear Surgery, Hysterectomy, Tonsillectomy Additional Past Surgical History / Comment(s): pilonidial cyst, spinal fusion, backsx to removed spurs.renée cataracts, shots in eyes from retinal dr. [employer] Past Anesthesia/Blood Transfusion Reactions: Motion Sickness Past Psychological History: No Psychological Hx Reported Additional Psychological History / Comment(s): . 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 No international travel. No animal exposures. Stopped tobacco smoking several years ago and denies significant alcohol use Smoking Status: Former smoker Past Alcohol Use History: Occasional Additional Past Alcohol Use History / Comment(s): started smoking age 15, 1 ppd, quit 2006 Past Drug Use History: None Reported - Past Family History Mother Family Medical History: Cancer Father Additional Family Medical History / Comment(s): blood clot in arm Brother(s) Family Medical History: Cancer Medications and Allergies Home Medications Medication Instructions Recorded Confirmed Type Omeprazole 20 mg PO DAILY PRN 08/22/16 03/22/20 History Cholecalciferol [Vitamin D3 (25 2,000 unit PO DAILY 01/16/18 03/22/20 History Mcg = 1000 Iu)] Atorvastatin Calcium [Lipitor] 10 mg PO HS 03/22/20 03/22/20 History INSULIN ASPART (NovoLOG) [NovoLOG See Protocol SQ AC-TID 03/22/20 03/22/20 History (formulary)] Insulin Glargine,Hum.rec.anlog 70 unit SQ HS 03/22/20 03/22/20 History [Lantus Solostar] Psyllium Husk 100% [Metamucil 6 gm PO DAILY 03/22/20 03/22/20 History Packet] Allergies Allergy/AdvReac Type Severity Reaction Status Date / Time aspirin Allergy Anaphylaxis Verified 03/22/20 11:09 ibuprofen [From Motrin] Allergy Anaphylaxis Verified 03/22/20 11:09 NSAIDS (Non-Steroidal Allergy Anaphylaxis Verified 03/22/20 11:09 Anti-Inflamma flu vac Allergy Anaphylaxis Uncoded 03/22/20 01:38 Physical Exam Vitals: Vital Signs Temp Pulse Resp BP Pulse Ox 03/23/20 11:41 97.5 F L 61 16 149/69 99 03/23/20 08:00 97.6 F 68 18 150/66 98 03/23/20 04:00 98.1 F 67 18 137/65 98 03/23/20 03:00 91 L 03/23/20 00:00 98.6 F 72 18 109/54 96 03/22/20 20:00 98.8 F 69 18 102/49 98 03/22/20 15:25 98.7 F 70 16 108/49 95 Intake and Output 03/22/20 03/23/20 03/23/20 22:59 06:59 14:59 Intake Total 240 74.007 290.056 Output Total 250 460 Balance -10 -385.993 290.056 Intake: Intake, IV Titration 74.007 50.056 Amount Heparin Sod,Pork in 0.45% 74.007 50.056 NaCl 25,000 unit In 0.45 % NaCl 1 250ml.bag @ 11. 43 UNITS/KG/HR 10.001 mls /hr IV .Q24H [facility] Rx#: [id number] Oral 240 240 Output: Urine 250 460 Other: # Voids 1 1 Weight 61.6 kg PHYSICAL EXAMINATION: GENERAL: 69-year-old female in no acute distress at the time of my examination HEENT: Head is atraumatic, normocephalic. Pupils equal, round. Sclera anicteric. Conjunctiva are clear. Mucous membranes of the mouth are moist. Neck is supple. There is no elevated jugular venous pressure. No carotid bruit is heard. HEART EXAMINATION: Heart S1, S2 normal. No murmur or gallop heard. CHEST EXAMINATION: Lungs are clear to auscultation and precussion. No chest wall tenderness is noted on palpation or with deep breathing. ABDOMEN: Soft, nontender. Bowel sounds are heard. No organomegaly noted. EXTREMITIES: 2+ peripheral pulses with no evidence of peripheral edema and no calf tenderness noted. NEUROLOGIC patient is awake, alert and oriented 3 . . Results 03/23/20 02:55 03/23/20 02:55 Cardiac Enzymes 03/22/20 03/22/20 Range/Units 13:06 19:49 Troponin I 1.160 H* 0.939 H* (0.000-0.034) ng/mL Coagulation 03/22/20 03/23/20 03/23/20 Range/Units 19:49 02:55 08:46 PT 9.9 (9.0-12.0) sec APTT 24.5 74.7 H 26.5 (22.0-30.0) sec Lipids 03/23/20 Range/Units 02:55 Triglycerides 137 (<150) mg/dL Cholesterol 112 (<200) mg/dL HDL Cholesterol 44 (40-60) mg/dL CBC 03/22/20 03/23/20 Range/Units 19:49 02:55 WBC 15.2 H 14.6 H (3.8-10.6) k/uL RBC 3.88 3.96 (3.80-5.40) m/uL Hgb 11.1 L 11.4 (11.4-16.0) gm/dL Hct 36.0 36.6 (34.0-46.0) % Plt Count 261 246 (150-450) k/uL Comprehensive Metabolic Panel 03/23/20 Range/Units 02:55 Sodium 139 (137-145) mmol/L Potassium 4.3 (3.5-5.1) mmol/L Chloride 105 (98-107) mmol/L Carbon Dioxide 26 (22-30) mmol/L BUN 33 H (7-17) mg/dL Creatinine 1.38 H (0.52-1.04) mg/dL Glucose 213 H (74-99) mg/dL Calcium 8.5 (8.4-10.2) mg/dL Current Medications Generic Name Dose Route Start Last Admin Trade Name Freq PRN Reason Stop Dose Admin Atorvastatin Calcium 10 mg 03/22/20 21:00 03/22/20 20:44 Lipitor PO 10 mg HS [facility] Administration Cefdinir 300 mg 03/23/20 11:15 03/23/20 12:20 Omnicef PO 300 mg BID [facility] Administration Heparin Sodium (Porcine) 0 unit 03/22/20 19:41 03/23/20 10:15 Heparin IV 4,000 unit PER PROTOCOL PRN Administration Low PTT Protocol Heparin Sodium/Sodium Chloride 250 mls @ 10.001 mls/hr 03/22/20 19:45 03/23/20 10:15 25,000 unit/ Sodium Chloride IV 12.43 units/kg/hr .Q24H [facility] 10.876 mls/hr Titration Protocol 11.43 UNITS/KG/HR Insulin Aspart 0 unit 03/22/20 12:30 03/23/20 12:20 Novolog SQ 1 unit ACHS [facility] Administration Protocol Insulin Aspart 8 unit 03/22/20 12:30 03/23/20 12:20 Novolog SQ 8 unit AC-TID [facility] Administration Insulin Detemir 40 unit 03/22/20 21:00 03/22/20 20:48 Levemir SQ 40 unit HS [facility] Administration Metoprolol Tartrate 12.5 mg 03/23/20 09:00 03/23/20 08:52 Lopressor PO 12.5 mg BID [facility] Administration Nitroglycerin 0.4 mg 03/22/20 02:41 Nitrostat SUBLINGUAL Q5M PRN Chest Pain Intake and Output 03/22/20 03/23/20 03/23/20 22:59 06:59 14:59 Intake Total 240 74.007 290.056 Output Total 250 460 Balance -10 -385.993 290.056 Intake: Intake, IV Titration 74.007 50.056 Amount Heparin Sod,Pork in 0.45% 74.007 50.056 NaCl 25,000 unit In 0.45 % NaCl 1 250ml.bag @ 11. 43 UNITS/KG/HR 10.001 mls /hr IV .Q24H [facility] Rx#: [id number] Oral 240 240 Output: Urine 250 460 Other: # Voids 1 1 Weight 61.6 kg 03/23/20 02:55 03/23/20 02:55 EKG Interpretations (text) EKG on presentation here shows a normal sinus rhythm with LVH strain pattern, nonspecific ST-T wave changes Assessment and Plan Plan: Assessment and plan #1 mental status changes, likely secondary to hypoglycemia #2 mild asthma #3 hypertension #4 diabetes #5 hyperlipidemia #6 peripheral neuropathy #7 hx of left great toe amputation with osteomyelitis #8 chronic kidney disease #9 troponin elevation, cannot completely rule out underlying coronary artery disease. Plan We will review the patient's echocardiogram with Doppler study. We will also get the records from the office to see what most recent testing has been done there. It has been explained to the patient, that the troponin abnormality may be secondary to the hypoglycemia and renal function, but we cannot completely rule out underlying coronary artery disease in a diabetic patient. Further recommendations to follow. DNP note has been reviewed, I agree with a documented findings and plan of care. Patient was seen and examined.
[2020-03-23 16:29] LABS: Glucose,Whole Blood 251 mg/dL (75-99)
--- NOTE | 2020-03-23 18:15 | P.PN ---
Subjective Progress Note Date: 03/23/20 (delayed charting seen at 1030) Principal diagnosis: Altered mentation Patient is a 69-year-old female past medical history of diabetes mellitus type 2 insulin-dependent, neuropathy, and chronic lower extremity wound who presented to the ER via EMS secondary to hypoglycemia. In the middle of her night her awoke and noticed she was not acting normally. He started feeding her sugar as he felt that she was hypoglycemic. When EMS arrived her blood sugar was still 29 which was more awake. In the ER she was found to have a blood sugar of 38. She ultimately required multiple doses of D50 and was started on a D5 half normal saline drip. Laboratory analysis demonstrated mildly elevated troponin 0.036, white blood cell count of 15, lactic acid 2.1, and a creatinine of 1.22. She was admitted for further monitoring of her hypoglycemia. Early in the morning on 03/22 she was noted to have continued low blood sugars despite D5 half-normal drip and was changes into a D10 drip. Her blood sugar then improved and she was transitioned back to D5 half-normal drip and this was eventually stopped. She was noted to have increasing troponin. She was started on a heparin gtt, her statin was continued, she was not started on ASA due to hx of anaphylaxis.Cardio was consulted and echo was ordered. Her insulin was resumed at lower doses and she tolerated this well. A1C 7.6 Patient seen and examined at bedside. No chest pain, SOB or nausea. No episodes of hypoglycemia overnight. No other complaints currently. We again discussed her insulin regiment. She has been having some morning blood sugars of 85ish but nothing truly hypoglycemic. She has been working with the extension educator at Dr. Adamson's office. We discussed how to self titrate her night time insulin. We also discussed that at 70 units she may benefit from split dosing of lantus. A total of 27 minutes of counseling time spent. Objective - Vital Signs Vital signs: Vital Signs Temp 98.5 F 03/23/20 15:44 Pulse 65 03/23/20 15:44 Resp 16 03/23/20 15:44 BP 111/57 03/23/20 15:44 Pulse Ox 96 03/23/20 15:44 Intake & Output 03/22/20 03/23/20 03/23/20 18:59 06:59 18:59 Intake Total 480 74.007 611.807 Output Total 250 460 Balance 230 -385.993 611.807 Weight 61.6 kg Intake: Intake, IV Titration 74.007 131.807 Amount Heparin Sod,Pork in 0.45% 74.007 131.807 NaCl 25,000 unit In 0.45 % NaCl 1 250ml.bag @ 11. 43 UNITS/KG/HR 10.001 mls /hr IV .Q24H [facility] Rx#: [id number] Oral 480 480 Output: Urine 250 460 Other: # Voids 1 1 3 # Bowel Movements 2 - Exam General: non toxic, no distress, appears at stated age obese Derm: warm, dry Head: atraumatic, normocephalic, symmetric Eyes: EOMI, no lid lag, anicteric sclera Mouth: no lip lesion, mucus membranes moist Cardiovascular: S1S2 reg, no murmur, positive posterior tibial pulse bilateral, Lungs: Decreased bs bilateral, no rhonchi, no rales , no accessory muscle use Abdominal: soft, nontender to palpation, no guarding, no appreciable organomegaly Ext: no gross muscle atrophy, trace edema bilateral lower extremities, no contractures Neuro: CN II-XI grossly intact, no focal neuro deficits Psych: Alert, oriented, appropriate affect - Labs CBC & Chem 7: 03/23/20 02:55 03/23/20 02:55 Labs: Abnormal Lab Results - Last 24 Hours (Table) 03/22/20 03/22/20 03/22/20 Range/Units 07:30 19:49 19:49 WBC 15.2 H (3.8-10.6) k/uL Hgb 11.1 L (11.4-16.0) gm/dL MCHC 30.9 L (31.0-37.0) g/dL Neutrophils # 9.1 H (1.3-7.7) k/uL Lymphocytes # (1.0-4.8) k/uL APTT (22.0-30.0) sec BUN (7-17) mg/dL Creatinine (0.52-1.04) mg/dL Glucose (74-99) mg/dL POC Glucose (mg/dL) (75-99) mg/dL Hemoglobin A1c 7.6 H (4.0-6.0) % Troponin I 0.939 H* (0.000-0.034) ng/mL 03/22/20 03/23/20 03/23/20 Range/Units 20:16 02:33 02:55 WBC (3.8-10.6) k/uL Hgb (11.4-16.0) gm/dL MCHC (31.0-37.0) g/dL Neutrophils # (1.3-7.7) k/uL Lymphocytes # (1.0-4.8) k/uL APTT (22.0-30.0) sec BUN 33 H (7-17) mg/dL Creatinine 1.38 H (0.52-1.04) mg/dL Glucose 213 H (74-99) mg/dL POC Glucose (mg/dL) 217 H 224 H (75-99) mg/dL Hemoglobin A1c (4.0-6.0) % Troponin I (0.000-0.034) ng/mL 03/23/20 03/23/20 03/23/20 Range/Units 02:55 02:55 06:01 WBC 14.6 H (3.8-10.6) k/uL Hgb (11.4-16.0) gm/dL MCHC (31.0-37.0) g/dL Neutrophils # (1.3-7.7) k/uL Lymphocytes # 5.7 H (1.0-4.8) k/uL APTT 74.7 H (22.0-30.0) sec BUN (7-17) mg/dL Creatinine (0.52-1.04) mg/dL Glucose (74-99) mg/dL POC Glucose (mg/dL) 194 H (75-99) mg/dL Hemoglobin A1c (4.0-6.0) % Troponin I (0.000-0.034) ng/mL 03/23/20 03/23/20 03/23/20 Range/Units 11:32 16:12 16:27 WBC (3.8-10.6) k/uL Hgb (11.4-16.0) gm/dL MCHC (31.0-37.0) g/dL Neutrophils # (1.3-7.7) k/uL Lymphocytes # (1.0-4.8) k/uL APTT 34.7 H (22.0-30.0) sec BUN (7-17) mg/dL Creatinine (0.52-1.04) mg/dL Glucose (74-99) mg/dL POC Glucose (mg/dL) 162 H 251 H (75-99) mg/dL Hemoglobin A1c (4.0-6.0) % Troponin I (0.000-0.034) ng/mL Microbiology - Last 24 Hours (Table) 03/22/20 14:00 Urine Culture - Preliminary Urine,Clean Catch Assessment and Plan Assessment: Hypoglycemia, drug induced due to Insulin with diabetes mellitus type 2 and neuropathy - Resume sliding scale insulin plus NovoLog fixed dose increase. - Levemir dose 45 units tonight - a1C 7.6 -Continue with outpatient diabetic education. - Follow BS Elevated troponin - Patient has anaphylactic reaction to aspirin will not be started at this point in time - heparin gtt -Cardio recs appreciated -statin -blood pressure improved BB -Likely stress-induced secondary to severe hypoglycemia however concern is for possible silent UT -echo with preserved EF and no significant wall motion abnormalities -Telemetry Hypertensive urgency, resolved -No history of hypertension per patient -responded to lisinopril but transitioned to BB in light of elevated troponin -Follow blood pressures Bacturia - start vantin in light of elevated WBC count and fatigue - Await urine culture if negative or less that 50,000 WBC then stop abx. Obesity with BMI 35.3 -Structured outpatient weight loss Lactic acidosis, improved -IV fluids stopped leukocytosis -Suspect stress-induced -Repeat CBC in a.m. Toxic metabolic encephalopathy, resolved Hypokalemia, resolved Chronic: CKD stage III, creatinine at baseline DVT prophylaxis: Heparin gtt Discussed with: patient, nursing Anticipated discharge: 1-[address]: home A total of 35 minutes was spent on the care of this complex patient more than 50% of the time was spent in counseling and care coordination.
[2020-03-23 20:26] LABS: Glucose,Whole Blood 238 mg/dL (75-99)
[2020-03-23] MEDS: ATORVASTATIN 10 MG TAB PO SCH (20:57)
[2020-03-23] MEDS: HEPARIN SOD,PORK IN 0.45% NACL 25,000 UNIT in 0.45% NACL 1 250ML.BAG IV SCH (20:58)
[2020-03-23] MEDS ORDERED: INSULIN DETEMIR (LEVEMIR) 100 UNIT/ML SYR SQ SCH (21:00)
[2020-03-23 23:47] VITALS: TEMP 98
[2020-03-24 02:31] LABS: Glucose,Whole Blood 242 mg/dL (75-99)
[2020-03-24 03:55] VITALS: RESP 16
[2020-03-24 06:26] LABS: Glucose,Whole Blood 218 mg/dL (75-99)
[2020-03-24] MEDS: INSULIN ASPART (NovoLOG) 100 UNIT/ML VIAL SQ SCH ×4 (06:38→12:17)
[2020-03-24] MEDS: CEFDINIR 300 MG CAP PO SCH (08:51)
[2020-03-24] MEDS: METOPROLOL TARTRATE 12.5 MG TAB PO SCH (08:51)
[2020-03-24 09:45] VITALS: BP 119/75; PULSE 50
[2020-03-24 09:51] LABS: Basophils # (A) 0.1 k/uL (0-0.2); Basophils % (A) 1 %; Eosinophils # (A) 0.6 k/uL (0-0.7); Eosinophils % (A) 4 %; HCT 35.1 % (34.0-46.0); HGB 11.2 gm/dL (11.4-16.0); Hypochromasia Slight; Lymphocytes # (A) 3.6 k/uL (1.0-4.8); Lymphocytes % (A) 28 %; MCH 29.8 pg (25.0-35.0); MCHC 31.8 g/dL (31.0-37.0); MCV 93.8 fL (80.0-100.0); Mean Platelet Volume 7.9; Monocytes # (A) 0.6 k/uL (0-1.0); Monocytes % (A) 5 %; Neutrophils # (A) 7.9 k/uL (1.3-7.7); Neutrophils % (A) 61 %; Platelet Count 249 k/uL (150-450); RBC 3.74 m/uL (3.80-5.40); RDW 13.9 % (11.5-15.5); WBC 12.9 k/uL (3.8-10.6)
[2020-03-24 12:13] LABS: Glucose,Whole Blood 210 mg/dL (75-99)
--- NOTE | 2020-03-24 15:47 | P.PN ---
Subjective Progress Note Date: 03/24/20 This is a pleasant 69-year-old female with history of hypertension, diabetes, hyperlipidemia, GERD, asthma, history of osteomyelitis of the left toe for which she underwent an amputation in 2018, chronic kidney disease. She also had an echo cardiac gram with Doppler study performed in 2018 which revealed a normal left ventricular systolic function. She presented to the hospital on this occasion after her found her to be unresponsive and having significant mental status changes. Her blood sugar was documented at that time to be around 29. She had a very similar presentation to the hospital in 2018. Blood pressure 148/68, heart rate in the 60s, 99% on room air. White blood cell count 14.6, hemoglobin 11.4, platelet count 246. Sodium 139, potassium 4.3, BUN 33, creatinine 1.3. Troponins 0.03, 0.9, 1.1, 0.9. An echocardiogram with Doppler study was also performed here, which remains pending at this time. Patient denies having any chest discomfort in her breathing overall has been stable. Cardiology consultation was requested because of the abnormality in troponin. 03/24/2020 Patient was seen and examined this morning, feels well, breathing stable, continues to deny any chest discomfort. Echocardiogram with Doppler study was performed which revealed a normal left ventricular systolic function. Patient was still advised to undergo further evaluation by stress testing, she preferred to be discharged home and have the stress test as an outpatient tomorrow or Sunday. Objective - Vital Signs Vital signs: Vital Signs Temp 98.0 F 03/24/20 08:00 Pulse 50 L 03/24/20 12:00 Resp 16 03/24/20 12:00 BP 119/75 03/24/20 08:00 Pulse Ox 99 03/24/20 08:00 Intake & Output 03/23/20 03/24/20 03/24/20 18:59 06:59 18:59 Intake Total 611.807 685.046 5017 Output Total 120 Balance 611.807 584.580 4496 Weight 62.1 kg Intake: Intake, IV Titration 131.807 108.458 Amount Heparin Sod,Pork in 0.45% 131.807 108.458 NaCl 25,000 unit In 0.45 % NaCl 1 250ml.bag @ 11. 43 UNITS/KG/HR 10.001 mls /hr IV .Q24H [facility] Rx#: [id number] Oral 247 [id number] Output: Urine 120 Other: # Voids 3 1 # Bowel Movements 2 - Exam PHYSICAL EXAMINATION: GENERAL: 69-year-old female in no acute distress at the time of my examination HEENT: Head is atraumatic, normocephalic. Pupils equal, round. Sclera anicteric. Conjunctiva are clear. Mucous membranes of the mouth are moist. Neck is supple. There is no elevated jugular venous pressure. No carotid bruit is heard. HEART EXAMINATION: Heart S1, S2 normal. No murmur or gallop heard. CHEST EXAMINATION: Lungs are clear to auscultation and precussion. No chest wall tenderness is noted on palpation or with deep breathing. ABDOMEN: Soft, nontender. Bowel sounds are heard. No organomegaly noted. EXTREMITIES: 2+ peripheral pulses with no evidence of peripheral edema and no calf tenderness noted. NEUROLOGIC patient is awake, alert and oriented 3 . . - Labs CBC & Chem 7: 03/24/20 09:27 03/23/20 02:55 Labs: Abnormal Lab Results - Last 24 Hours (Table) 03/23/20 03/23/20 03/23/20 Range/Units 16:12 16:27 20:24 WBC (3.8-10.6) k/uL RBC (3.80-5.40) m/uL Hgb (11.4-16.0) gm/dL Neutrophils # (1.3-7.7) k/uL APTT 34.7 H (22.0-30.0) sec POC Glucose (mg/dL) 251 H 238 H (75-99) mg/dL 03/24/20 03/24/20 03/24/20 Range/Units 00:49 02:29 06:24 WBC (3.8-10.6) k/uL RBC (3.80-5.40) m/uL Hgb (11.4-16.0) gm/dL Neutrophils # (1.3-7.7) k/uL APTT 106.7 H* (22.0-30.0) sec POC Glucose (mg/dL) 242 H 218 H (75-99) mg/dL 03/24/20 03/24/20 03/24/20 Range/Units 09:27 09:27 12:12 WBC 12.9 H (3.8-10.6) k/uL RBC 3.74 L (3.80-5.40) m/uL Hgb 11.2 L (11.4-16.0) gm/dL Neutrophils # 7.9 H (1.3-7.7) k/uL APTT 64.6 H (22.0-30.0) sec POC Glucose (mg/dL) 210 H (75-99) mg/dL Microbiology - Last 24 Hours (Table) 03/22/20 14:00 Urine Culture - Preliminary Urine,Clean Catch Gram Neg Bacilli Assessment and Plan Plan: Assessment and plan #1 mental status changes, likely secondary to hypoglycemia #2 mild asthma #3 hypertension #4 diabetes #5 hyperlipidemia #6 peripheral neuropathy #7 hx of left great toe amputation with osteomyelitis #8 chronic kidney disease #9 troponin elevation, cannot completely rule out underlying coronary artery disease. Plan Echocardiogram with Doppler study revealed a normal left ventricular systolic function. From cardiology's perspective the patient may be able to be disch arged home today. She will be scheduled for outpatient stress test tomorrow or Sunday, follow-up with Dr. Villarreal in the office DNP note has been reviewed, I agree with a documented findings and plan of care. Patient was seen and examined.
--- NOTE | 2020-03-24 18:42 | P.DS ---
Providers Date of admission: 03/24/20 09:45 Expected date of discharge: 03/24/20 Attending physician: Jes Mendoza MD Consults: 03/22/20 09:26 Consult Physician Routine Consulting Provider: Devin Menezes Consult Reason/Comments: Elevated troponin Do you want consulting provider notified?: Yes Primary care physician: [facility] Course: Discharge Diagnosis: Hypoglycemia, drug induced due to Insulin with diabetes mellitus type 2 and neuropathy Elevated troponin Hypertensive urgency, resolved E. Coli UTI Obesity with BMI 35.3 Lactic acidosi Toxic metabolic encephalopathy Hypokalemia CKD stage III Hospital Course: Patient is a 69-year-old female with diabetes mellitus type 2 insulin- dependent, neuropathy, and chronic lower extremity wound who presented to the ER via EMS secondary to hypoglycemia. In the middle of the night her awoke and noticed she was not acting normally. He felt that she was hypoglycemia and started giving her sugar. When EMS arrived her blood sugar was still 29 but she was more awake. In the ER she was found to have a blood sugar of 38. She ultimately required multiple doses of D50 and was started on a D5 half normal saline drip. Laboratory analysis demonstrated mildly elevated troponin 0.036, white blood cell count of 15, lactic acid 2.1, and a creatinine of 1.22. She was admitted for further monitoring of her hypoglycemia. Early in the morning on 03/22 she was noted to have continued low blood sugars despite D5 half-normal drip and was changes into a D10 drip. Her blood sugar then improved and she was transitioned back to D5 half-normal drip and this was eventually stopped. She was noted to have increasing troponin. She was started on a heparin gtt, her statin was continued, she was not started on ASA due to hx of anaphylaxis. Cardio was consulted and echo showed preserved EF and no wall motion abnormalities. Her insulin was resumed at lower doses and she tolerated this well. A1C 7.6. She denies any chest pain and she was determined stable for discharge home. She was given the option of inpatient versus outpatient stress test elected to go home today and have an outpatient stress test that was arranged for 03/25. She is given instructions on how to slowly increase her insulin over time. She is given a calendar to help with this. I instructed her that she likely will need close to her normal 70 units of insulin, however we want to prevent hypoglycemia. We also had multiple discussions about switching her long-acting insulin to twice daily dosing or injecting into 2 different areas to avoid difficulty with absorption. She was agreeable to this plan of care. She was also found to have a E. coli urinary tract infection that was resistant to Cipro. She was started on Vantin and this prescription was continued on discharge. Patient seen and examined at bedside. No chest pain, SOB, nausea or vomiting, feeling well. Discussed risk and benefits of outpatient stress test. Patient would like outpatient stress test. Vital signs reviewed and stable. General: non toxic, no distress, appears at stated age Derm: warm, dry Head: atraumatic, normocephalic, symmetric Eyes: EOMI, no lid lag, anicteric sclera Mouth: no lip lesion, mucus membranes moist Cardiovascular: S1S2 reg, no murmur, positive posterior tibial pulse bilateral, Lungs: CTA bilateral, no rhonchi, no rales , no accessory muscle use Abdominal: soft, nontender to palpation, no guarding, no appreciable organomegaly Ext: no gross muscle atrophy, no edema, no contractures Neuro: CN II-XI grossly intact, no focal neuro deficits Psych: Alert, oriented, appropriate affect A total of 65 minutes of time were spent preparing this complex [facility] . Patient Condition at Discharge: Fair Plan - Discharge Summary Discharge Rx Participant: No New Discharge Prescriptions: New Metoprolol Tartrate [Lopressor] 12.5 mg PO BID #60 tab Cefdinir [Omnicef] 300 mg PO BID #9 cap Fluconazole [Diflucan] 150 mg PO ONCE #1 tab Continue Omeprazole 20 mg PO DAILY PRN PRN Reason: acid reflux Cholecalciferol [Vitamin D3 (25 Mcg = 1000 Iu)] 2,000 unit PO DAILY INSULIN ASPART (NovoLOG) [NovoLOG (formulary)] See Protocol SQ AC-TID Atorvastatin Calcium [Lipitor] 10 mg PO HS Psyllium Husk 100% [Metamucil Packet] 6 gm PO DAILY Changed Insulin Glargine,Hum.rec.anlog [Lantus Solostar] 50 unit SQ HS #0 Discharge Medication List Omeprazole 20 mg PO DAILY PRN 08/22/16 [History] Cholecalciferol [Vitamin D3 (25 Mcg = 1000 Iu)] 2,000 unit PO DAILY 03/21/18 [History] Atorvastatin Calcium [Lipitor] 10 mg PO HS 03/22/20 [History] INSULIN ASPART (NovoLOG) [NovoLOG (formulary)] See Protocol SQ AC-TID 03/22/20 [History] Psyllium Husk 100% [Metamucil Packet] 6 gm PO DAILY 03/22/20 [History] Cefdinir [Omnicef] 300 mg PO BID #9 cap 03/24/20 [Rx] Fluconazole [Diflucan] 150 mg PO ONCE #1 tab 03/24/20 [Rx] Insulin Glargine,Hum.rec.anlog [Lantus Solostar] 50 unit SQ HS #0 03/24/20 [Rx] Metoprolol Tartrate [Lopressor] 12.5 mg PO BID #60 tab 03/24/20 [Rx] Follow up Appointment(s)/Referral(s): Reed Griffith MD [STAFF PHYSICIAN] - 03/31/20 4:30 pm Norman Jewell MD [Primary Care Provider] - 03/26/20 8:30 am Patient Instructions/Handouts: Hypoglycemia in a Person with Diabetes (DC), What to Do if Your Blood Sugar is Low (DC) Activity/Diet/Wound Care/Special Instructions: Activity: as tolerated Diet: Carb consistent Special Instructions: Return to the hospital if any chest pain, nausea, or shortness of breath Lantus instructions: Take 50 units this evening, check blood sugar in AM if Blood sugars is greater than 140 for 2 mornings increase your lantus by 2 units (52 units total) Night prior to stress test take lantus 35 units. Dobutamine Stess Echocardiogram 03/25/20 @ 0915 Discharge Disposition: HOME SELF-CARE
[2020-03-25] MEDS ORDERED: CEFDINIR 300 MG CAP PO SCH (09:00)
== END 2020-03-24 15:45 | disposition home or self-care (01) | DRG 638 ==
LOC: EC 01:30 → 3SCARD 02:41 → OBSVTOIN 03-24 09:45
PROVIDERS: ADMIT Internal Medicine; ATTEND Internal Medicine
DX: E11.649 Type 2 diabetes mellitus with hypoglycemia without coma (principal); E87.2 Acidosis; N39.0 Urinary tract infection, site not specified; Z16.23 Resistance to quinolones and fluoroquinolones; T38.3X5A Adverse effect of insulin and oral hypoglycemic [antidiabetic] drugs, initial encounter; Z79.4 Long term (current) use of insulin; B96.20 Unspecified Escherichia coli [E. coli] as the cause of diseases classified elsewhere; D64.9 Anemia, unspecified; E11.22 Type 2 diabetes mellitus with diabetic chronic kidney disease; Z89.422 Acquired absence of other left toe(s); Z11.59 Encounter for screening for other viral diseases; E11.40 Type 2 diabetes mellitus with diabetic neuropathy, unspecified; E66.9 Obesity, unspecified; E78.5 Hyperlipidemia, unspecified; E87.6 Hypokalemia; G92 Toxic encephalopathy; I12.9 Hypertensive chronic kidney disease with stage 1 through stage 4 chronic kidney disease, or unspecified chronic kidney disease; I16.0 Hypertensive urgency; J45.909 Unspecified asthma, uncomplicated; N18.3 Chronic kidney disease, stage 3 (moderate); Z68.35 Body mass index [BMI] 35.0-35.9, adult; Z79.899 Other long term (current) drug therapy; Z87.440 Personal history of urinary (tract) infections; M10.9 Gout, unspecified; Z87.891 Personal history of nicotine dependence; Z87.892 Personal history of anaphylaxis; Z89.412 Acquired absence of left great toe; Z90.710 Acquired absence of both cervix and uterus; Z98.1 Arthrodesis status; Z98.42 Cataract extraction status, left eye; Z98.41 Cataract extraction status, right eye; R79.89 Other specified abnormal findings of blood chemistry; Z88.6 Allergy status to analgesic agent; Z88.7 Allergy status to serum and vaccine
CPT/HCPCS: 36415; 71046; 80048; 80053; 80061; 81001; 82550; 82553; 83036; 83605; 83735; 84100; 84484; 85025; 85027; 85610; 85730; 87077; 87086; 87186; 87635; 93005; 93306; 96361; 96374; 96376; 99291

== ENCOUNTER → 2020-03-25 | Outpatient (CLI) | payer MEDICARE ==
[~2020-03-25] MED LIST: DOBUTamine DRIP for NUC MED 500 MG in DEXTROSE/WATER 1 250ML.BAG IV ONE
--- NOTE | 2020-03-25 18:50 | P.STRESS ---
- Stress Test Note Stress Test Results/Findings: Exam Performed: dobutamine stress echo with con Exam Date: 03/25/20 Reason for Exam: Syncope Height: 5 ft 2 in Weight: 192 kg Protocol: Dobutamine Stage: 30 Duration of Exercise: na Resting Heart Rate: 59 Resting Blood Pressure: 127/61 Maximum Achieved Heart Rate: 129 Maximum Achieved Blood Pressure: 167/51 85% PMHR: 128 100% PMHR: 150 METS: na Technologist Comment: Stress Test Results/Findings: Baseline 159 beats a minute, Baseline blood pressure 127/61 mmHg line baseline 12-lead ECG shows sinus rhythm with normal MS narrow QRS normal ST segments Patient received dobutamine infusion per protocol Normal blood pressure and heart rate response. Peak heart rate 129 beats a minute There was no clear-cut ECG was for ischemia no ST depression was noted No arrhythmias were noted The baseline 2-D echo images were suboptimal and therefore Definity contrast was used to delineate the LV endocardial borders There was augmentation of overall LV contractility without developer any clear- cut wall motion abnormalities On the short axis view, peak images, there appears to be an area of hypokinesis inferoseptally. However this appears to be an acquisition artifact Within this segment is evaluated in other views there is myocardial thickening noted in that segment Impression No clear-cut ECG or echocardiographic evidence for ischemia
== END | disposition home or self-care (01) ==
LOC: RADNMMAIN 09:09
PROVIDERS: ATTEND Internal Medicine Interventional Cardiology
DX: R07.9 Chest pain, unspecified (principal)
CPT/HCPCS: C8930; J1250; Q9950; 93351